=== PATIENT | female | born 1995 | race African-American/Black ===

== ENCOUNTER 2018-10-16 19:35 | Emergency (ER) | payer SELFPAY ==
[~2018-10-16] VITALS: Ht 157.5 cm; Wt 56.7 kg
[2018-10-16] MEDS ORDERED: LACTATED RINGERS 1,000 ML IV ONE ×2 (19:54→21:43)
[2018-10-16] MEDS ORDERED: ONDANSETRON 4 MG/2 ML (SDV) Z0FRAN IVP ONE (20:00)
[2018-10-16 20:07] LABS: BILIRUBIN,URINE NEGATIVE (NEGATIVE); COLOR,URINE YELLOW; GLUCOSE, URINE (UA) NEGATIVE (NEGATIVE); KETONES,URINE 1+ (NEGATIVE); LEUKOCYTE ESTERASE ,URINE 1+ (NEGATIVE); NITRITE,URINE NEGATIVE (NEGATIVE); PH,URINE 8 (5-9); PROTEIN,URINE 2+ (NEGATIVE); UROBILINOGEN,URINE 1 MG/DL (NORMAL)
[2018-10-16 20:10] LABS: BASOPHILS # (AUTO) 0.1 10^3/uL (0.0-0.1); BASOPHILS % (AUTO) 1 % (0-10); EOSINOPHILS # (AUTO) 0.2 10^3/uL (0.0-0.3); EOSINOPHILS % (AUTO) 3 % (0-10); HEMATOCRIT 39 % (35-52); HEMOGLOBIN 13.5 G/DL (11.5-16.0); LYMPHOCYTES % (AUTO) 25 % (12-44); MEAN CORPUSCULAR HEMOGLOBIN 30 PG (25-34); MEAN CORPUSCULAR HGB CONC 34 G/DL (32-36); MEAN CORPUSCULAR VOLUME 86 FL (80-99); MEAN PLATELET VOLUME 9.7 FL (7.4-10.4); MONOCYTES # (AUTO) 0.7 X 10^3 (0.0-1.0); MONOCYTES % (AUTO) 9 % (0-12); NEUTROPHILS % (AUTO) 63 % (42-75); PLATELET COUNT 441 10^3/uL (130-400); RED CELL DISTRIBUTION WIDTH 13.2 % (10.0-14.5)
[2018-10-16 20:15] LABS: AMORPHOUS SEDIMENT,UR FEW AMOR PHOSPHATE /LPF; BACTERIA,URINE TRACE /HPF; CLARITY,URINE SL CLOUDY; WBC,URINE RARE /HPF
[2018-10-16 20:20] LABS: AMPHETAMINE SCREEN, URINE NEGATIVE (NEGATIVE); BARBITURATE SCREEN URINE NEGATIVE (NEGATIVE); BENZODIAZEPINES SCREEN URINE NEGATIVE (NEGATIVE); CANNABINOID SCREEN, URINE POSITIVE (NEGATIVE); COCAINE SCREEN URINE POSITIVE (NEGATIVE); METHADONE STAT NEGATIVE (NEGATIVE); METHAMPHETAMINE SCREEN URINE S NEGATIVE (NEGATIVE); OPIATE SCREEN URINE NEGATIVE (NEGATIVE); OXYCODONE STAT NEGATIVE (NEGATIVE); PROPOXYPHENE STAT NEGATIVE (NEGATIVE); TRICYCLIC ANTIDEPRESSANTS SCRE NEGATIVE (NEGATIVE)
[2018-10-16 20:34] LABS: ALANINE AMINOTRANSFERASE 21 U/L (0-55); ALBUMIN 5.1 GM/DL (3.2-4.5); ALKALINE PHOSPHATASE 64 U/L (40-136); AMYLASE 66 U/L (25-125); BILIRUBIN,TOTAL 1.4 MG/DL (0.1-1.0); BUN/CREATININE RATIO 9; CALCIUM 10.4 MG/DL (8.5-10.1); CARBON DIOXIDE 22 MMOL/L (21-32); CHLORIDE 103 MMOL/L (98-107); CREATININE SERUM 0.86 MG/DL (0.60-1.30); GFR ESTIMATED > 60; GLUCOSE 102 MG/DL (70-105); MAGNESIUM 1.6 MG/DL (1.6-2.4); POTASSIUM 3.5 MMOL/L (3.6-5.0); SODIUM 140 MMOL/L (135-145); TOTAL PROTEIN 9.3 GM/DL (6.4-8.2)
[2018-10-16] MEDS ORDERED: PANTOPRAZOLE 40 MG (PROTONIX) VIAL IV ONE (20:45)
[2018-10-16] MEDS ORDERED: KETOROLAC 30 MG/ML VIAL IVP ONE (20:45)
[2018-10-16] MEDS ORDERED: diphenhydrAMINE 50 MG/ML INJ (BENADRYL) IM ONE (20:45)
[2018-10-16 20:59] LABS: PROTHROMBIN TIME PATIENT 13.7 SEC (12.2-14.7)
--- NOTE | 2018-10-16 21:05 | ED GI ---
General Chief Complaint: Abdominal/GI Problems Stated Complaint: VOMITING / CHEST PAIN Nursing Triage Note: Pt to ED with c/o non-stop vomiting since 0200 today. Pt reports drinking over the weekend for pt's birthday. Pt also reports sternal to L upper chest pain that began today. Pt has intermittent abdominal pain. Sepsis Screen: No Definite Risk History of Present Illness Date Seen by Provider: Oct 16, 2018 Time Seen by Provider: 19:45 Initial Comments 23 year old female reports nausea and vomiting since 0200, happening approximately every 20-30 minutes. She drank several alcoholic beverages last evening to celebrate her birthday (tequila, beer, wine, vodka, and Champagne), she was at a house with friends and has no reason to believe anyone would have put something in her drinks. No friends have similar n/v. She has drank alcohol before and not had these symptoms. She denies any illicit drug use with the alcohol, but she does report using marijuana regularly. She has had no liquid or solid po intake today Timing/Duration: 12-24 Hours Severity/Quality: Moderate Location: Epigastric, Generalized Abdomen Radiation: No Radiation Associated Symptoms: Headache, Heartburn, Nausea/Vomiting, Weakness Allergies and Home Medications Allergies Coded Allergies: No Known Drug Allergies (Unverified , 10/16/18) Patient Home Medication List Home Medication List Reviewed: Yes Review of Systems Review of Systems Constitutional: no symptoms reported, see HPI EENTM: No Symptoms Reported, See HPI Respiratory: No Symptoms Reported, See HPI Cardiovascular: No Symptoms Reported, See HPI Gastrointestinal: See HPI, Abdominal Pain; Denies Diarrhea; Nausea, Poor A ppetite, Poor Fluid Intake, Vomiting Genitourinary: No Symptoms Reported, See HPI All Other Systems Reviewed Negative Unless Noted: Yes Past Ncnkpci-Nzxhcf-Wforat Hx Past Med/Social Hx: Reviewed Nursing Past Med/Soc Hx Patient Social History Alcohol Use: Regular Use Recreational Drug Use: Yes Drug of Choice: marijuana Smoking Status: Current Someday Smoker Type Used: Cigarettes 2nd Hand Smoke Exposure: Yes Recent Foreign Travel: No Contact w/Someone Who Travel: No Recent Infectious Disease Expo: No Recent Hopitalizations: No Seasonal Allergies Seasonal Allergies: Yes Past Medical History Surgeries: No Respiratory: No Cardiac: No Neurological: No Last Menstrual Period: Oct 16, 2018 Genitourinary: No Gastrointestinal: No Musculoskeletal: No Endocrine: No HEENT: No Cancer: No Psychosocial: No Integumentary: No Blood Disorders: No Physical Exam Vital Signs Vital Signs - First Documented 10/16/18 19:42 Temp 99.4 Pulse 73 Resp 18 B/P (MAP) 144/90 (108) Pulse Ox 98 O2 Delivery Room Air Capillary Refill : Less Than 3 Seconds Height/Weight/BMI Height: 5'2.00" Weight: 125lbs. oz. [id number]; BMI Method:Stated General Appearance: WD/WN, no apparent distress HEENT: PERRL/EOMI, normal ENT inspection, TMs normal, pharynx normal, other (oral mucosa pale and dry) Neck: non-tender, full range of motion, supple, normal inspection Respiratory: chest non-tender, lungs clear, normal breath sounds Cardiovascular: normal peripheral pulses, regular rate, rhythm Gastrointestinal: normal bowel sounds, soft; No distended, No guarding, No rebound; tenderness (generalized from retching) Extremities: normal range of motion, non-tender, normal inspection, no pedal edema, no calf tenderness, normal capillary refill Back: normal inspection, no CVA tenderness, no vertebral tenderness Neurologic/Psychiatric: no motor/sensory deficits, alert, normal mood/affect, oriented x 3 Progress/Results/Core Measures Results/Orders Lab Results Laboratory Tests Test 10/16/18 19:59 10/16/18 20:03 Range/Units Urine Color YELLOW Urine Clarity SL CLOUDY Urine pH 8 5-9 Urine Specific [place] 1.010 L 1.016-1.022 Urine Protein 2+ H NEGATIVE Urine Glucose (UA) NEGATIVE NEGATIVE Urine Ketones 1+ H NEGATIVE Urine Nitrite NEGATIVE NEGATIVE Urine Bilirubin NEGATIVE NEGATIVE Urine Urobilinogen 1 NORMAL MG/DL Urine Leukocyte Esterase 1+ H NEGATIVE Urine RBC (Auto) 5+ H NEGATIVE Urine RBC 5-10 H /HPF Urine WBC RARE /HPF Urine Squamous Epithelial Cells 2-5 /HPF Urine Crystals PRESENT H /LPF Urine Amorphous Sediment FEW DEXTER PHOSPHATE H /LPF Urine Bacteria TRACE /HPF Urine Casts NONE /LPF Urine Mucus MODERATE H /LPF Urine Culture Indicated NO Urine Opiates Screen NEGATIVE NEGATIVE Urine Oxycodone Screen NEGATIVE NEGATIVE Urine Methadone Screen NEGATIVE NEGATIVE Urine Propoxyphene Screen NEGATIVE NEGATIVE Urine Barbiturates Screen NEGATIVE NEGATIVE Ur Tricyclic Antidepressants Screen NEGATIVE NEGATIVE Urine Phencyclidine Screen NEGATIVE NEGATIVE Urine Amphetamines Screen NEGATIVE NEGATIVE Urine Methamphetamines Screen NEGATIVE NEGATIVE Urine Benzodiazepines Screen NEGATIVE NEGATIVE Urine Cocaine Screen POSITIVE H NEGATIVE Urine Cannabinoids Screen POSITIVE H NEGATIVE White Blood Count 8.0 4.3-11.0 10^3/uL Red Blood Count 4.58 4.35-5.85 10^6/uL Hemoglobin 13.5 11.5-16.0 G/DL Hematocrit 39 35-52 % Mean Corpuscular Volume 86 80-99 FL Mean Corpuscular Hemoglobin 30 25-34 PG Mean Corpuscular Hemoglobin Concent 34 32-36 G/DL Red Cell Distribution Width 13.2 10.0-14.5 % Platelet Count 441 H 130-400 10^3/uL Mean Platelet Volume 9.7 7.4-10.4 FL Neutrophils (%) (Auto) 63 42-75 % Lymphocytes (%) (Auto) 25 12-44 % Monocytes (%) (Auto) 9 0-12 % Eosinophils (%) (Auto) 3 0-10 % Basophils (%) (Auto) 1 0-10 % Neutrophils # (Auto) 5.0 1.8-7.8 X 10^3 Lymphocytes # (Auto) 2.0 1.0-4.0 X 10^3 Monocytes # (Auto) 0.7 0.0-1.0 X 10^3 Eosinophils # (Auto) 0.2 0.0-0.3 10^3/uL Basophils # (Auto) 0.1 0.0-0.1 10^3/uL Prothrombin Time 13.7 12.2-14.7 SEC INR Comment 1.0 0.8-1.4 Activated Partial Thromboplast Time 26 24-35 SEC Sodium Level 140 135-145 MMOL/L Potassium Level 3.5 L 3.6-5.0 MMOL/L Chloride Level 103 98-107 MMOL/L Carbon Dioxide Level 22 21-32 MMOL/L Anion Gap 15 H 5-14 MMOL/L Blood Urea Nitrogen 8 7-18 MG/DL Creatinine 0.86 0.60-1.30 MG/DL Estimat Glomerular Filtration Rate > 60 BUN/Creatinine Ratio 9 Glucose Level 102 70-105 MG/DL Calcium Level 10.4 H 8.5-10.1 MG/DL Corrected Calcium 8.5-10.1 MG/DL Magnesium Level 1.6 1.6-2.4 MG/DL Total Bilirubin 1.4 H 0.1-1.0 MG/DL Aspartate Amino Transf (AST/SGOT) 29 5-34 U/L Alanine Aminotransferase (ALT/SGPT) 21 0-55 U/L Alkaline Phosphatase 64 40-136 U/L Total Protein 9.3 H 6.4-8.2 GM/DL Albumin 5.1 H 3.2-4.5 GM/DL Amylase Level 66 25-125 U/L Serum Alcohol < 10 <10 MG/DL My Orders Orders - JONATHAN TILLMAN Urine Bedside (10/16/18 19:54) Alcohol (10/16/18 19:54) Amylase (10/16/18 19:54) Cbc With Automated Diff (10/16/18 19:54) Comprehensive Metabolic Panel (10/16/18 19:54) Drug Screen Stat (Urine) (10/16/18 19:54) Ua Culture If Indicated (10/16/18 19:54) Ed Iv/Invasive Line Start (10/16/18 19:54) Lactated Ringers (Lr 1000 Ml Iv Solution (10/16/18 19:54) Ondansetron Injection (Zofran Injectio (10/16/18 20:00) Magnesium (10/16/18 20:03) Ketorolac Injection (Toradol Injection) (10/16/18 20:45) Diphenhydramine Injection (Benadryl Inje (10/16/18 20:45) Pantoprazole Injection (Protonix Injecti (10/16/18 20:45) Protime With Inr (10/16/18 20:47) Partial Thromboplastin Time (10/16/18 20:47) Prochlorperazine Injection (Compazine In (10/16/18 21:45) Ed Iv/Invasive Line Start (10/16/18 21:43) Lactated Ringers (Lr 1000 Ml Iv Solution (10/16/18 21:43) Medications Given in ED Current Medications Medications Dose Ordered Sig/Minerva Route Start Time Stop Time Status Last Admin Dose Admin Diphenhydramine HCl 25 mg ONCE ONCE IM 10/16/18 20:45 10/16/18 21:25 DC 10/16/18 20:57 25 MG Ketorolac Tromethamine 30 mg ONCE ONCE IVP 10/16/18 20:45 10/16/18 21:25 DC 10/16/18 20:57 30 MG Lactated Ringer's 1,000 ml @ 0 mls/hr Q0M ONCE IV 10/16/18 19:54 10/16/18 19:57 DC 10/16/18 20:10 0 MLS/HR Lactated Ringer's 1,000 ml @ 0 mls/hr Q0M ONCE IV 10/16/18 21:43 10/16/18 21:45 DC 10/16/18 21:48 1,000 MLS/HR Ondansetron HCl 8 mg ONCE ONCE IVP 10/16/18 20:00 10/16/18 20:01 DC 10/16/18 20:10 8 MG Pantoprazole 40 mg ONCE ONCE IV 10/16/18 20:45 10/16/18 21:25 DC 10/16/18 20:57 40 MG Prochlorperazine Edisylate 10 mg ONCE ONCE IV 10/16/18 21:45 10/16/18 21:46 DC 10/16/18 21:48 10 MG Vital Signs/I&O 10/16/18 19:42 Temp 99.4 Pulse 73 Resp 18 B/P (MAP) 144/90 (108) Pulse Ox 98 O2 Delivery Room Air Blood Pressure Mean: 108 Progress Progress Note : Time: 19:45 Progress Note Patient seen and evaluated, will obtain labs and give lactated Ringer's 1 L per IV with Zofran 8 mg IV. 2029 Patient having less retching. Will give Protonix 20 mg IV, Toradol 30 mg IV for headache, and Benadryl 25 mg IV. 2114 patient having persistent retching again, will give Compazine 10 mg IV and the second liter of lactated Ringer's per IV. Discussed Cocaine on UDS, patient denies using Cocaine but she now reports she drank ETOH and smoked significant amounts of marijuana last evening, she is unsure if she would've use cocaine or not. 2144 patient resting with eyes closed, vital signs remained stable, no signs of distress. 2229 IV infused, N/V improved. Taking sips of Sprite. Charge instructions and return precautions reviewed with the patient. All questions answered. Departure Impression Primary Impression: Toxic effect of unspecified alcohol Additional Impression: Vomiting Qualified Codes: G43.A1 - Cyclical vomiting, intractable Disposition: 01 HOME, SELF-CARE Condition: Improved Departure-Patient Inst. Decision time for Depature: 22:30 Referrals: NO,LOCAL PHYSICIAN (PCP/Family) Primary Care Physician Patient Instructions: Nausea and Vomiting, Adult (DC), Alcohol Poisoning (DC) Add. Discharge Instructions: Continue with clear liquids for the next 6 hours and then progress to bland food as tolerated. Uses Zofran every 6-8 hours as needed for nausea and vomiting. Establish care with a primary care provider. Avoid acute alcohol intoxication. Make sure to drink adequate water and eat when consuming alcohol. Return to emergency department for persistent nausea and vomiting not relieved by the Zofran, fever greater than 101, or new concerns. All discharge instructions reviewed with patient and/or family. Voiced understanding. JONATHAN TILLMAN Oct 16, 2018 21:05
[2018-10-16] MEDS ORDERED: PROCHLORPERAZINE 10 MG/2ML INJ (COMPAZINE) IV ONE (21:45)
[2018-10-16] MEDS ORDERED: RX-ONDANSETRON 4 MG ODT (ZOFRAN) PPK #4 PO STA (22:45)
[2018-10-16 22:56] VITALS: BP 123/70
[2018-10-17] MEDS ORDERED: PROM25TA14 PO (12:37)
[2018-10-17] MEDS ORDERED: ONDA4TAB10 PO (12:37)
== END 2018-10-16 22:57 | disposition home or self-care (01) ==
LOC: ER 19:38
DX: F10.129 Alcohol abuse with intoxication, unspecified (principal); R11.2 Nausea with vomiting, unspecified; F17.210 Nicotine dependence, cigarettes, uncomplicated; Y90.1 Blood alcohol level of 20-39 mg/100 ml
CPT/HCPCS: 36415; 80053; 80306; 80320; 81000; 82150; 83735; 84703; 85025; 85610; 85730

== ENCOUNTER 2018-10-17 09:59 | Emergency (ER) | payer SELFPAY ==
[~2018-10-17] VITALS: Ht 157.5 cm; Wt 56.7 kg
[2018-10-17] MEDS ORDERED: LACTATED RINGERS 1,000 ML IV ONE (10:10)
[2018-10-17] MEDS ORDERED: ONDANSETRON 4 MG/2 ML (SDV) Z0FRAN IVP ONE (10:15)
[2018-10-17] MEDS ORDERED: PROMETHAZINE INJ 25 MG/ML (PHENERGAN) AMP IVP ONE (10:15)
--- NOTE | 2018-10-17 10:19 | ED Abdominal Pain ---
General Chief Complaint: Abdominal/GI Problems Stated Complaint: VOMITING Source of Information: Patient, Other Exam Limitations: No Limitations History of Present Illness Date Seen by Provider: Oct 17, 2018 Time Seen by Provider: 10:02 Initial Comments Patient presents to the ER by private conveyance with her significant other and chief complaint that she's had 48 hours since Tuesday of nausea vomiting and abdominal pain. She says her whole belly hurts as well as today it's hurting up into her chest. She said she drank a lot of beer, wine, liquor, tequila, Champagne in celebration of her birthday. She came to the ER yesterday and her alcohol levels were negative. She was given some Zofran, Compazine, Toradol and Benadryl which helped her nausea and she could go home and sleep. However she woke up again having pain and nausea. She has no history of coronary disease or medical problems. No surgeries or trauma. She was found to have cocaine in her system and she says she uses marijuana regularly but not cocaine however she does not remember much of the night so she says it's possible she could've used it. She denies a history of high blood pressure, diabetes hyperlipidemia. She does not know her family history because she is adopted. She had a history of bulimia and she uses the marijuana to help keep her appetite. She does occasionally smoke cigarettes. Allergies and Home Medications Allergies Coded Allergies: No Known Drug Allergies (Unverified , 10/16/18) Patient Home Medication List Home Medication List Reviewed: Yes Review of Systems Review of Systems Constitutional: No chills, No diaphoresis EENTM: No Blurred Vision, No Double Vision Respiratory: Denies Cough, Denies Shortness of Air Cardiovascular: See HPI, Chest Pain; Denies Edema Gastrointestinal: Denies Abdomen Distended; Abdominal Pain; Denies Constipated, Denies Diarrhea; Nausea, Poor Appetite, Poor Fluid Intake, Vomiting Genitourinary: Denies Burning, Denies Discharge Musculoskeletal: No back pain, No joint pain Skin: No pruritus, No rash Past Fjhhhla-Czlfri-Kcmcaj Hx Patient Social History Alcohol Use: Denies Use Recreational Drug Use: Yes Drug of Choice: marijuana Smoking Status: Current Someday Smoker Type Used: Cigarettes 2nd Hand Smoke Exposure: Yes Recent Hopitalizations: No Seasonal Allergies Seasonal Allergies: Yes Past Medical History Surgeries: No Respiratory: No Cardiac: No Neurological: No Genitourinary: No Gastrointestinal: No Musculoskeletal: No Endocrine: No HEENT: No Cancer: No Psychosocial: No Integumentary: No Blood Disorders: No Physical Exam Vital Signs Vital Signs - First Documented 10/17/18 10:01 Temp 99.0 Pulse 78 Resp 18 B/P (MAP) 149/76 (100) Pulse Ox 100 Capillary Refill : Height/Weight/BMI Height: 5'2.00" Weight: 125lbs. oz. 56.508272rc; BMI Method:Stated General Appearance: WD/WN, moderate distress HEENT: PERRL/EOMI, normal ENT inspection, pharynx normal (oral mucosa mildly dry) Respiratory: No chest non-tender; lungs clear, normal breath sounds, no respiratory distress, no accessory muscle use, other (chest pain reproducible to direct palpation over the manubrium.) Cardiovascular: normal peripheral pulses, regular rate, rhythm, no edema Peripheral Pulses: 2+ Radial Pulses (R), 2+ Radial Pulses (L) Gastrointestinal: soft, abnormal bowel sounds (hypoactive), tenderness (all 4 quadrants) Extremities: normal range of motion, non-tender, normal capillary refill Progress/Results/Core Measures Results/Orders Lab Results Laboratory Tests Test 10/17/18 10:23 Range/Units White Blood Count 11.6 H 4.3-11.0 10^3/uL Red Blood Count 4.04 L 4.35-5.85 10^6/uL Hemoglobin 12.1 11.5-16.0 G/DL Hematocrit 35 35-52 % Mean Corpuscular Volume 85 80-99 FL Mean Corpuscular Hemoglobin 30 25-34 PG Mean Corpuscular Hemoglobin Concent 35 32-36 G/DL Red Cell Distribution Width 13.2 10.0-14.5 % Platelet Count 373 130-400 10^3/uL Mean Platelet Volume 10.0 7.4-10.4 FL Neutrophils (%) (Auto) 83 H 42-75 % Lymphocytes (%) (Auto) 7 L 12-44 % Monocytes (%) (Auto) 9 0-12 % Eosinophils (%) (Auto) 0 0-10 % Basophils (%) (Auto) 0 0-10 % Neutrophils # (Auto) 9.7 H 1.8-7.8 X 10^3 Lymphocytes # (Auto) 0.8 L 1.0-4.0 X 10^3 Monocytes # (Auto) 1.1 H 0.0-1.0 X 10^3 Eosinophils # (Auto) 0.0 0.0-0.3 10^3/uL Basophils # (Auto) 0.0 0.0-0.1 10^3/uL Neutrophils % (Manual) 86 % Lymphocytes % (Manual) 7 % Monocytes % (Manual) 7 % Blood Morphology Comment NORMAL Sodium Level 138 135-145 MMOL/L Potassium Level 3.5 L 3.6-5.0 MMOL/L Chloride Level 103 98-107 MMOL/L Carbon Dioxide Level 19 L 21-32 MMOL/L Anion Gap 16 H 5-14 MMOL/L Blood Urea Nitrogen 10 7-18 MG/DL Creatinine 0.84 0.60-1.30 MG/DL Estimat Glomerular Filtration Rate > 60 BUN/Creatinine Ratio 12 Glucose Level 104 70-105 MG/DL Calcium Level 9.8 8.5-10.1 MG/DL Corrected Calcium 9.5 8.5-10.1 MG/DL Magnesium Level 1.4 L 1.6-2.4 MG/DL Total Bilirubin 1.4 H 0.1-1.0 MG/DL Aspartate Amino Transf (AST/SGOT) 23 5-34 U/L Alanine Aminotransferase (ALT/SGPT) 17 0-55 U/L Alkaline Phosphatase 54 40-136 U/L Troponin I < 0.028 <0.028 NG/ML Total Protein 7.8 6.4-8.2 GM/DL Albumin 4.4 3.2-4.5 GM/DL Lipase 15 8-78 U/L My Orders Orders - HARSHA GALICIA Ua Culture If Indicated (10/17/18 10:02) Ondansetron Injection (Zofran Injectio (10/17/18 10:15) Promethazine Injection (Phenergan Injec (10/17/18 10:15) Ekg Tracing (10/17/18 10:10) Continuous Ekg Monitoring (10/17/18 10:10) Troponin I (10/17/18 10:10) Cbc With Automated Diff (10/17/18 10:10) Comprehensive Metabolic Panel (10/17/18 10:10) Magnesium (10/17/18 10:10) Lipase (10/17/18 10:10) Ed Iv/Invasive Line Start (10/17/18 10:10) Lactated Ringers (Lr 1000 Ml Iv Solution (10/17/18 10:10) Chest Pa/Lat (2 View) (10/17/18 10:29) Manual Differential (10/17/18 10:23) Ketorolac Injection (Toradol Injection) (10/17/18 11:30) Magnesium 1 Gm/100 Ml Ivpb (Magnesium [place] (10/17/18 11:30) Medications Given in ED Current Medications Medications Dose Ordered Sig/Minerva Route Start Time Stop Time Status Last Admin Dose Admin Ketorolac Tromethamine 30 mg ONCE ONCE IVP 10/17/18 11:30 10/17/18 11:31 DC 10/17/18 11:28 30 MG Lactated Ringer's 1,000 ml @ 0 mls/hr Q0M ONCE IV 10/17/18 10:10 10/17/18 10:12 DC 10/17/18 10:27 1,000 MLS/HR Magnesium Sulfate/ Dextrose 100 ml @ 100 mls/hr ONCE ONCE IV 10/17/18 11:30 10/17/18 12:29 DC 10/17/18 11:29 100 MLS/HR Ondansetron HCl 8 mg ONCE ONCE IVP 10/17/18 10:15 10/17/18 10:16 DC 10/17/18 10:26 8 MG Promethazine HCl 25 mg ONCE ONCE IVP 10/17/18 10:15 10/17/18 10:16 DC 10/17/18 10:27 25 MG Vital Signs/I&O 10/17/18 10:01 Temp 99.0 Pulse 78 Resp 18 B/P (MAP) 149/76 (100) Pulse Ox 100 Progress Progress Note #1: Time: 10:23 Progress Note I suspect the patient has an alcohol-induced ileus. We'll get a lipase to rule out pancreatitis. She does not have Freeman sign or rebound tenderness over McBurney's point. She does have a positive right-sided psoas sign but not left. With her use of cocaine is also possible she could have vasospasm to the mesentery causing ischemia so we will check a lactate. Vital signs are aseptic. We'll give her a liter of lactated Ringer's and Zofran 8 mg with Phenergan 25 mg. Lastly could be vasospasm coronaries causing her chest pain however she is tender directly to palpation over her chest wall so it's more likely she is having costochondritis secondary to the retching. She's not having any blood in her vomitus so Boerhaave's is less likely. She will not tolerate aspirin because of her vomiting but we'll get an EKG and troponin. After 2 days if she was having any coronary insufficiency a troponin should be positive. Chest x-ray can look for free air or subcutaneous emphysema. Progress Note #2: Time: 12:31 Progress Note The patient's symptoms have abated and she feels much better. She is concerned that her symptoms will come back and we have offered an observation stay versus going home with medications and trialing outpatient and she would prefer the latter. Initial ECG Impression Date: Oct 17, 2018 Initial ECG Impression Time: 10:14 Initial ECG Rate: 78 Initial ECG Rhythm: Normal Sinus Initial ECG Intervals: QT (470) Initial ECG Impression: Normal Initial ECG Comparisson: No Previous ECG Available Comment Normal sinus rhythm without clinically significant ST elevation or depression. Diagnostic Imaging Diagonstic Imaging: Xray Plain Films/CT/US/NM/MRI: chest (2v) Comments NAME: ANNALEE PICKENS [facility] REC#: [id number] PT STATUS: REG ER : 1995 PHYSICIAN: HARSHA GALICIA MD ADMIT DATE: 10/17/18/ER Draft Date of Exam:10/17/18 CHEST PA/LAT (2 VIEW) Indication: Chest pain, nausea 2 days of duration. No previous. Findings: The lungs are clear. The heart and vessels normal. The cardiomediastinal and hilar contours normal. No free air beneath the diaphragms. No pleural pathology. Impression: Negative. Dictated on workstation # [id number] Dict: 10/17/18 1101 Trans: 10/17/18 110[address] [facility], [place] [id number] Interpreted by: CHRIS AMLONTE Electronically signed by: Reviewed: Reviewed by Me Departure Impression Primary Impression: Ileus Disposition: 01 HOME, SELF-CARE Condition: Stable Departure-Patient Inst. Decision time for Depature: 12:35 Referrals: NO,LOCAL PHYSICIAN (PCP/Family) Primary Care Physician Patient Instructions: Postoperative Ileus (DC) Add. Discharge Instructions: Review the handout on ileus. If you have nausea take one to 2 tablets of Zofran under the tongue every 6 hours as needed. If you have persistent nausea take a tablet of Phenergan every 6 hours as needed. Stick to a liquid diet. Once you're no longer having abdominal pain or nausea then you can advance your diet. For pain use Tylenol 1000 mg every 8 hours in addition to ibuprofen 800 mg every 8 hours in addition to heating pads. Return to the ER if you're unable to control your pain and nausea. All discharge instructions reviewed with patient and/or family. Voiced understanding. Scripts Promethazine HCl (Promethazine Tablet) 25 Mg Tablet 25 MG PO Q6H PRN for NAUSEA/VOMITING, #14 TAB 0 Refills Prov: HARSHA GALICIA 10/17/18 Ondansetron HCl (Ondansetron HCl) 4 Mg Tablet 4-8 MG PO Q6H PRN for NAUSEA/VOMITING-1ST LINE, #14 TAB 0 Refills Prov: HARSHA GALICIA 10/17/18 Work/School Note: Work Release Form Date Seen in the Emergency Department: Oct 17, 2018 Return to Work: Oct 19, 2018 Restrictions: No Restrictions HARSHA GALICIA Oct 17, 2018 10:19
[2018-10-17 10:37] LABS: BASOPHILS % (AUTO) 0 % (0-10); EOSINOPHILS % (AUTO) 0 % (0-10); HEMATOCRIT 35 % (35-52); HEMOGLOBIN 12.1 G/DL (11.5-16.0); LYMPHOCYTES # (AUTO) 0.8 X 10^3 (1.0-4.0); LYMPHOCYTES % (AUTO) 7 % (12-44); MEAN CORPUSCULAR HEMOGLOBIN 30 PG (25-34); MEAN CORPUSCULAR HGB CONC 35 G/DL (32-36); MEAN CORPUSCULAR VOLUME 85 FL (80-99); MONOCYTES # (AUTO) 1.1 X 10^3 (0.0-1.0); MONOCYTES % (AUTO) 9 % (0-12); NEUTROPHILS # (AUTO) 9.7 X 10^3 (1.8-7.8); NEUTROPHILS % (AUTO) 83 % (42-75); PLATELET COUNT 373 10^3/uL (130-400); RED CELL DISTRIBUTION WIDTH 13.2 % (10.0-14.5); WHITE BLOOD COUNT 11.6 10^3/uL (4.3-11.0)
[2018-10-17 10:58] LABS: ALANINE AMINOTRANSFERASE 17 U/L (0-55); ALBUMIN 4.4 GM/DL (3.2-4.5); ALKALINE PHOSPHATASE 54 U/L (40-136); BILIRUBIN,TOTAL 1.4 MG/DL (0.1-1.0); BUN/CREATININE RATIO 12; CALCIUM 9.8 MG/DL (8.5-10.1); CARBON DIOXIDE 19 MMOL/L (21-32); CHLORIDE 103 MMOL/L (98-107); CREATININE SERUM 0.84 MG/DL (0.60-1.30); GFR ESTIMATED > 60; GLUCOSE 104 MG/DL (70-105); LIPASE 15 U/L (8-78); MAGNESIUM 1.4 MG/DL (1.6-2.4); POTASSIUM 3.5 MMOL/L (3.6-5.0); SODIUM 138 MMOL/L (135-145); TOTAL PROTEIN 7.8 GM/DL (6.4-8.2)
--- NOTE | 2018-10-17 11:03 | Diagnostic Imaging Report ---
Indication: Chest pain, nausea 2 days of duration. No previous. Findings: The lungs are clear. The heart and vessels normal. The cardiomediastinal and hilar contours normal. No free air beneath the diaphragms. No pleural pathology. Impression: Negative. Dictated by: Dictated on workstation # [id number]
--- NOTE | 2018-10-17 11:17 | NUR ---
TO ROOM FLUIDS INFUSING REPORTS NAUSEA BETTER CON'T TO HAVE ABD PAIN.
[2018-10-17] MEDS ORDERED: MAGNESIUM 1 GM/100 ML IVPB 100 ML IV ONE (11:30)
[2018-10-17] MEDS ORDERED: KETOROLAC 30 MG/ML VIAL IVP ONE (11:30)
[2018-10-17 11:33] LABS: LYMPHOCYTES % (MANUAL) 7 %; MONOCYTES % (MANUAL) 7 %; NEUTROPHILS % (MANUAL) 86 %; RBC MORPH NORMAL
[2018-10-17] MEDS ORDERED: PROM25TA14 PO (12:37)
[2018-10-17] MEDS ORDERED: ONDA4TAB10 PO (12:37)
[2018-10-17 13:04] VITALS: BP 145/94
== END 2018-10-17 13:04 | disposition home or self-care (01) ==
LOC: EDUNIT# 09:59 → ER 10:00
DX: K56.7 Ileus, unspecified (principal); F17.210 Nicotine dependence, cigarettes, uncomplicated
CPT/HCPCS: 36415; 71046; 80053; 83690; 83735; 84484; 85007; 85027; 93005

== ENCOUNTER 2018-10-18 09:49 | Observation (INO) | payer SELFPAY ==
[~2018-10-18] VITALS: Ht 157.5 cm; Wt 56.7 kg
[~2018-10-18 09:49] MED LIST: ONDA4TAB10 PO; PROM25TA14 PO
[2018-10-18] MEDS ORDERED: LACTATED RINGERS 1,000 ML IV ONE ×2 (10:13→12:36)
[2018-10-18] MEDS ORDERED: FAMOTIDINE 20MG/2ML IV (PEPCID) IV STA (10:21)
--- NOTE | 2018-10-18 10:29 | ED Abdominal Pain ---
General Chief Complaint: Abdominal/GI Problems Stated Complaint: VOMITING Nursing Triage Note: PT AMBULATED TO ROOM 10 PT CO OF ABD PAIN, EPIGASTRIC PAIN, VOMITING, PT HAS BEEN SEEN PAST 2 DAYS IN ED FOR SAME CO. PT DENIES USE OF ALCOHOL Sepsis Screen: No Definite Risk Source of Information: Patient Exam Limitations: No Limitations History of Present Illness Date Seen by Provider: Oct 18, 2018 Time Seen by Provider: 10:15 Initial Comments Here with persistent nausea and vomiting over the past several days. This is her third visit in 3 days related to this. She's had workup related to the epigastric pain and vomiting as well as IV fluids. She states that she hasn't b een unable to keep anything down including sips of water. Complains of pain in her throat down to her stomach. Denies smoking currently or recent marijuana use since onset. Overall feels weak. Timing/Duration: 3-4 Days Severity/Quality: Moderate, Burning Location: Epigastric Radiation: No Radiation Activities at Onset: Other (excessive drinking for 23th birthday) Modifying Factors: Worsens With Eating; Improves With Resting Associated Symptoms: No Fever/Chills; Fatigue, Nausea/Vomiting; No Swelling/Mass in Abdomen; Weakness Allergies and Home Medications Allergies Coded Allergies: No Known Drug Allergies (Unverified , 10/16/18) Home Medications Ondansetron HCl 4 Mg Tablet, 4-8 MG PO Q6H PRN for NAUSEA/VOMITING-1ST LINE Prescribed by: HARSHA GALICIA on 10/17/18 1237 Promethazine HCl 25 Mg Tablet, 25 MG PO Q6H PRN for NAUSEA/VOMITING Prescribed by: HARSHA GALICIA on 10/17/18 1237 Patient Home Medication List Home Medication List Reviewed: Yes Review of Systems Review of Systems Constitutional: see HPI; No chills, No fever EENTM: Throat Pain; No Throat Swelling Respiratory: Cough; Denies Shortness of Air Cardiovascular: See HPI; Denies Edema, Denies Syncope Gastrointestinal: Abdominal Pain, Nausea, Vomiting Genitourinary: Pain (kidneys), Other (decreased output) Musculoskeletal: no symptoms reported Skin: no symptoms reported Psychiatric/Neurological: No Symptoms Reported Endocrine: No Symptoms Reported All Other Systems Reviewed Negative Unless Noted: Yes Past Xegnvkn-Rhztci-Hwrhhz Hx Past Med/Social Hx: Reviewed Nursing Past Med/Soc Hx Patient Social History Alcohol Use: Occasionally Uses Number of Drinks Today: 0 Recreational Drug Use: Yes Drug of Choice: marijuana Smoking Status: Current Everyday Smoker Type Used: Cigarettes 2nd Hand Smoke Exposure: Yes Recent Foreign Travel: No Contact w/Someone Who Travel: No Recent Infectious Disease Expo: No Recent Hopitalizations: No Seasonal Allergies Seasonal Allergies: Yes Past Medical History Surgeries: No Respiratory: No Cardiac: No Neurological: No Genitourinary: No Gastrointestinal: No Musculoskeletal: No Endocrine: No HEENT: No Cancer: No Psychosocial: No Integumentary: No Blood Disorders: No Family Medical History Reviewed Nursing Family Hx Cancer (lung), Other Conditions/Hx (gallbladder) Physical Exam Vital Signs Vital Signs - First Documented 10/18/18 10:04 Temp 98.9 Pulse 73 Resp 18 B/P (MAP) 139/99 (112) Pulse Ox 99 Capillary Refill : Less Than 3 Seconds Height/Weight/BMI Height: 5'2.00" Weight: 125lbs. oz. 56.421474dm; BMI Method:Stated General Appearance: WD/WN, mild distress HEENT: PERRL/EOMI, pharyngeal erythema Neck: full range of motion, supple Respiratory: lungs clear, normal breath sounds Cardiovascular: regular rate, rhythm, no murmur Gastrointestinal: soft, tenderness (epigastric) Extremities: non-tender, normal inspection Back: normal inspection, no CVA tenderness, no vertebral tenderness Neurologic/Psychiatric: alert, oriented x 3 Skin: normal color, warm/dry Progress/Results/Core Measures Results/Orders Lab Results Laboratory Tests Test 10/18/18 10:25 10/18/18 12:05 Range/Units White Blood Count 8.1 4.3-11.0 10^3/uL Red Blood Count 3.98 L 4.35-5.85 10^6/uL Hemoglobin 11.9 11.5-16.0 G/DL Hematocrit 35 35-52 % Mean Corpuscular Volume 87 80-99 FL Mean Corpuscular Hemoglobin 30 25-34 PG Mean Corpuscular Hemoglobin Concent 34 32-36 G/DL Red Cell Distribution Width 13.0 10.0-14.5 % Platelet Count 303 130-400 10^3/uL Mean Platelet Volume 10.4 7.4-10.4 FL Neutrophils (%) (Auto) 76 H 42-75 % Lymphocytes (%) (Auto) 13 12-44 % Monocytes (%) (Auto) 11 0-12 % Eosinophils (%) (Auto) 0 0-10 % Basophils (%) (Auto) 0 0-10 % Neutrophils # (Auto) 6.1 1.8-7.8 X 10^3 Lymphocytes # (Auto) 1.0 1.0-4.0 X 10^3 Monocytes # (Auto) 0.9 0.0-1.0 X 10^3 Eosinophils # (Auto) 0.0 0.0-0.3 10^3/uL Basophils # (Auto) 0.0 0.0-0.1 10^3/uL Sodium Level 138 135-145 MMOL/L Potassium Level 4.2 3.6-5.0 MMOL/L Chloride Level 104 98-107 MMOL/L Carbon Dioxide Level 21 21-32 MMOL/L Anion Gap 13 5-14 MMOL/L Blood Urea Nitrogen 12 7-18 MG/DL Creatinine 0.85 0.60-1.30 MG/DL Estimat Glomerular Filtration Rate > 60 BUN/Creatinine Ratio 14 Glucose Level 92 70-105 MG/DL Calcium Level 9.5 8.5-10.1 MG/DL Corrected Calcium 9.3 8.5-10.1 MG/DL Magnesium Level 2.0 1.6-2.4 MG/DL Total Bilirubin 0.6 0.1-1.0 MG/DL Aspartate Amino Transf (AST/SGOT) 30 5-34 U/L Alanine Aminotransferase (ALT/SGPT) 21 0-55 U/L Alkaline Phosphatase 49 40-136 U/L C-Reactive Protein High Sensitivity 0.17 0.00-0.50 MG/DL Total Protein 8.3 H 6.4-8.2 GM/DL Albumin 4.3 3.2-4.5 GM/DL Serum Test, Qualitative NEGATIVE NEGATIVE Urine Color YELLOW Urine Clarity CLEAR Urine pH 7 5-9 Urine Specific Ennice 1.010 L 1.016-1.022 Urine Protein 1+ H NEGATIVE Urine Glucose (UA) 4+ H NEGATIVE Urine Ketones 4+ H NEGATIVE Urine Nitrite NEGATIVE NEGATIVE Urine Bilirubin NEGATIVE NEGATIVE Urine Urobilinogen NORMAL NORMAL MG/DL Urine Leukocyte Esterase NEGATIVE NEGATIVE Urine RBC (Auto) 5+ H NEGATIVE Urine RBC 0-2 /HPF Urine WBC NONE /HPF Urine Squamous Epithelial Cells 5-10 /HPF Urine Crystals NONE /LPF Urine Bacteria TRACE /HPF Urine Casts NONE /LPF Urine Mucus MODERATE H /LPF Urine Culture Indicated NO My Orders Orders - MAGED LYNN MD Cbc With Automated Diff (10/18/18 10:13) Comprehensive Metabolic Panel (10/18/18 10:13) Hs C Reactive Protein (10/18/18 10:13) Ua Culture If Indicated (10/18/18 10:13) Ed Iv/Invasive Line Start (10/18/18 10:13) Lactated Ringers (Lr 1000 Ml Iv Solution (10/18/18 10:13) Magnesium (10/18/18 10:13) Ondansetron Injection (Zofran Injectio (10/18/18 10:30) Famotidine Injection (Pepcid Injection) (10/18/18 10:21) D5 Ns 1000 Ml Iv Solution (Dextrose 5%/0 (10/18/18 11:05) Lidocaine 2% Viscous 15 Ml (Xylocaine Vi (10/18/18 11:15) Antacid Suspension (Mylanta Suspension (10/18/18 11:15) Lactated Ringers (Lr 1000 Ml Iv Solution (10/18/18 12:36) Haloperidol Injection (Haldol Injectio (10/18/18 13:20) Hcg,Qualitative Serum (10/18/18 13:44) Pantoprazole Injection (Protonix Injecti (10/18/18 14:00) Medications Given in ED Current Medications Medications Dose Ordered Sig/Minerva Route Start Time Stop Time Status Last Admin Dose Admin Al Hydrox/Mg Hydrox/Simethicone 30 ml ONCE ONCE PO 10/18/18 11:15 10/18/18 11:16 DC 10/18/18 11:17 30 ML Dextrose/Sodium Chloride 1,000 ml @ 0 mls/hr Q0M ONCE IV 10/18/18 11:05 10/18/18 11:06 DC 10/18/18 11:08 1,000 MLS/HR Haloperidol Lactate 5 mg STK-MED ONCE .ROUTE 10/18/18 13:20 10/18/18 13:28 DC 10/18/18 13:30 2 MG Lactated Ringer's 1,000 ml @ 0 mls/hr Q0M ONCE IV 10/18/18 10:13 10/18/18 10:15 DC 10/18/18 10:25 1,000 MLS/HR Lactated Ringer's 1,000 ml @ ud STK-MED ONCE IV 10/18/18 12:36 10/18/18 12:45 DC 10/18/18 12:46 1,000 MLS/HR Lidocaine HCl 15 ml ONCE ONCE PO 10/18/18 11:15 10/18/18 11:16 DC 10/18/18 11:17 15 ML Ondansetron HCl 4 mg ONCE ONCE IVP 10/18/18 10:30 10/18/18 10:31 DC 10/18/18 10:35 4 MG Vital Signs/I&O 10/18/18 10:04 Temp 98.9 Pulse 73 Resp 18 B/P (MAP) 139/99 (112) Pulse Ox 99 Blood Pressure Mean: 112 Progress Progress Note : Progress Note Seen and evaluated. IV, labs, UA, LR 1 L bolus, Pepcid 20 mg IV and Zofran 4 mg IV ordered. Reviewed chart and labs from previous 2 visits. Monitor patient. Repeat fluids with D5NS 1 L bolus as patient has not urinated yet. 1340: Patient did receive another liter of LR and UA did show 4+ ketones. There was glucose in the urine but this was after patient received the D5NS fluid bolus. Patient still with significant nausea and has had vomiting. Patient did receive 2 mg of Haldol IV for concerns about hyperemesis related to cannabis. That this is really working well. Since this is her third visit in 3 days regarding the same complaint, I did discuss the case with Dr. Tang who has graciously accepted the patient for admission, observation status. We will add Protonix 40 mg IV now and continue Zofran, Phenergan and Pepcid IV as well as normal saline while hospitalized. This is discussed with the patient who is very appreciative and agreed with the plan. Departure Communication (Admissions) Time/Spoke to Admitting Phy: 13:40 Impression Primary Impression: Intractable nausea and vomiting Qualified Codes: R11.2 - Nausea with vomiting, unspecified Disposition: ADMITTED INPATIENT Condition: Stable Admissions Decision to Admit Reason: Admit from ER (General) Decision to Admit/Date: Oct 18, 2018 Time/Decision to Admit Time: 13:40 Departure-Patient Inst. Referrals: NO,LOCAL PHYSICIAN (PCP/Family) Primary Care Physician MAGED LYNN MD Oct 18, 2018 10:29
[2018-10-18] MEDS ORDERED: ONDANSETRON 4 MG/2 ML (SDV) Z0FRAN IVP ONE (10:30)
[2018-10-18 10:37] LABS: BASOPHILS % (AUTO) 0 % (0-10); EOSINOPHILS % (AUTO) 0 % (0-10); HEMATOCRIT 35 % (35-52); HEMOGLOBIN 11.9 G/DL (11.5-16.0); LYMPHOCYTES % (AUTO) 13 % (12-44); MEAN CORPUSCULAR HEMOGLOBIN 30 PG (25-34); MEAN CORPUSCULAR HGB CONC 34 G/DL (32-36); MEAN CORPUSCULAR VOLUME 87 FL (80-99); MEAN PLATELET VOLUME 10.4 FL (7.4-10.4); MONOCYTES # (AUTO) 0.9 X 10^3 (0.0-1.0); MONOCYTES % (AUTO) 11 % (0-12); NEUTROPHILS # (AUTO) 6.1 X 10^3 (1.8-7.8); NEUTROPHILS % (AUTO) 76 % (42-75); PLATELET COUNT 303 10^3/uL (130-400); WHITE BLOOD COUNT 8.1 10^3/uL (4.3-11.0)
--- NOTE | 2018-10-18 10:37 | NUR ---
PT STATES SMOKES POT DAILY FOR BULEMIA
[2018-10-18 11:01] LABS: ALANINE AMINOTRANSFERASE 21 U/L (0-55); ALBUMIN 4.3 GM/DL (3.2-4.5); ALKALINE PHOSPHATASE 49 U/L (40-136); BILIRUBIN,TOTAL 0.6 MG/DL (0.1-1.0); BUN/CREATININE RATIO 14; CALCIUM 9.5 MG/DL (8.5-10.1); CARBON DIOXIDE 21 MMOL/L (21-32); CHLORIDE 104 MMOL/L (98-107); CREATININE SERUM 0.85 MG/DL (0.60-1.30); GFR ESTIMATED > 60; GLUCOSE 92 MG/DL (70-105); POTASSIUM 4.2 MMOL/L (3.6-5.0); SODIUM 138 MMOL/L (135-145); TOTAL PROTEIN 8.3 GM/DL (6.4-8.2)
[2018-10-18] MEDS ORDERED: D5 NS 1000 ML IV SOLUTION 1,000 ML IV ONE (11:05)
[2018-10-18] MEDS ORDERED: ANTACID SUSP 30 ML UDC (MYLANTA) PO ONE (11:15)
[2018-10-18] MEDS ORDERED: LIDOCAINE 2% VISCOUS 15 ML UDC PO ONE (11:15)
--- NOTE | 2018-10-18 11:34 | NUR ---
PT HAS HAD RETCHING ONCE AFTER IV START. NO FURTHER RETCHING OR VOMITING
[2018-10-18 12:21] LABS: BILIRUBIN,URINE NEGATIVE (NEGATIVE); CLARITY,URINE CLEAR; COLOR,URINE YELLOW; GLUCOSE, URINE (UA) 4+ (NEGATIVE); KETONES,URINE 4+ (NEGATIVE); LEUKOCYTE ESTERASE ,URINE NEGATIVE (NEGATIVE); NITRITE,URINE NEGATIVE (NEGATIVE); PH,URINE 7 (5-9); PROTEIN,URINE 1+ (NEGATIVE); UROBILINOGEN,URINE NORMAL (NORMAL)
--- NOTE | 2018-10-18 12:25 | NUR ---
PT STATES VOMITED X1
[2018-10-18 12:33] LABS: BACTERIA,URINE TRACE /HPF; RBC,URINE 0-2 /HPF
[2018-10-18] MEDS ORDERED: HALOPERIDOL 5 MG/ML (HALDOL) AMP ONE (13:20)
[2018-10-18] MEDS ORDERED: PANTOPRAZOLE 40 MG (PROTONIX) VIAL IV ONE (14:00)
[2018-10-18 14:45] VITALS: BP 146/91
--- NOTE | 2018-10-18 14:45 | NUR ---
ANNALEE PICKENS admitted to room 432-1, with an admitting diagnosis of INTRACTABLE NAUSEA VOMITING, on 10/18/18 from ED via WC, accompanied by STAFF AND SO. ANNALEE PICKENS introduced to surroundings, call light, bed controls, phone, TV, temperature control, lights, meal times, smoking policy, visitor policy, side rail policy, bathrooms and showers. Patient Rights given to patient in the handbook. ANNALEE PICKENS verbalizes understanding that [facility] is not responsible for the loss or damage to any personal effects or valuables that are kept in the patients posession during their hospitalization. ANNALEE PICKENS verbalizes understanding of Interdisciplinary Patient Education. Patient and/or family were informed about the Rapid Response Team and its purpose.
[2018-10-18] MEDS ORDERED: CATHETER FLUSH 10 ML SYR IV PRN (15:00)
[2018-10-18] MEDS: NS IV 1000 ML 1,000 ML IV SCH ×2 (15:39→23:05)
[2018-10-18 16:00] VITALS: BP 132/89
--- NOTE | 2018-10-18 16:01 | NUR ---
CALLED [facility] AND VERIFIED THE PATIENT DID INDUSTRIAL PAINTER THE TWO NAUSEA MEDICATIONS FROM THE ED. SHE STATES SHE NORMALLY DOES NOT TAKE ANY OTHER PRESCRIPTION MEDICATIONS.
[2018-10-18] MEDS ORDERED: MELATONIN 3 MG TABLET PO PRN (16:30)
[2018-10-18] MEDS: ONDANSETRON 4 MG/2 ML (SDV) Z0FRAN IV PRN ×2 (16:40→21:56)
[2018-10-18 20:00] VITALS: BP 136/80
[2018-10-18] MEDS: PROMETHAZINE INJ 25 MG/ML (PHENERGAN) AMP IV PRN (23:05)
[2018-10-19 00:31] VITALS: BP 145/97
[2018-10-19 04:20] VITALS: BP 147/88
[2018-10-19] MEDS: PROMETHAZINE INJ 25 MG/ML (PHENERGAN) AMP IV PRN ×2 (06:36→19:43)
[2018-10-19] MEDS: NS IV 1000 ML 1,000 ML IV SCH ×3 (06:36→22:56)
[2018-10-19 06:43] LABS: BASOPHILS % (AUTO) 0 % (0-10); EOSINOPHILS % (AUTO) 0 % (0-10); HEMATOCRIT 34 % (35-52); HEMOGLOBIN 11.7 G/DL (11.5-16.0); LYMPHOCYTES # (AUTO) 1.6 X 10^3 (1.0-4.0); LYMPHOCYTES % (AUTO) 30 % (12-44); MEAN CORPUSCULAR HGB CONC 34 G/DL (32-36); MEAN CORPUSCULAR VOLUME 87 FL (80-99); MEAN PLATELET VOLUME 10.4 FL (7.4-10.4); MONOCYTES # (AUTO) 0.7 X 10^3 (0.0-1.0); MONOCYTES % (AUTO) 12 % (0-12); NEUTROPHILS % (AUTO) 57 % (42-75); PLATELET COUNT 310 10^3/uL (130-400); RED CELL DISTRIBUTION WIDTH 12.9 % (10.0-14.5); WHITE BLOOD COUNT 5.3 10^3/uL (4.3-11.0)
[2018-10-19 06:44] LABS: MEAN CORPUSCULAR HEMOGLOBIN 29 PG (25-34)
[2018-10-19 06:59] LABS: ALANINE AMINOTRANSFERASE 13 U/L (0-55); ALBUMIN 4.1 GM/DL (3.2-4.5); BILIRUBIN,TOTAL 0.5 MG/DL (0.1-1.0); BUN/CREATININE RATIO 6; CALCIUM 8.7 MG/DL (8.5-10.1); CARBON DIOXIDE 20 MMOL/L (21-32); CHLORIDE 103 MMOL/L (98-107); CREATININE SERUM 0.71 MG/DL (0.60-1.30); GFR ESTIMATED > 60; GLUCOSE 86 MG/DL (70-105); POTASSIUM 3.3 MMOL/L (3.6-5.0); SODIUM 137 MMOL/L (135-145); TOTAL PROTEIN 7.1 GM/DL (6.4-8.2)
[2018-10-19 08:00] VITALS: BP 144/92
[2018-10-19 08:07] LABS: ALKALINE PHOSPHATASE 43 U/L (40-136)
[2018-10-19] MEDS: FAMOTIDINE 20MG/2ML IV (PEPCID) IV SCH (08:39)
--- NOTE | 2018-10-19 08:42 | Short Stay Summary-Hospitalist ---
History of Present Illness HPI/Chief Complaint Pt is a 23yoF who presented to the ER for the third day in a row due to nausea and vomiting after excessive alcohol intake for her 23th birthday. She states she drank " a lot" on Tuesday night and when she woke up didn't feel that bad so drank more on Tuesday. Following that she developed nausea and vomiting prompting her to seek evaluation in the ER. She was given IVF and Zofran and sent home. Despite this it continued and she returned to the ER where she was diagnosed with an ileus and given IVF and DC home. She continued to vomit and could not keep anything down. Upon return to the ER she was found to have 4+ ketones in her urine and decision was made to admit for IVF. Source: patient Exam Limitations: no limitations Date Seen 10/19/18 Time Seen by a Provider: 10:00 Attending Physician Veronica Tang MD PCP No,Local Physician Referring Physician Date of Admission Oct 18, 2018 at 2:35 pm Home Medications & Allergies Home Medications Reviewed patient Home Medication Reconciliation performed by pharmacy medication reconciliations bulk mail technician and/or nursing. Patients Allergies have been reviewed. Allergies Allergies Coded Allergies No Known Drug Allergies (Unverified10/18/18) Past Kialxdo-Bfzokh-Ztzllx Hx Past Med/Social Hx: Reviewed Nursing Past Med/Soc Hx Patient Social History Marrital Status: Alcohol Use: Occasionally Uses Number of Drinks Today: 0 Recreational Drug Use: Yes Drug of Choice: marijuana Smoking Status: Current Everyday Smoker Type Used: Cigarettes 2nd Hand Smoke Exposure: Yes Recent Foreign Travel: No Contact w/other who traveled: Yes Recent Hopitalizations: No Recent Infectious Disease Expo: No Seasonal Allergies Seasonal Allergies: Yes Past Medical History History of Blood Disorders: No Family History Reviewed Nursing Family Hx Cancer (lung), Other Conditions/Hx (gallbladder) Review of Systems Constitutional: No chills, No fever EENTM: No blurred vision, No double vision, No nose congestion, No throat pain Respiratory: No cough, No dyspnea on exertion, No short of breath Cardiovascular: No chest pain, No edema, No palpitations Gastrointestinal: see HPI Genitourinary: No dysuria, No frequency Musculoskeletal: No joint pain, No muscle pain Skin: No lesions, No rash Psychiatric/Neurological: Denies Headache, Denies Numbness, Denies Tingling Physical Exam Physical Exam Vital Signs Vital Signs - First Documented 10/18/18 10:04 Temp 98.9 Pulse 73 Resp 18 B/P (MAP) 139/99 (112) Pulse Ox 99 Capillary Refill : Less Than 3 Seconds Height, Weight, BMI Height: 5'2.00" Weight: 125lbs. oz. 56.030310gz; BMI Method:Stated General Appearance: No Apparent Distress, WD/WN HEENT: PERRL/EOMI, Moist Mucous Membranes; No Scleral Icterus (L), No Scleral Icterus (R) Neck: Non Tender, Supple Respiratory: Lungs Clear, No Respiratory Distress Cardiovascular: Regular Rate, Rhythm, No Murmur Gastrointestinal: Normal Bowel Sounds, Non Tender, Soft Extremity: Normal Capillary Refill, No Calf Tenderness Neurologic/Psychiatric: Alert, Oriented x3, Normal Mood/Affect Skin: Normal Color, Warm/Dry Results Results/Procedures Labs Laboratory Tests 10/19/18 05:40 Patient resulted labs reviewed. Short Stay Diagnosis Discharge Diagnosis-Short Stay Admission Diagnosis Intractable nausea and vomiting Final Discharge Diagnosis Intractable nausea and vomiting Conclusion Plan Intractable nausea and vomiting Continue Zofran and Phenergan Add scopolamine patch Continue IVF and Famotidine If can tolerate diet will DC home Polysubstance abuse Discussed possibility for hyperemesis cannabis Advised to try hot showers for nausea Recommend cessation Diagnosis/Problems Diagnosis/Problems (1) Polysubstance abuse (2) Intractable nausea and vomiting Status: Acute Qualifiers: Qualified Codes: R11.2 - Nausea with vomiting, unspecified Clinical Quality Measures DVT/VTE Risk/Contraindication: Risk Factor Score Per Nursin RFS Level Per Nursing on Admit: 1=Low/No VTE PPX VERONICA TANG MD Oct 19, 2018 8:42 am
[2018-10-19] MEDS: ONDANSETRON 4 MG/2 ML (SDV) Z0FRAN IV PRN (11:54)
[2018-10-19 12:00] VITALS: BP 138/61
[2018-10-19] MEDS ORDERED: SCOPOLAMINE 1.5 MG (TRANSDERM-SCOP) PATCH TD NR (12:45)
[2018-10-19] MEDS ORDERED: ACETAMINOPHEN 500 MG TAB (TYLENOL) PO PRN (15:15)
[2018-10-19 16:00] VITALS: BP 157/84
[2018-10-19 20:00] VITALS: BP 162/96
[2018-10-20 00:45] VITALS: BP 133/91
[2018-10-20] MEDS: ONDANSETRON 4 MG/2 ML (SDV) Z0FRAN IV PRN ×2 (05:30→12:42)
[2018-10-20] MEDS: PROMETHAZINE INJ 25 MG/ML (PHENERGAN) AMP IV PRN (06:20)
[2018-10-20] MEDS: NS IV 1000 ML 1,000 ML IV SCH (06:20)
[2018-10-20 08:00] VITALS: BP 155/93
[2018-10-20] MEDS ORDERED: FAMOTIDINE 20 MG (PEPCID) TABLET ONE (09:09)
[2018-10-20] MEDS: FAMOTIDINE 20MG/2ML IV (PEPCID) IV SCH (09:22)
[2018-10-20] MEDS ORDERED: ONDA4TAB10 PO (13:18)
--- NOTE | 2018-10-20 13:20 | Discharge Inst-Simple/Standard ---
Discharge Inst-Standard Reconcile Patient Problems Problems Reviewed?: Yes Discharge Medications New, Converted or Re-Newed RX: Transmitted to Pharmacy Patient Instructions/Follow Up Plan of Care/Instructions/FU: Please continue to take your medications as written. Please follow up with [facility] to follow up this hospital stay. Activity as Tolerated: Yes Discharge Diet: Regular Diet Return to The Hospital For: Worsening nausea, vomiting, abdominal pain, if you feel you are getting worse. VERONICA RUELAS MD Oct 20, 2018 1:20 pm
--- NOTE | 2018-10-20 13:26 | Progress Note - Hospitalist ---
Subjective HPI/CC On Admission Date Seen by Provider: Oct 20, 2018 Time Seen by Provider: 13:24 Pt is a 23yoF who presented to the ER for the third day in a row due to nausea and vomiting after excessive alcohol intake for her 23th birthday. She states she drank " a lot" on Tuesday night and when she woke up didn't feel that bad so drank more on Tuesday. Following that she developed nausea and vomiting prompting her to seek evaluation in the ER. She was given IVF and Zofran and sent home. Despite this it continued and she returned to the ER where she was diagnosed with an ileus and given IVF and DC home. She continued to vomit and could not keep anything down. Upon return to the ER she was found to have 4+ ketones in her urine and decision was made to admit for IVF. Subjective/Events-last exam Pt unable to discharge yesterday as unable to tolerate food. Now has eaten lunch and is doing well. Requesting DC home. Objective Exam Vital Signs Vital Signs Date Time Temp Pulse Resp B/P (MAP) Pulse Ox O2 Delivery O2 Flow Rate FiO2 10/20/18 08:00 98.4 77 18 155/93 (113) 98 Room Air Capillary Refill : Less Than 3 Seconds General Appearance: No Apparent Distress, WD/WN Cardiovascular: Regular Rate, Rhythm, No Murmur Gastrointestinal: Normal Bowel Sounds, Soft Neurologic/Psychiatric: Alert, Oriented x3 Results/Procedures Lab Patient resulted labs reviewed. Assessment/Plan Assessment and Plan Assess & Plan/Chief Complaint Intractable nausea and vomiting Continue Zofran and Phenergan Send script for Zofran DC home with [facility] follow up Polysubstance abuse Discussed possibility for hyperemesis cannabis Advised to try hot showers for nausea Recommend cessation Diagnosis/Problems Diagnosis/Problems (1) Polysubstance abuse (2) Intractable nausea and vomiting Status: Acute Qualifiers: Vomiting type: unspecified Qualified Codes: R11.2 - Nausea with vomiting, unspecified Clinical Quality Measures DVT/VTE Risk/Contraindication: Risk Factor Score Per Nursin RFS Level Per Nursing on Admit: 1=Low/No VTE PPX VERONICA RUELAS MD Oct 20, 2018 1:26 pm
[2018-10-22] MEDS ORDERED: SCOPOLAMINE PATCH REMOVAL TP SCH (12:45)
== END 2018-10-20 13:21 | disposition home or self-care (01) ==
LOC: EDUNIT# 09:49 → ER 09:50 → UNDOADMOB 14:35 → 4TH 14:35 → UNDODISOB 10-20 13:40
PROVIDERS: ADMIT Family Medicine; ATTEND Family Medicine
DX: R11.2 Nausea with vomiting, unspecified (principal); F10.129 Alcohol abuse with intoxication, unspecified; F17.210 Nicotine dependence, cigarettes, uncomplicated; Z80.1 Family history of malignant neoplasm of trachea, bronchus and lung; Z83.79 Family history of other diseases of the digestive system; Z79.899 Other long term (current) drug therapy
CPT/HCPCS: 36415; 80053; 81000; 83735; 84703; 85025; 86141; 96361; 96374; 96375; G0378

== ENCOUNTER 2018-12-12 02:59 | Emergency (ER) | payer SELFPAY ==
[~2018-12-12] VITALS: Ht 157.4 cm; Wt 56.3 kg
[~2018-12-12 02:59] MED LIST changes: +NAPR-915 PO; +ONDN4T PO; +PANT40TA2 PO
[2018-12-12] MEDS ORDERED: HYOSCYAMINE 0.125 MG (LEVSIN) TAB SL ONE (03:15)
[2018-12-12] MEDS ORDERED: LACTATED RINGERS 1,000 ML IV ONE ×3 (03:15→04:28)
[2018-12-12] MEDS ORDERED: ONDANSETRON 4 MG/2 ML (SDV) Z0FRAN IVP ONE (03:15)
[2018-12-12 03:25] LABS: BASOPHILS % (AUTO) 0 % (0-10); EOSINOPHILS # (AUTO) 0.1 10^3/uL (0.0-0.3); EOSINOPHILS % (AUTO) 1 % (0-10); HEMATOCRIT 36 % (35-52); HEMOGLOBIN 12.2 G/DL (11.5-16.0); LYMPHOCYTES # (AUTO) 1.9 X 10^3 (1.0-4.0); LYMPHOCYTES % (AUTO) 22 % (12-44); MEAN CORPUSCULAR HEMOGLOBIN 29 PG (25-34); MEAN CORPUSCULAR HGB CONC 34 G/DL (32-36); MEAN CORPUSCULAR VOLUME 86 FL (80-99); MONOCYTES # (AUTO) 0.4 X 10^3 (0.0-1.0); MONOCYTES % (AUTO) 4 % (0-12); NEUTROPHILS # (AUTO) 6.1 X 10^3 (1.8-7.8); NEUTROPHILS % (AUTO) 72 % (42-75); PLATELET COUNT 407 10^3/uL (130-400); RED CELL DISTRIBUTION WIDTH 12.8 % (10.0-14.5); WHITE BLOOD COUNT 8.4 10^3/uL (4.3-11.0)
[2018-12-12 03:30] LABS: BACTERIA,URINE NEGATIVE /HPF; BILIRUBIN,URINE NEGATIVE (NEGATIVE); CLARITY,URINE CLEAR; COLOR,URINE YELLOW; GLUCOSE, URINE (UA) NEGATIVE (NEGATIVE); KETONES,URINE NEGATIVE (NEGATIVE); LEUKOCYTE ESTERASE ,URINE NEGATIVE (NEGATIVE); NITRITE,URINE NEGATIVE (NEGATIVE); PH,URINE 8 (5-9); PROTEIN,URINE NEGATIVE (NEGATIVE)
[2018-12-12] MEDS ORDERED: diphenhydrAMINE 50 MG/ML INJ (BENADRYL) IVP ONE (03:30)
[2018-12-12] MEDS ORDERED: SCOPOLAMINE 1.5 MG (TRANSDERM-SCOP) PATCH TD ONE (03:30)
[2018-12-12] MEDS ORDERED: PROCHLORPERAZINE 10 MG/2ML INJ (COMPAZINE) IV ONE ×2 (03:30→04:15)
[2018-12-12 03:33] LABS: AMPHETAMINE SCREEN, URINE NEGATIVE (NEGATIVE); BARBITURATE SCREEN URINE NEGATIVE (NEGATIVE); BENZODIAZEPINES SCREEN URINE NEGATIVE (NEGATIVE); CANNABINOID SCREEN, URINE POSITIVE (NEGATIVE); COCAINE SCREEN URINE NEGATIVE (NEGATIVE); METHADONE STAT NEGATIVE (NEGATIVE); METHAMPHETAMINE SCREEN URINE S NEGATIVE (NEGATIVE); OPIATE SCREEN URINE NEGATIVE (NEGATIVE); OXYCODONE STAT NEGATIVE (NEGATIVE); PROPOXYPHENE STAT NEGATIVE (NEGATIVE); TRICYCLIC ANTIDEPRESSANTS SCRE NEGATIVE (NEGATIVE)
--- NOTE | 2018-12-12 03:40 | ED GI ---
General Chief Complaint: Abdominal/GI Problems Stated Complaint: VOMITING,CHEST ON FIRE,HURTS TO BREATH Nursing Triage Note: Patient ambulatory to ER room 7 with spouse with complaint of vomiting. Patient is PEREZ x4 and states the nausea and vomiting began several hours ago. She has taken Zofran PO at home with no relief. Patient has a history of vomiting and states she has been in this ER and admitted inpatient multiple times for vomiting. Patient did have a biopsy on her stomach last week but has not found out the results yet. Patient is actively vomiting in waiting room. Sepsis Screen: No Definite Risk Source of Information: Patient, Other (MALE S.O. TIRES TO DO ALL TALKING ) History of Present Illness Date Seen by Provider: Dec 12, 2018 Time Seen by Provider: 03:09 Initial Comments PT ARRIVES VIA POV WITH MALE S.O. PT C/O NAUSEA AND VOMITING FOR THE LAST 1 1/2 HOURS NO DIARRHEA--HAD BM AFTER ARRIVAL TO ER NO FEVER NO PROBLEMS URINATING AND VOIDING A NORMAL AMOUNT LMP--2 WEEKS AGO, NORMAL. MALE S.O. WITH VASECTOMY STATES HER STOMACH AND CHEST ARE HURTING--STATES IT ALWAYS STARTS WITH PAINS IN HER CHEST AND IN HER ABDOMEN AND THEN SHE STARTS THROWING UP THIS IS ONGOING PROBLEM SINCE SEPTEMBER PT HAS BEEN TO THIS ER MULTIPLE TIMES SINCE THE END OF SEPTEMBER FOR THIS COMPLAINT PT HAS BEEN ADMITTED TWICE SINCE THE END OF SEPTEMBER, LAST TIME WAS 11/29-12/03. HAD EGD WITH BIOPSIES HAS NOT ATTEMPTED TO FOLLOW UP WITH ANYONE IN OFFICE AFTER ANY OF THESE ER VISITS PT STATES SHE HAS BEEN FINE ALL DAY STATES SHE HAS EATEN "LOTS" OF FOOD TODAY-HAD "ALOT" OF MARKS'S PIE AND MACANESE RICE TONIGHT FOR DINNER. MALE S.O. ATE SAME AND HE IS NOT SICK NO KNOWN SICK CONTACTS OR SUSPICIOUS FOODS PT DENIES ANY RECENT ALCOHOL USE PT OCCASIONALLY SMOKES CIGARETTES PT SMOKES MARIJUANA ON A DAILY BASIS PT STATES SHE HAS HAD BULIMIA AND SHE USES MARIJUANA "TO HELP HER APPETITE" PT AND MALE S.O. REFUSE TO BELIEVE THAT MARIJUANA MIGHT BE CONTRIBUTING TO HER SYMPTOMS AT ALL. MALE S.O STATES "ATIVAN IS THE ONLY THING THAT HELPS" PT HAS ZOFRAN AND PEPCID AT HOME--STATES SHE TRIED TO TAKE BOTH OF THEM TONIGHT, BUT THREW THEM UP. ON REVIEW OF OLD RECORDS, PT WAS GIVEN RX'S FOR ZOFRAN AND PANTOPRAZOLE AT DISMISSAL ON 12/03/18. PCP: YOHANNES. Allergies and Home Medications Allergies Coded Allergies: No Known Drug Allergies (Unverified , 10/18/18) Home Medications Hyoscyamine Sulfate 0.125 Mg Tab.subl, 1-2 TAB SL Q4H Prescribed by: NATHALIA WIGGINS on 12/12/18 0609 Naproxen 500 Mg Tablet, 500 MG PO Q12H PRN for PAIN-MILD, (Reported) FILLED #28 11-24-18 Ondansetron HCl 4 Mg Tab, 4 MG PO Q4H Prescribed by: VERONICA RUELAS on 12/03/18 1004 Pantoprazole Sodium 40 Mg Tablet.dr, 40 MG PO DAILY Prescribed by: VERONICA RUELAS on 12/03/18 1004 Prochlorperazine Maleate 25 Mg Supp.rect, 25 MG RC Q6H Prescribed by: NATHALIA WIGGINS on 12/12/18 0609 Patient Home Medication List Home Medication List Reviewed: Yes Review of Systems Review of Systems Constitutional: no symptoms reported; No dizziness, No fever, No malaise, No weakness EENTM: No Symptoms Reported, Other (DENTAL EXTRACTION 2 WEEKS AGO. NO PROBLEMS, IS NOT TAKING ANY MEDICATION FOR THAT. ) Respiratory: No Symptoms Reported Cardiovascular: See HPI, Chest Pain; Denies Edema, Denies Lightheadedness, Denies Palpitations, Denies Syncope Gastrointestinal: See HPI, Abdominal Pain; Denies Constipated, Denies Diarrhea; Nausea, Vomiting Genitourinary: No Symptoms Reported Musculoskeletal: no symptoms reported; No back pain Skin: no symptoms reported Psychiatric/Neurological: Anxiety Endocrine: No Symptoms Reported Hematologic/Lymphatic: No Symptoms Reported Past Cvaljwx-Iqials-Fbejlk Hx Patient Social History Alcohol Use: Occasionally Uses Recreational Drug Use: Yes (THC DAILY; ALSO TESTED + FOR COCAINE 09/2018) Drug of Choice: THC DAILY, TESTED + FOR COCAINE 09/2018 Smoking Status: Current Someday Smoker Type Used: Cigarettes 2nd Hand Smoke Exposure: Yes Recent Foreign Travel: No Contact w/Someone Who Travel: No Recent Infectious Disease Expo: No Immunizations Up To Date PED Vaccines UTD: Yes Seasonal Allergies Seasonal Allergies: Yes Past Medical History Surgeries: Yes (EGD/BIOPSY) Respiratory: No Cardiac: No Neurological: No : No Reproductive Disorders: No Female Reproductive Disorders: Denies Genitourinary: No Gastrointestinal: No (ONGOING NAUSEA/VOMITING/ABDOMINAL PAIN) Musculoskeletal: No Endocrine: No HEENT: No Loss of Vision: Denies Cancer: No Psychosocial: No Integumentary: No Blood Disorders: No Family Medical History Patient reports no known family medical history. Cancer, Other Conditions/Hx Physical Exam Vital Signs Vital Signs - First Documented 12/12/18 03:04 Temp 36.6 Pulse 99 Resp 18 B/P (MAP) 143/113 (123) Pulse Ox 99 O2 Delivery Room Air Capillary Refill : Less Than 3 Seconds Height/Weight/BMI Height: 5'2.00" Weight: 125lbs. oz. 56.825176rl; 22.00 BMI Method:Stated General Appearance: thin, other (DRAMATIC, WITH HARSH / LOUD/FORCED VOMITING ON ARRIVAL. THIS STOPS WHEN DISTRACTED. . PT IS WEARING A WIG AND DISPOSABLE DIAPERS. 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 nml as tested, no motor/sensory deficits, alert, oriented x 3 Skin: normal color (PT IS BLACK), warm/dry Progress/Results/Core Measures Results/Orders Lab Results Laboratory Tests Test 12/12/18 03:10 12/12/18 03:14 Range/Units White Blood Count 8.4 4.3-11.0 10^3/uL Red Blood Count 4.15 L 4.35-5.85 10^6/uL Hemoglobin 12.2 11.5-16.0 G/DL Hematocrit 36 35-52 % Mean Corpuscular Volume 86 80-99 FL Mean Corpuscular Hemoglobin 29 25-34 PG Mean Corpuscular Hemoglobin Concent 34 32-36 G/DL Red Cell Distribution Width 12.8 10.0-14.5 % Platelet Count 407 H 130-400 10^3/uL Mean Platelet Volume 10.0 7.4-10.4 FL Neutrophils (%) (Auto) 72 42-75 % Lymphocytes (%) (Auto) 22 12-44 % Monocytes (%) (Auto) 4 0-12 % Eosinophils (%) (Auto) 1 0-10 % Basophils (%) (Auto) 0 0-10 % Neutrophils # (Auto) 6.1 1.8-7.8 X 10^3 Lymphocytes # (Auto) 1.9 1.0-4.0 X 10^3 Monocytes # (Auto) 0.4 0.0-1.0 X 10^3 Eosinophils # (Auto) 0.1 0.0-0.3 10^3/uL Basophils # (Auto) 0.0 0.0-0.1 10^3/uL Sodium Level 139 135-145 MMOL/L Potassium Level 3.7 3.6-5.0 MMOL/L Chloride Level 103 98-107 MMOL/L Carbon Dioxide Level 23 21-32 MMOL/L Anion Gap 13 5-14 MMOL/L Blood Urea Nitrogen 4 L 7-18 MG/DL Creatinine 0.78 0.60-1.30 MG/DL Estimat Glomerular Filtration Rate > 60 BUN/Creatinine Ratio 5 Glucose Level 122 H 70-105 MG/DL Calcium Level 9.6 8.5-10.1 MG/DL Corrected Calcium 9.4 8.5-10.1 MG/DL Magnesium Level 1.9 1.6-2.4 MG/DL Total Bilirubin 0.2 0.1-1.0 MG/DL Aspartate Amino Transf (AST/SGOT) 24 5-34 U/L Alanine Aminotransferase (ALT/SGPT) 22 0-55 U/L Alkaline Phosphatase 55 40-136 U/L Total Protein 7.7 6.4-8.2 GM/DL Albumin 4.3 3.2-4.5 GM/DL Amylase Level 81 25-125 U/L Lipase 27 8-78 U/L Acetaminophen Level < 10 L 10-30 UG/ML Serum Alcohol < 10 <10 MG/DL Urine Color YELLOW Urine Clarity CLEAR Urine pH 8 5-9 Urine Specific [place] 1.010 L 1.016-1.022 Urine Protein NEGATIVE NEGATIVE Urine Glucose (UA) NEGATIVE NEGATIVE Urine Ketones NEGATIVE NEGATIVE Urine Nitrite NEGATIVE NEGATIVE Urine Bilirubin NEGATIVE NEGATIVE Urine Urobilinogen NORMAL NORMAL MG/DL Urine Leukocyte Esterase NEGATIVE NEGATIVE Urine RBC (Auto) NEGATIVE NEGATIVE Urine RBC NONE /HPF Urine WBC NONE /HPF Urine Squamous Epithelial Cells 10-25 H /HPF Urine Crystals NONE /LPF Urine Bacteria NEGATIVE /HPF Urine Casts NONE /LPF Urine Mucus SMALL H /LPF Urine Culture Indicated NO Urine Test NEGATIVE NEGATIVE Urine Opiates Screen NEGATIVE NEGATIVE Urine Oxycodone Screen NEGATIVE NEGATIVE Urine Methadone Screen NEGATIVE NEGATIVE Urine Propoxyphene Screen NEGATIVE NEGATIVE Urine Barbiturates Screen NEGATIVE NEGATIVE Ur Tricyclic Antidepressants Screen NEGATIVE NEGATIVE Urine Phencyclidine Screen NEGATIVE NEGATIVE Urine Amphetamines Screen NEGATIVE NEGATIVE Urine Methamphetamines Screen NEGATIVE NEGATIVE Urine Benzodiazepines Screen NEGATIVE NEGATIVE Urine Cocaine Screen NEGATIVE NEGATIVE Urine Cannabinoids Screen POSITIVE H NEGATIVE My Orders Orders - NATHALIA WIGGINS DO Ed Iv/Invasive Line Start (12/12/18 03:15) Acetaminophen (12/12/18 03:15) Alcohol (12/12/18 03:15) Amylase (12/12/18 03:15) Cbc With Automated Diff (12/12/18 03:15) Comprehensive Metabolic Panel (12/12/18 03:15) Drug Screen Stat (Urine) (12/12/18 03:15) Lipase (12/12/18 03:15) Magnesium (12/12/18 03:15) Ua Culture If Indicated (12/12/18 03:15) Ed Iv/Invasive Line Start (12/12/18 03:15) Lactated Ringers (Lr 1000 Ml Iv Solution (12/12/18 03:15) Ondansetron Injection (Zofran Injectio (12/12/18 03:15) Hyoscyamine Sl Tablet (Levsin Sl Tablet) (12/12/18 03:15) Hcg,Qualitative Urine (12/12/18 03:22) Scopolamine Patch (Transderm-Scop Patch) (12/12/18 03:30) Prochlorperazine Injection (Compazine In (12/12/18 03:30) Diphenhydramine Injection (Benadryl Inje (12/12/18 03:30) Acute Abd Series (12/12/18 03:22) Prochlorperazine Injection (Compazine In (12/12/18 04:15) Haloperidol Injection (Haldol Injectio (12/12/18 04:15) Ed Iv/Invasive Line Start (12/12/18 04:13) Lactated Ringers (Lr 1000 Ml Iv Solution (12/12/18 04:13) Ed Iv/Invasive Line Start (12/12/18 04:28) Lactated Ringers (Lr 1000 Ml Iv Solution (12/12/18 04:28) Pantoprazole Injection (Protonix Injecti (12/12/18 04:30) Pantoprazole Injection (Protonix Injecti (12/12/18 04:31) Medications Given in ED Current Medications Medications Dose Ordered Sig/Minerva Route Start Time Stop Time Status Last Admin Dose Admin Diphenhydramine HCl 50 mg ONCE ONCE IVP 12/12/18 03:30 12/12/18 03:31 DC 12/12/18 03:40 50 MG Haloperidol Lactate 5 mg ONCE ONCE IV 12/12/18 04:15 12/12/18 04:22 DC 12/12/18 04:30 5 MG Hyoscyamine Sulfate 0.25 mg ONCE ONCE SL 12/12/18 03:15 12/12/18 03:19 DC 12/12/18 03:42 0.25 MG Lactated Ringer's 1,000 ml @ 0 mls/hr Q0M ONCE IV 12/12/18 03:15 12/12/18 03:19 DC 12/12/18 03:38 1,000 MLS/HR Lactated Ringer's 1,000 ml @ 0 mls/hr Q0M ONCE IV 12/12/18 04:13 12/12/18 04:22 DC 12/12/18 04:30 1,000 MLS/HR Lactated Ringer's 1,000 ml @ 0 mls/hr Q0M ONCE IV 12/12/18 04:28 12/12/18 05:43 DC 12/12/18 05:08 1,000 MLS/HR Ondansetron HCl 8 mg ONCE ONCE IVP 12/12/18 03:15 12/12/18 03:19 DC 12/12/18 03:35 8 MG Pantoprazole 40 mg ONCE ONCE IV 12/12/18 04:30 12/12/18 04:31 DC 12/12/18 04:34 40 MG Prochlorperazine Edisylate 10 mg ONCE ONCE IV 12/12/18 03:30 12/12/18 03:31 DC 12/12/18 03:40 10 MG Prochlorperazine Edisylate 10 mg ONCE ONCE IV 12/12/18 04:15 12/12/18 04:22 DC 12/12/18 04:24 10 MG Vital Signs/I&O 12/12/18 03:04 Temp 36.6 Pulse 99 Resp 18 B/P (MAP) 143/113 (123) Pulse Ox 99 O2 Delivery Room Air Blood Pressure Mean: 123 Progress Progress Note : Progress Note REFUSES SCOPOLAMINE PATCH--STATES "IT MAKES HER NAUSEA AND VOMITING WORSE" MALE S.O. NOT WANTING HER TO TAKE THE OTHER MEDICATIONS, AND IS ONLY WANTING ATIVAN. WAS EXPLAINED TO PT AND S.O. THAT ATIVAN WAS NOT THE FIRST DRUG OF CHOICE FOR NAUSEA AND VOMITING. PT EVENTUALLY AGREED TO OTHER MEDICATIONS. MALE S.O. DEMANDING THAT SHE BE ADMITTED, STATING "THEY ALWAYS ADMIT HER EVERY TIME AND THEY ALWAYS GIVE HER ATIVAN" --PT HAS ONLY BEEN ADMITTED TWICE, NOT EVERY TIME SHE HAS COME HERE. SHE DOES NOT "ALWAYS GET ATIVAN EVERY TIME" 0420--PT RETCHING WITH SMALL AMOUNTS CLEAR EMESIS. THIS STOPS WHEN I ENTER ROOM, AND PT IS IMMEDIATELY TALKING NORMALLY, AND MOVING WITHOUT DIFFICULTY. STATES HER PAIN IN HER CHEST AND ABDOMEN IS BETTER, BUT NOT GONE, NAUSEA IS "NOT BETTER" . PT WILLING TO TRY OTHER MEDICATIONS. GIVEN ADDITIONAL FLUIDS AND MEDICATIONS, INCLUDING HALDOL. PT RESTED QUIETLY FOR REMAINDER OF ER STAY. NO FURTHER VOMITING. PT TOLERATING WATER PRIOR TO DISMISSAL. PT STATES SHE FEELS MUCH BETTER. DISCUSSED THE CONNECTION BETWEEN MARIJUANA AND GI/VOMITING COMPLAINTS. Diagnostic Imaging Comments ABDOMEN XRAYS--NO ACUTE PROCESS, PENDING RADIOLOGIST REVIEW Reviewed: Reviewed by Me Departure Impression Primary Impression: Intractable nausea and vomiting Additional Impression: Cannabinoid hyperemesis syndrome Disposition: 01 HOME, SELF-CARE Condition: Improved Departure-Patient Inst. Referrals: NO,LOCAL PHYSICIAN (PCP/Family) Primary Care Physician Patient Instructions: Marijuana Use and Addiction (DC), Nausea and Vomiting, Adult (DC) Add. Discharge Instructions: HOME, REST SIPS OF CLEAR LIQUIDS--WATER, BROTH, JELLO, GATORADE WHEN YOUR NAUSEA IS GONE, ADD BRATS DIET TO CLEAR LIQUIDS--BANANAS, RICE, APPLESAUCE, TOAST, SALTINES NO MARIJUANA HOT SHOWERS CONTINUE PANTOPRAZOLE DAILY AND ZOFRAN NEEDED FOLLOW UP WITH YOUR DR THIS WEEK FOR FURTHER CARE All discharge instructions reviewed with patient and/or family. Voiced understanding. Scripts Prochlorperazine Maleate (Compazine) 25 Mg Supp.rect 25 MG RC Q6H, #10 SUPP.RECT Prov: NATHALIA WIGGINS DO 12/12/18 Hyoscyamine Sulfate (Levsin-Sl) 0.125 Mg Tab.subl 1-2 TAB SL Q4H for Abdominal Pain, #15 TAB Prov: NATHALIA WIGGNIS DO 12/12/18 NATHALIA WIGGINS DO Dec 12, 2018 03:40
[2018-12-12 03:42] LABS: ALANINE AMINOTRANSFERASE 22 U/L (0-55); ALBUMIN 4.3 GM/DL (3.2-4.5); ALKALINE PHOSPHATASE 55 U/L (40-136); AMYLASE 81 U/L (25-125); BILIRUBIN,TOTAL 0.2 MG/DL (0.1-1.0); BUN/CREATININE RATIO 5; CALCIUM 9.6 MG/DL (8.5-10.1); CARBON DIOXIDE 23 MMOL/L (21-32); CHLORIDE 103 MMOL/L (98-107); CREATININE SERUM 0.78 MG/DL (0.60-1.30); GFR ESTIMATED > 60; GLUCOSE 122 MG/DL (70-105); LIPASE 27 U/L (8-78); MAGNESIUM 1.9 MG/DL (1.6-2.4); POTASSIUM 3.7 MMOL/L (3.6-5.0); SODIUM 139 MMOL/L (135-145); TOTAL PROTEIN 7.7 GM/DL (6.4-8.2)
[2018-12-12 03:48] LABS: ACETAMINOPHEN < 10 UG/ML (10-30)
[2018-12-12] MEDS ORDERED: HALOPERIDOL 5 MG/ML (HALDOL) AMP IV ONE (04:15)
[2018-12-12] MEDS ORDERED: PANTOPRAZOLE 40 MG (PROTONIX) VIAL IV ONE (04:30)
[2018-12-12] MEDS ORDERED: PANTOPRAZOLE 40 MG (PROTONIX) VIAL ONE (04:31)
--- NOTE | 2018-12-12 04:40 | NUR ---
Patient sleeping. No signs of distress present.
--- NOTE | 2018-12-12 05:44 | NUR ---
Patient given ice chips to eat.
[2018-12-12] MEDS ORDERED: HYOS0.1283 SL (06:09)
[2018-12-12] MEDS ORDERED: PROC25SU27 RC (06:09)
[2018-12-12 06:19] VITALS: BP 107/83
--- NOTE | 2018-12-12 07:45 | Diagnostic Imaging Report ---
EXAMINATION: Abdominal radiographs, acute series. DATE: December 12, 2018. CLINICAL INDICATION: 23-year-old female, abdominal pain, nausea, vomiting. COMPARISON: CT abdomen pelvis November 30, 2018. COMMENTS: Heart size and mediastinal contours are unremarkable. There is no identified pneumothorax. There is no large pleural effusion. There is no identified focal airspace consolidation. There is no free intraperitoneal air. There are gas filled segments of large bowel which are not abnormally distended. There are no abnormal gas filled segments of small bowel. There is a moderate volume colonic stool. There is no identified abnormal radiodensity overlying the kidneys or expected positions of the ureters. IMPRESSION: 1. No acute abdominal radiographic abnormality. 2. Moderate volume colonic stool. Dictated by: Dictated on workstation # [id number]
== END 2018-12-12 06:19 | disposition home or self-care (01) ==
LOC: EDUNIT# 02:59 → ER 03:01
DX: R11.2 Nausea with vomiting, unspecified (principal); F12.288 Cannabis dependence with other cannabis-induced disorder; F17.210 Nicotine dependence, cigarettes, uncomplicated
CPT/HCPCS: 36415; 74022; 80053; 80306; 80320; 80329; 81000; 82150; 83690; 83735; 84703; 85025

== ENCOUNTER 2019-01-27 16:34 | Emergency (ER) | payer SELFPAY ==
[~2019-01-27] VITALS: Ht 157.4 cm; Wt 53.4 kg
[~2019-01-27 16:34] MED LIST changes: +HYOS0.1283 SL; +PROC25SU27 RC
[2019-01-27] MEDS ORDERED: ONDANSETRON 4 MG/2 ML (SDV) Z0FRAN IVP ONE (17:00)
[2019-01-27] MEDS ORDERED: ONDA8TAB13 PO (17:00)
--- NOTE | 2019-01-27 17:00 | ED GI ---
General Chief Complaint: Abdominal/GI Problems Stated Complaint: VOMITING Source of Information: Patient Exam Limitations: No Limitations History of Present Illness Date Seen by Provider: Jan 27, 2019 Time Seen by Provider: 16:57 Initial Comments To ER with c/o nausea vomiting abdominal pain since drinkint ETOH last night. History of recurrent nausea and vomiting and abd pain, smokes marijuana regularly and states that she's been told that the cause, however boyfriend at the bedside states that couldnt be the cause of this. Hot shower water hitting her abdomen helps with nausea and pain. Timing/Duration: 1-2 Days Severity/Quality: Moderate Location: Generalized Abdomen Radiation: No Radiation Activities at Onset: None Associated Symptoms: Nausea/Vomiting Allergies and Home Medications Allergies Coded Allergies: No Known Drug Allergies (Unverified , 10/18/18) Home Medications Hyoscyamine Sulfate 0.125 Mg Tab.subl, 1-2 TAB SL Q4H Prescribed by: NATHALIA WIGGINS on 12/12/18 0609 Naproxen 500 Mg Tablet, 500 MG PO Q12H PRN for PAIN-MILD, (Reported) FILLED #28 11-24-18 Ondansetron 8 Mg Tab.rapdis, 8 MG PO Q6H PRN for NAUSEA/VOMITING Prescribed by: KALYANI RUIZ on 01/27/19 1700 Ondansetron HCl 4 Mg Tab, 4 MG PO Q4H Prescribed by: VERONICA RUELAS on 12/03/18 1004 Pantoprazole Sodium 40 Mg Tablet.dr, 40 MG PO DAILY Prescribed by: VERONICA RUELAS on 12/03/18 1004 Prochlorperazine Maleate 25 Mg Supp.rect, 25 MG RC Q6H Prescribed by: NATHALIA WIGGINS on 12/12/18 0609 Patient Home Medication List Home Medication List Reviewed: Yes Review of Systems Review of Systems Constitutional: see HPI EENTM: No Symptoms Reported Respiratory: No Symptoms Reported Cardiovascular: No Symptoms Reported Gastrointestinal: See HPI, Abdominal Pain, Nausea, Vomiting Genitourinary: No Symptoms Reported Musculoskeletal: no symptoms reported Skin: no symptoms reported Psychiatric/Neurological: No Symptoms Reported Endocrine: No Symptoms Reported Hematologic/Lymphatic: No Symptoms Reported Past Disxivc-Ttayrp-Tozbpz Hx Patient Social History Drug of Choice: THC DAILY, TESTED + FOR COCAINE 09/2018 Type Used: Cigarettes 2nd Hand Smoke Exposure: Yes Recent Foreign Travel: No Contact w/Someone Who Travel: No Immunizations Up To Date PED Vaccines UTD: Yes Seasonal Allergies Seasonal Allergies: Yes Past Medical History Surgeries: Yes (EGD/BIOPSY) Respiratory: No Cardiac: No Neurological: No Reproductive Disorders: No Female Reproductive Disorders: Denies Genitourinary: No Gastrointestinal: No (ONGOING NAUSEA/VOMITING/ABDOMINAL PAIN) Musculoskeletal: No Endocrine: No HEENT: No Loss of Vision: Denies Cancer: No Psychosocial: No Integumentary: No Blood Disorders: No Family Medical History Patient reports no known family medical history. Cancer, Other Conditions/Hx Physical Exam Vital Signs Vital Signs - First Documented 01/27/19 16:50 Temp 36.0 Pulse 78 Resp 20 B/P (MAP) 143/102 (116) Pulse Ox 99 O2 Delivery Room Air Capillary Refill : Height/Weight/BMI Height: 5'2.00" Weight: 125lbs. oz. 56.542457vo; 22.00 BMI Method:Stated General Appearance: WD/WN, no apparent distress HEENT: PERRL/EOMI, normal ENT inspection Respiratory: no respiratory distress, no accessory muscle use Cardiovascular: regular rate, rhythm, no murmur Gastrointestinal: normal bowel sounds, soft, tenderness Extremities: normal range of motion Neurologic/Psychiatric: alert, normal mood/affect, oriented x 3 Skin: normal color, warm/dry Progress/Results/Core Measures Results/Orders Lab Results Laboratory Tests Test 01/27/19 16:54 01/27/19 16:58 Range/Units Urine Color YELLOW Urine Clarity CLEAR Urine pH 8.5 5-9 Urine Specific [place] 1.020 1.016-1.022 Urine Protein 1+ H NEGATIVE Urine Glucose (UA) NEGATIVE NEGATIVE Urine Ketones NEGATIVE NEGATIVE Urine Nitrite NEGATIVE NEGATIVE Urine Bilirubin NEGATIVE NEGATIVE Urine Urobilinogen 0.2 < = 1.0 MG/DL Urine Leukocyte Esterase NEGATIVE NEGATIVE Urine RBC (Auto) NEGATIVE NEGATIVE Urine RBC RARE /HPF Urine WBC 0-2 /HPF Urine Squamous Epithelial Cells 10-25 H /HPF Urine Crystals NONE /LPF Urine Bacteria MODERATE H /HPF Urine Casts NONE /LPF Urine Mucus MODERATE H /LPF Urine Culture Indicated YES White Blood Count 5.2 4.3-11.0 10^3/uL Red Blood Count 4.60 4.35-5.85 10^6/uL Hemoglobin 13.1 11.5-16.0 G/DL Hematocrit 38 35-52 % Mean Corpuscular Volume 83 80-99 FL Mean Corpuscular Hemoglobin 29 25-34 PG Mean Corpuscular Hemoglobin Concent 34 32-36 G/DL Red Cell Distribution Width 13.2 10.0-14.5 % Platelet Count 345 130-400 10^3/uL Mean Platelet Volume 9.8 7.4-10.4 FL Neutrophils (%) (Auto) 56 42-75 % Lymphocytes (%) (Auto) 35 12-44 % Monocytes (%) (Auto) 7 0-12 % Eosinophils (%) (Auto) 2 0-10 % Basophils (%) (Auto) 1 0-10 % Neutrophils # (Auto) 2.9 1.8-7.8 X 10^3 Lymphocytes # (Auto) 1.8 1.0-4.0 X 10^3 Monocytes # (Auto) 0.4 0.0-1.0 X 10^3 Eosinophils # (Auto) 0.1 0.0-0.3 10^3/uL Basophils # (Auto) 0.1 0.0-0.1 10^3/uL Sodium Level 141 135-145 MMOL/L Potassium Level 3.8 3.6-5.0 MMOL/L Chloride Level 108 H 98-107 MMOL/L Carbon Dioxide Level 21 21-32 MMOL/L Anion Gap 12 5-14 MMOL/L Blood Urea Nitrogen 7 7-18 MG/DL Creatinine 0.77 0.60-1.30 MG/DL Estimat Glomerular Filtration Rate > 60 BUN/Creatinine Ratio 9 Glucose Level 105 70-105 MG/DL Calcium Level 9.5 8.5-10.1 MG/DL Corrected Calcium 8.5-10.1 MG/DL Total Bilirubin 0.7 0.1-1.0 MG/DL Aspartate Amino Transf (AST/SGOT) 21 5-34 U/L Alanine Aminotransferase (ALT/SGPT) 15 0-55 U/L Alkaline Phosphatase 48 40-136 U/L Total Protein 8.3 H 6.4-8.2 GM/DL Albumin 5.0 H 3.2-4.5 GM/DL Lipase 12 8-78 U/L Serum Test, Qualitative NEGATIVE NEGATIVE My Orders Orders - KALYANI RUIZ DIRECTOR OF FINANCIAL PLANNING Cbc With Automated Diff (01/27/19 16:55) Comprehensive Metabolic Panel (01/27/19 16:55) Lipase (01/27/19 16:55) Ua Culture If Indicated (01/27/19 16:55) Hcg,Qualitative Serum (01/27/19 16:55) Ed Iv/Invasive Line Start (01/27/19 16:55) Ns Iv 1000 Ml (Sodium Chloride 0.9%) (01/27/19 17:00) Ondansetron Injection (Zofran Injectio (01/27/19 17:00) Diphenhydramine Injection (Benadryl Inje (01/27/19 17:15) Diphenhydramine Injection (Benadryl Inje (01/27/19 17:02) Urine Culture (01/27/19 16:54) Medications Given in ED Current Medications Medications Dose Ordered Sig/Minerva Route Start Time Stop Time Status Last Admin Dose Admin Diphenhydramine HCl 25 mg ONCE ONCE IVP 01/27/19 17:15 01/27/19 17:16 DC 01/27/19 17:07 25 MG Ondansetron HCl 8 mg ONCE ONCE IVP 01/27/19 17:00 01/27/19 17:01 DC 01/27/19 17:03 8 MG Vital Signs/I&O 01/27/19 16:50 Temp 36.0 Pulse 78 Resp 20 B/P (MAP) 143/102 (116) Pulse Ox 99 O2 Delivery Room Air Departure Impression Primary Impression: Cannabinoid hyperemesis syndrome Disposition: 01 HOME, SELF-CARE Condition: Stable Departure-Patient Inst. Decision time for Depature: 16:59 Referrals: NO,LOCAL PHYSICIAN (PCP/Family) Primary Care Physician Patient Instructions: No Instuctions Given Add. Discharge Instructions: 1. Reduce your marijuana use by half for 1 full month and see if this recurrent nausea and vomiting resolves, it likely will. Follow up with your regular doctor next week 2. Use over the counter capsaicin cream--rub this on the abdomen at the first onset of nausea/abdominal pain next time if this recurs. All discharge instructions reviewed with patient and/or family. Voiced understanding. Scripts Ondansetron (Ondansetron Odt) 8 Mg Tab.rapdis 8 MG PO Q6H PRN for NAUSEA/VOMITING, #20 TAB Prov: KALYANI RUIZ APRN 01/27/19 KALYANI RUIZ APRN Jan 27, 2019 17:00 POS
[2019-01-27] MEDS ORDERED: diphenhydrAMINE 50 MG/ML INJ (BENADRYL) ONE (17:02)
[2019-01-27] MEDS: NS IV 1000 ML 1,000 ML IV SCH ×2 (17:03→18:03)
[2019-01-27 17:09] LABS: BILIRUBIN,URINE NEGATIVE (NEGATIVE); CLARITY,URINE CLEAR; COLOR,URINE YELLOW; GLUCOSE, URINE (UA) NEGATIVE (NEGATIVE); KETONES,URINE NEGATIVE (NEGATIVE); LEUKOCYTE ESTERASE ,URINE NEGATIVE (NEGATIVE); NITRITE,URINE NEGATIVE (NEGATIVE); PH,URINE 8.5 (5-9); PROTEIN,URINE 1+ (NEGATIVE)
[2019-01-27 17:10] LABS: BASOPHILS # (AUTO) 0.1 10^3/uL (0.0-0.1); BASOPHILS % (AUTO) 1 % (0-10); EOSINOPHILS # (AUTO) 0.1 10^3/uL (0.0-0.3); EOSINOPHILS % (AUTO) 2 % (0-10); HEMATOCRIT 38 % (35-52); HEMOGLOBIN 13.1 G/DL (11.5-16.0); LYMPHOCYTES # (AUTO) 1.8 X 10^3 (1.0-4.0); LYMPHOCYTES % (AUTO) 35 % (12-44); MEAN CORPUSCULAR HEMOGLOBIN 29 PG (25-34); MEAN CORPUSCULAR HGB CONC 34 G/DL (32-36); MEAN CORPUSCULAR VOLUME 83 FL (80-99); MEAN PLATELET VOLUME 9.8 FL (7.4-10.4); MONOCYTES # (AUTO) 0.4 X 10^3 (0.0-1.0); MONOCYTES % (AUTO) 7 % (0-12); NEUTROPHILS # (AUTO) 2.9 X 10^3 (1.8-7.8); NEUTROPHILS % (AUTO) 56 % (42-75); PLATELET COUNT 345 10^3/uL (130-400); RED CELL DISTRIBUTION WIDTH 13.2 % (10.0-14.5); WHITE BLOOD COUNT 5.2 10^3/uL (4.3-11.0)
[2019-01-27] MEDS ORDERED: diphenhydrAMINE 50 MG/ML INJ (BENADRYL) IVP ONE (17:15)
[2019-01-27 17:17] LABS: BACTERIA,URINE MODERATE /HPF; RBC,URINE RARE /HPF; WBC,URINE 0-2 /HPF
[2019-01-27 17:29] LABS: ALANINE AMINOTRANSFERASE 15 U/L (0-55); ALKALINE PHOSPHATASE 48 U/L (40-136); BILIRUBIN,TOTAL 0.7 MG/DL (0.1-1.0); BUN/CREATININE RATIO 9; CALCIUM 9.5 MG/DL (8.5-10.1); CARBON DIOXIDE 21 MMOL/L (21-32); CHLORIDE 108 MMOL/L (98-107); CREATININE SERUM 0.77 MG/DL (0.60-1.30); GFR ESTIMATED > 60; GLUCOSE 105 MG/DL (70-105); LIPASE 12 U/L (8-78); POTASSIUM 3.8 MMOL/L (3.6-5.0); SODIUM 141 MMOL/L (135-145); TOTAL PROTEIN 8.3 GM/DL (6.4-8.2)
[2019-01-27] MEDS ORDERED: NS (IVPB) 250 ML IV ONE (17:45)
[2019-01-27] MEDS ORDERED: HALOPERIDOL 5 MG/ML (HALDOL) AMP IV ONE (17:45)
[2019-01-27] MEDS ORDERED: PROCHLORPERAZINE 10 MG/2ML INJ (COMPAZINE) IV ONE (18:00)
[2019-01-27] MEDS ORDERED: NS IV 1000 ML 1,000 ML IV SCH (18:15)
[2019-01-27 18:43] VITALS: BP 135/80
[2019-01-27 18:44] LABS: AMPHETAMINE SCREEN, URINE NEGATIVE (NEGATIVE); BARBITURATE SCREEN URINE NEGATIVE (NEGATIVE); BENZODIAZEPINES SCREEN URINE NEGATIVE (NEGATIVE); CANNABINOID SCREEN, URINE POSITIVE (NEGATIVE); COCAINE SCREEN URINE POSITIVE (NEGATIVE); METHADONE STAT NEGATIVE (NEGATIVE); METHAMPHETAMINE SCREEN URINE S NEGATIVE (NEGATIVE); OPIATE SCREEN URINE NEGATIVE (NEGATIVE); OXYCODONE STAT POSITIVE (NEGATIVE); PROPOXYPHENE STAT NEGATIVE (NEGATIVE); TRICYCLIC ANTIDEPRESSANTS SCRE NEGATIVE (NEGATIVE)
[2019-01-28] MEDS ORDERED: PROM25TA14 PO (16:37)
[2019-01-28] MEDS ORDERED: DIPH25CA79 PO (16:37)
--- OUTSIDE RECORDS SUMMARY | 2019-02-22 13:22 | XMS REPORT | Continuity of Care Document ---
Author Organization Unknown Address Unknown Phone Unavailable Allergies Active Description Code Type Severity Reaction Onset Reported/Identified Relationship to Patient Clinical Status Yes No Known Drug Allergies [id number] Drug Allergy Unknown N/A 10/18/2018 Medications There is no data. Problems Date Dx Coded Attending Type Code Diagnosis Diagnosed By 10/16/2018 JONATHAN TILLMANP Ot F10.129 ALCOHOL ABUSE WITH INTOXICATION, UNSPECI 10/16/2018 LAYNEJONATHANP Ot F17.210 NICOTINE DEPENDENCE, CIGARETTES, UNCOMPL 10/16/2018 LAYNE, JONATHAN DIESEL LOCOMOTIVE FIRER Ot R11.2 NAUSEA WITH VOMITING, UNSPECIFIED 10/16/2018 LAYNE, JONATHAN DIESEL LOCOMOTIVE FIRER Ot Y90.1 BLOOD ALCOHOL LEVEL OF 20-39 MG/100 ML 10/17/2018 HARSHA GALICIA MD J Ot F17.210 NICOTINE DEPENDENCE, CIGARETTES, UNCOMPL 10/17/2018 ROMY GALICIA MDUS J Ot K56. 7 ILEUS, UNSPECIFIED 10/17/2018 GRAYSON CROFT, HARSHA J Ot R11. 2 NAUSEA WITH VOMITING, UNSPECIFIED 10/20/2018 LAYNE, JONATHAN HUITRONP Ot F10.129 ALCOHOL ABUSE WITH INTOXICATION, UNSPECI 10/20/2018 LAYNE, JONATHAN DIESEL LOCOMOTIVE FIRER Ot F17.210 NICOTINE DEPENDENCE, CIGARETTES, UNCOMPL 10/20/2018 LAYNE JONATHAN DIESEL LOCOMOTIVE FIRER Ot R11.2 NAUSEA WITH VOMITING, UNSPECIFIED 10/20/2018 LAYNE, JONATHAN DIESEL LOCOMOTIVE FIRER Ot Y90.1 BLOOD ALCOHOL LEVEL OF 20-39 MG/100 ML 10/20/2018 HARSHA GALICIA MD J Ot F17.210 NICOTINE DEPENDENCE, CIGARETTES, UNCOMPL 10/20/2018 HARSHA GALICIA MD J Ot K56. 7 ILEUS, UNSPECIFIED 10/20/2018 HARSHA GALICIA MD J Ot R11. 2 NAUSEA WITH VOMITING, UNSPECIFIED 10/20/2018 VERONICA RUELAS MD Ot F10.129 ALCOHOL ABUSE WITH INTOXICATION, UNSPECI 10/20/2018 VERONICA RUELAS MD Ot F17.210 NICOTINE DEPENDENCE, CIGARETTES, UNCOMPL 10/20/2018 VERONICA RUELAS MD Ot R11. 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 1 FAMILY HISTORY OF MALIG NEOPLASM OF TRAC 10/20/2018 VERONICA RUELAS MD Ot Z83. 79 FAMILY HISTORY OF OTHER DISEASES OF THE 12/12/2018 FELICIANO , NATHALIA K Ot F12.288 CANNABIS DEPENDENCE WITH OTHER CANNABIS- 12/12/2018 FELICIANO , NATHALIA K Ot F17.210 NICOTINE DEPENDENCE, CIGARETTES, UNCOMPL 12/12/2018 RAYMUNDO WIGGINS DOA K Ot R11.2 NAUSEA WITH VOMITING, UNSPECIFIED 12/18/2018 RALPH SHEA MD Ot F12.90 CANNABIS USE, UNSPECIFIED, UNCOMPLICATED 12/18/2018 RALPH SHEA MD Ot F17.210 NICOTINE DEPENDENCE, CIGARETTES, UNCOMPL 12/18/2018 RALPH SHEA MD Ot I10 ESSENTIAL (PRIMARY) HYPERTENSION 12/18/2018 RALPH SHEA MD Ot J45.909 UNSPECIFIED ASTHMA, UNCOMPLICATED 12/18/2018 RALPH SHEA MD Ot K25 .3 ACUTE GASTRIC ULCER WITHOUT HEMORRHAGE O 12/18/2018 RALPH SHEA MD Ot K29.50 UNSPECIFIED CHRONIC GASTRITIS WITHOUT BL 12/18/2018 RALPH SHEA MD Ot K44 .9 DIAPHRAGMATIC HERNIA WITHOUT OBSTRUCTION 12/18/2018 RALPH SHEA MD Ot K92 .0 HEMATEMESIS 12/18/2018 RALPH SHEA MD Ot N72 INFLAMMATORY DISEASE OF CERVIX UTERI 01/28/2019 ZAHIDA MERAZ MD Ot F17.210 NICOTINE DEPENDENCE, CIGARETTES, UNCOMPL 01/28/2019 ZAHIDA MERAZ MD Ot K21. 9 GASTRO-ESOPHAGEAL REFLUX DISEASE WITHOUT 01/28/2019 ZAHIDA MERAZ MD Ot R11. 2 NAUSEA WITH VOMITING, UNSPECIFIED 01/31/2019 KALYANI RUIZ APRN Ot F12.188 CANNABIS ABUSE WITH OTHER CANNABIS-INDUC 01/31/2019 KALYANI RUIZ APRN Ot R11 .2 NAUSEA WITH VOMITING, UNSPECIFIED 01/31/2019 KALYANI RUIZ APRN Ot Z77.22 CNTCT W AND EXPSR TO ENVIRON TOBACCO SMO 01/31/2019 ZAHIDA MERAZ MD Ot F17.210 NICOTINE DEPENDENCE, CIGARETTES, UNCOMPL 01/31/2019 KT CROFT, ZAHIDA Magaña Ot K21. 9 GASTRO-ESOPHAGEAL REFLUX DISEASE WITHOUT 01/31/2019 KT CROFT, ZAHIDA Magaña Ot R11. 2 NAUSEA WITH VOMITING, UNSPECIFIED 02/05/2019 FELICIANO DO, NATHALIA K Ot E87.6 HYPOKALEMIA 02/05/2019 FELICIANO DO, NATHALIA K Ot F12.188 CANNABIS ABUSE WITH OTHER CANNABIS-INDUC 02/05/2019 FELICIANO DO, NATHALIA K Ot F17.210 NICOTINE DEPENDENCE, CIGARETTES, UNCOMPL 02/05/2019 FELICIANO DO, NATHALIA K Ot K21.9 GASTRO-ESOPHAGEAL REFLUX DISEASE WITHOUT 02/05/2019 FELICIANO DO, NATHALIA K Ot R11.2 NAUSEA WITH VOMITING, UNSPECIFIED Procedures There is no data. Results Test Result Range Complete urinalysis with reflex to cultu re - 10/16/18 19:59 Urine color determination YELLOW NRG Urine clarity determination SL CLOUDY N RG Urine pH measurement by test strip 8 5-9 Specific gravity of urine by test strip 1.010 1.016-1.022 Urine protein assay by test strip, semi-quantitative 2+ NEGATIVE Urine glucose detection by automated test strip NE GATIVE NEGATIVE Erythrocytes detection in urine sediment by light micr oscopy 5+ NEGATIVE Urine ketones detection by automated test strip 1+ NEGATIVE Urine nitrite detection by test strip NEGATIVE NEGATIVE Urine total bilirubin detection by test strip NEGA TIVE NEGATIVE Urine urobilinogen measurement by automated test strip (mass/volume) 1 mg/dL NORMAL Urine leukocyte esterase detection by dipstick 1+ NEGATIVE Automated urine sediment erythrocyte cou nt by microscopy (number/high power field) [HPF] NRG Automated urine sediment leukocyte count by microscopy (number/high power field) RARE NRG Bacteria detection in urine sediment by light microsco py TRACE NRG Squamous epithelial cells detection in u rine sediment by light microscopy 2-5 NRG Crystals detection in urine sediment by light microsco py PRESENT NRG Casts detection in urine sediment by light microscopy NONE NRG Mucus detection in urine sediment by light microscopy MODERATE NRG Complete urinalysis with reflex to culture NO NRG Amorphous sediment detection in urine sediment by ligh t microscopy FEW DEXTER PHOSPHATE NRG Urine drug screening test - 10/16/18 19: 59 Urine phencyclidine detection by screening method NEGATIVE NEGATIVE Urine benzodiazepines detection by screening method NEGATIVE NEGATIVE Urine cocaine detection POSITIVE NEGATI VE Urine amphetamines detection by screening method N EGATIVE NEGATIVE Urine methamphetamine detection by screening method NEGATIVE NEGATIVE Urine cannabinoids detection by screening method P OSITIVE NEGATIVE Urine opiates detection by screening method NEGATI VE NEGATIVE Urine barbiturates detection NEGATIVE N EGATIVE Screening urine tricyclic antidepressants detection NEGATIVE NEGATIVE Urine methadone detection by screening method NEGA TIVE NEGATIVE Urine oxycodone detection NEGATIVE NEGA TIVE Urine propoxyphene detection NEGATIVE N EGATIVE Complete blood count (CBC) with automate d white blood cell (WBC) differential - 10/16/18 20:03 Blood leukocytes automated count (number/volume) 8.0 10*3/uL 4.3-11.0 Blood erythrocytes automated count (number/volume) 4.58 10*6/uL 4.35-5.85 Venous blood hemoglobin measurement (mass/volume) 13.5 g/dL 11.5-16.0 Blood hematocrit (volume fraction) 39 % 35-52 Automated erythrocyte mean corpuscular volume 86 [ foz_us] 80-99 Automated erythrocyte mean corpuscular h emoglobin (mass per erythrocyte) 30 pg 25-34 Automated erythrocyte mean corpuscular h emoglobin concentration measurement (mass/volume) 34 g/dL 32-36 Automated erythrocyte distribution width ratio 13. 2 % 10.0- 14.5 Automated blood platelet count (count/volume) 441 10*3/uL 130-400 Automated blood platelet mean volume measurement 9.7 [foz_us] 7.4-10.4 Automated blood neutrophils/100 leukocytes 63 % 42-75 Automated blood lymphocytes/100 leukocytes 25 % 12-44 Blood monocytes/100 leukocytes 9 % 0-12 Automated blood eosinophils/100 leukocytes 3 % 0-10 Automated blood basophils/100 leukocytes 1 % 0-10 Blood neutrophils automated count (number/volume) 5.0 10*3 1.8-7.8 Blood lymphocytes automated count (number/volume) 2.0 10*3 1.0-4.0 Blood monocytes automated count (number/volume) 0. 7 10*3 0.0-1.0 Automated eosinophil count 0.2 10*3/uL 0 .0-0.3 Automated blood basophil count (count/volume) 0.1 10*3/uL 0.0-0.1 Comprehensive metabolic panel - 10/16/18 20:03 Serum or plasma sodium measurement (moles/volume) 140 mmol/L 135-145 Serum or plasma potassium measurement (moles/volume) 3.5 mmol/L 3.6-5.0 Serum or plasma chloride measurement (moles/volume) 103 mmol/L 98-107 Carbon dioxide 22 mmol/L 21-32 Serum or plasma anion gap determination (moles/volume) 15 mmol/L 5-14 Serum or plasma urea nitrogen measurement (mass/volume ) 8 mg/dL 7-18 Serum or plasma creatinine measurement (mass/volume) 0.86 mg/dL 0.60-1.30 Serum or plasma urea nitrogen/creatinine mass ratio 9 NRG Serum or plasma creatinine measurement w ith calculation of estimated glomerular filtration rate > NRG Serum or plasma glucose measurement (mass/volume) 102 mg/dL 70-105 Serum or plasma calcium measurement (mass/volume) 10.4 mg/dL 8.5-10.1 Serum or plasma total bilirubin measurement (mass/volu me) 1.4 mg/dL 0.1-1.0 Serum or plasma alkaline phosphatase merlin surement (enzymatic activity/volume) 64 U/L 40-136 Serum or plasma aspartate aminotransfera se measurement (enzymatic activity/volume) 29 U/L 5-34 Serum or plasma alanine aminotransferase measurement (enzymatic activity/volume) 21 U/L 0-55 Serum or plasma protein measurement (mass/volume) 9.3 g/dL 6.4-8.2 Serum or plasma albumin measurement (mass/volume) 5.1 g/dL 3.2-4.5 Magnesium - 10/16/18 20:03 Magnesium 1.6 mg/dL 1.6-2.4 Serum or plasma amylase measurement (enz ymatic activity/volume) - 10/16/18 20:03 Serum or plasma amylase measurement (enzymatic activit y/volume) 66 U/L 25-125 Serum or plasma ethanol measurement (mas s/volume) - 10/16/18 20:03 Serum or plasma ethanol measurement (mass/volume) < mg/dL <10 PT panel in platelet poor plasma by coag ulation assay - 10/16/18 20:03 Prothrombin time (PT) in platelet poor plasma by coagu lation assay 13.7 s 12.2-14.7 INR in platelet poor plasma or blood by coagulation as say 1.0 0.8-1.4 Activated partial thromboplastin time (a PTT) in platelet poor plasma bycoagulation assay - 10/16/18 20:03 Activated partial thromboplastin time (a PTT) in platelet poor plasma bycoagulation assay 26 s 24-35 Complete blood count (CBC) with automate d white blood cell (WBC) differential - 10/17/18 10:23 Blood leukocytes automated count (number/volume) 11.6 10*3/uL 4.3-11.0 Blood erythrocytes automated count (number/volume) 4.04 10*6/uL 4.35-5.85 Venous blood hemoglobin measurement (mass/volume) 12.1 g/dL 11.5-16.0 Blood hematocrit (volume fraction) 35 % 35-52 Automated erythrocyte mean corpuscular volume 85 [ foz_us] 80-99 Automated erythrocyte mean corpuscular h emoglobin (mass per erythrocyte) 30 pg 25-34 Automated erythrocyte mean corpuscular h emoglobin concentration measurement (mass/volume) 35 g/dL 32-36 Automated erythrocyte distribution width ratio 13. 2 % 10.0- 14.5 Automated blood platelet count (count/volume) 373 10*3/uL 130-400 Automated blood platelet mean volume measurement 10.0 [foz_us] 7.4-10.4 Automated blood neutrophils/100 leukocytes 83 % 42-75 Automated blood lymphocytes/100 leukocytes 7 % 12-44 Blood monocytes/100 leukocytes 9 % 0-12 Automated blood eosinophils/100 leukocytes 0 % 0-10 Automated blood basophils/100 leukocytes 0 % 0-10 Blood neutrophils automated count (number/volume) 9.7 10*3 1.8-7.8 Blood lymphocytes automated count (number/volume) 0.8 10*3 1.0-4.0 Blood monocytes automated count (number/volume) 1. 1 10*3 0.0-1.0 Automated eosinophil count 0.0 10*3/uL 0 .0-0.3 Automated blood basophil count (count/volume) 0.0 10*3/uL 0.0-0.1 Comprehensive metabolic panel - 10/17/18 10:23 Serum or plasma sodium measurement (moles/volume) 138 mmol/L 135-145 Serum or plasma potassium measurement (moles/volume) 3.5 mmol/L 3.6-5.0 Serum or plasma chloride measurement (moles/volume) 103 mmol/L 98-107 Carbon dioxide 19 mmol/L 21-32 Serum or plasma anion gap determination (moles/volume) 16 mmol/L 5-14 Serum or plasma urea nitrogen measurement (mass/volume ) 10 mg/dL 7-18 Serum or plasma creatinine measurement (mass/volume) 0.84 mg/dL 0.60-1.30 Serum or plasma urea nitrogen/creatinine mass ratio 12 NRG Serum or plasma creatinine measurement w ith calculation of estimated glomerular filtration rate > NRG Serum or plasma glucose measurement (mass/volume) 104 mg/dL 70-105 Serum or plasma calcium measurement (mass/volume) 9.8 mg/dL 8.5-10.1 Serum or plasma total bilirubin measurement (mass/volu me) 1.4 mg/dL 0.1-1.0 Serum or plasma alkaline phosphatase merlin surement (enzymatic activity/volume) 54 U/L 40-136 Serum or plasma aspartate aminotransfera se measurement (enzymatic activity/volume) 23 U/L 5-34 Serum or plasma alanine aminotransferase measurement (enzymatic activity/volume) 17 U/L 0-55 Serum or plasma protein measurement (mass/volume) 7.8 g/dL 6.4-8.2 Serum or plasma albumin measurement (mass/volume) 4.4 g/dL 3.2-4.5 CALCIUM CORRECTED 9.5 mg/dL 8.5-10.1 Magnesium - 10/17/18 10:23 Magnesium 1.4 mg/dL 1.6-2.4 Serum or plasma troponin i.cardiac measu rement (mass/volume) - 10/17/18 10:23 Serum or plasma troponin i.cardiac measurement (mass/v olume) < ng/mL <0.028 Lipase - 10/17/18 10:23 Lipase 15 U/L 8-78 Manual absolute plasma cell count - 09/22 09/08 10:23 Blood monocytes/100 leukocytes 7 % NRG Manual blood segmented neutrophils/100 leukocytes 86 % NRG Manual blood lymphocytes/100 leukocytes 7 % NRG Blood erythrocyte morphology finding identification NORMAL NRG Complete blood count (CBC) with automate d white blood cell (WBC) differential - 10/18/18 10:25 Blood leukocytes automated count (number/volume) 8.1 10*3/uL 4.3-11.0 Blood erythrocytes automated count (number/volume) 3.98 10*6/uL 4.35-5.85 Venous blood hemoglobin measurement (mass/volume) 11.9 g/dL 11.5-16.0 Blood hematocrit (volume fraction) 35 % 35-52 Automated erythrocyte mean corpuscular volume 87 [ foz_us] 80-99 Automated erythrocyte mean corpuscular h emoglobin (mass per erythrocyte) 30 pg 25-34 Automated erythrocyte mean corpuscular h emoglobin concentration measurement (mass/volume) 34 g/dL 32-36 Automated erythrocyte distribution width ratio 13. 0 % 10.0- 14.5 Automated blood platelet count (count/volume) 303 10*3/uL 130-400 Automated blood platelet mean volume measurement 10.4 [foz_us] 7.4-10.4 Automated blood neutrophils/100 leukocytes 76 % 42-75 Automated blood lymphocytes/100 leukocytes 13 % 12-44 Blood monocytes/100 leukocytes 11 % 0-12 Automated blood eosinophils/100 leukocytes 0 % 0-10 Automated blood basophils/100 leukocytes 0 % 0-10 Blood neutrophils automated count (number/volume) 6.1 10*3 1.8-7.8 Blood lymphocytes automated count (number/volume) 1.0 10*3 1.0-4.0 Blood monocytes automated count (number/volume) 0. 9 10*3 0.0-1.0 Automated eosinophil count 0.0 10*3/uL 0 .0-0.3 Automated blood basophil count (count/volume) 0.0 10*3/uL 0.0-0.1 Comprehensive metabolic panel - 10/18/18 10:25 Serum or plasma sodium measurement (moles/volume) 138 mmol/L 135-145 Serum or plasma potassium measurement (moles/volume) 4.2 mmol/L 3.6-5.0 Serum or plasma chloride measurement (moles/volume) 104 mmol/L 98-107 Carbon dioxide 21 mmol/L 21-32 Serum or plasma anion gap determination (moles/volume) 13 mmol/L 5-14 Serum or plasma urea nitrogen measurement (mass/volume ) 12 mg/dL 7-18 Serum or plasma creatinine measurement (mass/volume) 0.85 mg/dL 0.60-1.30 Serum or plasma urea nitrogen/creatinine mass ratio 14 NRG Serum or plasma creatinine measurement w ith calculation of estimated glomerular filtration rate > NRG Serum or plasma glucose measurement (mass/volume) 92 mg/dL 70-105 Serum or plasma calcium measurement (mass/volume) 9.5 mg/dL 8.5-10.1 Serum or plasma total bilirubin measurement (mass/volu me) 0.6 mg/dL 0.1-1.0 Serum or plasma alkaline phosphatase merlin surement (enzymatic activity/volume) 49 U/L 40-136 Serum or plasma aspartate aminotransfera se measurement (enzymatic activity/volume) 30 U/L 5-34 Serum or plasma alanine aminotransferase measurement (enzymatic activity/volume) 21 U/L 0-55 Serum or plasma protein measurement (mass/volume) 8.3 g/dL 6.4-8.2 Serum or plasma albumin measurement (mass/volume) 4.3 g/dL 3.2-4.5 CALCIUM CORRECTED 9.3 mg/dL 8.5-10.1 Magnesium - 10/18/18 10:25 Magnesium 2.0 mg/dL 1.6-2.4 Serum or plasma C reactive protein measu rement (mass/volume) - 10/18/18 10:25 Serum or plasma C reactive protein measurement (mass/v olume) 0.17 mg/dL 0.00-0.50 Serum or plasma choriogonadotropin (preg sue test) detection - 10/18/18 10:25 Serum or plasma choriogonadotropin ( test) de tection NEGATIVE NEGATIVE Complete urinalysis with reflex to cultu re - 10/18/18 12:05 Urine color determination YELLOW NRG Urine clarity determination CLEAR NR G Urine pH measurement by test strip 7 5-9 Specific gravity of urine by test strip 1.010 1.016-1.022 Urine protein assay by test strip, semi-quantitative 1+ NEGATIVE Urine glucose detection by automated test strip 4+ NEGATIVE Erythrocytes detection in urine sediment by light micr oscopy 5+ NEGATIVE Urine ketones detection by automated test strip 4+ NEGATIVE Urine nitrite detection by test strip NEGATIVE NEGATIVE Urine total bilirubin detection by test strip NEGA TIVE NEGATIVE Urine urobilinogen measurement by automated test strip (mass/volume) NORMAL NORMAL Urine leukocyte esterase detection by dipstick NEG ATIVE NEGATIVE Automated urine sediment erythrocyte cou nt by microscopy (number/high power field) [HPF] NRG Automated urine sediment leukocyte count by microscopy (number/high power field) NONE NRG Bacteria detection in urine sediment by light microsco py TRACE NRG Squamous epithelial cells detection in u rine sediment by light microscopy 5-10 NRG Crystals detection in urine sediment by light microsco py NONE NRG Casts detection in urine sediment by light microscopy NONE NRG Mucus detection in urine sediment by light microscopy MODERATE NRG Complete urinalysis with reflex to culture NO NRG Complete blood count (CBC) with automate d white blood cell (WBC) differential - 10/19/18 05:40 Blood leukocytes automated count (number/volume) 5.3 10*3/uL 4.3-11.0 Blood erythrocytes automated count (number/volume) 3.97 10*6/uL 4.35-5.85 Venous blood hemoglobin measurement (mass/volume) 11.7 g/dL 11.5-16.0 Blood hematocrit (volume fraction) 34 % 35-52 Automated erythrocyte mean corpuscular volume 87 [ foz_us] 80-99 Automated erythrocyte mean corpuscular h emoglobin (mass per erythrocyte) 29 pg 25-34 Automated erythrocyte mean corpuscular h emoglobin concentration measurement (mass/volume) 34 g/dL 32-36 Automated erythrocyte distribution width ratio 12. 9 % 10.0- 14.5 Automated blood platelet count (count/volume) 310 10*3/uL 130-400 Automated blood platelet mean volume measurement 10.4 [foz_us] 7.4-10.4 Automated blood neutrophils/100 leukocytes 57 % 42-75 Automated blood lymphocytes/100 leukocytes 30 % 12-44 Blood monocytes/100 leukocytes 12 % 0-12 Automated blood eosinophils/100 leukocytes 0 % 0-10 Automated blood basophils/100 leukocytes 0 % 0-10 Blood neutrophils automated count (number/volume) 3.0 10*3 1.8-7.8 Blood lymphocytes automated count (number/volume) 1.6 10*3 1.0-4.0 Blood monocytes automated count (number/volume) 0. 7 10*3 0.0-1.0 Automated eosinophil count 0.0 10*3/uL 0 .0-0.3 Automated blood basophil count (count/volume) 0.0 10*3/uL 0.0-0.1 Comprehensive metabolic panel - 10/19/18 05:40 Serum or plasma sodium measurement (moles/volume) 137 mmol/L 135-145 Serum or plasma potassium measurement (moles/volume) 3.3 mmol/L 3.6-5.0 Serum or plasma chloride measurement (moles/volume) 103 mmol/L 98-107 Carbon dioxide 20 mmol/L 21-32 Serum or plasma anion gap determination (moles/volume) 14 mmol/L 5-14 Serum or plasma urea nitrogen measurement (mass/volume ) 4 mg/dL 7-18 Serum or plasma creatinine measurement (mass/volume) 0.71 mg/dL 0.60-1.30 Serum or plasma urea nitrogen/creatinine mass ratio 6 NRG Serum or plasma creatinine measurement w ith calculation of estimated glomerular filtration rate > NRG Serum or plasma glucose measurement (mass/volume) 86 mg/dL 70-105 Serum or plasma calcium measurement (mass/volume) 8.7 mg/dL 8.5-10.1 Serum or plasma total bilirubin measurement (mass/volu me) 0.5 mg/dL 0.1-1.0 Serum or plasma alkaline phosphatase merlin surement (enzymatic activity/volume) 43 U/L 40-136 Serum or plasma aspartate aminotransfera se measurement (enzymatic activity/volume) 19 U/L 5-34 Serum or plasma alanine aminotransferase measurement (enzymatic activity/volume) 13 U/L 0-55 Serum or plasma protein measurement (mass/volume) 7.1 g/dL 6.4-8.2 Serum or plasma albumin measurement (mass/volume) 4.1 g/dL 3.2-4.5 CALCIUM CORRECTED 8.6 mg/dL 8.5-10.1 Complete blood count (CBC) with automate d white blood cell (WBC) differential - 11/29/18 22:05 Blood leukocytes automated count (number/volume) 6.7 10*3/uL 4.3-11.0 Blood erythrocytes automated count (number/volume) 4.44 10*6/uL 4.35-5.85 Venous blood hemoglobin measurement (mass/volume) 12.9 g/dL 11.5-16.0 Blood hematocrit (volume fraction) 37 % 35-52 Automated erythrocyte mean corpuscular volume 84 [ foz_us] 80-99 Automated erythrocyte mean corpuscular h emoglobin (mass per erythrocyte) 29 pg 25-34 Automated erythrocyte mean corpuscular h emoglobin concentration measurement (mass/volume) 35 g/dL 32-36 Automated erythrocyte distribution width ratio 12. 8 % 10.0- 14.5 Automated blood platelet count (count/volume) 449 10*3/uL 130-400 Automated blood platelet mean volume measurement 9.5 [foz_us] 7.4-10.4 Automated blood neutrophils/100 leukocytes 70 % 42-75 Automated blood lymphocytes/100 leukocytes 22 % 12-44 Blood monocytes/100 leukocytes 7 % 0-12 Automated blood eosinophils/100 leukocytes 0 % 0-10 Automated blood basophils/100 leukocytes 0 % 0-10 Blood neutrophils automated count (number/volume) 4.7 10*3 1.8-7.8 Blood lymphocytes automated count (number/volume) 1.5 10*3 1.0-4.0 Blood monocytes automated count (number/volume) 0. 5 10*3 0.0-1.0 Automated eosinophil count 0.0 10*3/uL 0 .0-0.3 Automated blood basophil count (count/volume) 0.0 10*3/uL 0.0-0.1 Serum or plasma choriogonadotropin (preg sue test) detection - 11/29/18 22:05 Serum or plasma choriogonadotropin ( test) de tection NEGATIVE NEGATIVE Comprehensive metabolic panel - 11/29/18 22:05 Serum or plasma sodium measurement (moles/volume) 140 mmol/L 135-145 Serum or plasma potassium measurement (moles/volume) 3.7 mmol/L 3.6-5.0 Serum or plasma chloride measurement (moles/volume) 104 mmol/L 98-107 Carbon dioxide 22 mmol/L 21-32 Serum or plasma anion gap determination (moles/volume) 14 mmol/L 5-14 Serum or plasma urea nitrogen measurement (mass/volume ) 17 mg/dL 7-18 Serum or plasma creatinine measurement (mass/volume) 0.78 mg/dL 0.60-1.30 Serum or plasma urea nitrogen/creatinine mass ratio 22 NRG Serum or plasma creatinine measurement w ith calculation of estimated glomerular filtration rate > NRG Serum or plasma glucose measurement (mass/volume) 107 mg/dL 70-105 Serum or plasma calcium measurement (mass/volume) 10.4 mg/dL 8.5-10.1 Serum or plasma total bilirubin measurement (mass/volu me) 0.5 mg/dL 0.1-1.0 Serum or plasma alkaline phosphatase merlin surement (enzymatic activity/volume) 52 U/L 40-136 Serum or plasma aspartate aminotransfera se measurement (enzymatic activity/volume) 23 U/L 5-34 Serum or plasma alanine aminotransferase measurement (enzymatic activity/volume) 19 U/L 0-55 Serum or plasma protein measurement (mass/volume) 8.5 g/dL 6.4-8.2 Serum or plasma albumin measurement (mass/volume) 4.6 g/dL 3.2-4.5 Magnesium - 11/29/18 22:05 Magnesium 1.9 mg/dL 1.6-2.4 Lipase - 11/29/18 22:05 Lipase 12 U/L 8-78 Serum or plasma ethanol measurement (mas s/volume) - 11/29/18 22:05 Serum or plasma ethanol measurement (mass/volume) < mg/dL <10 Serum or plasma C reactive protein measu rement (mass/volume) - 11/29/18 22:05 Serum or plasma C reactive protein measurement (mass/v olume) 0.75 mg/dL 0.00-0.50 Complete urinalysis with reflex to cultu re - 11/29/18 22:35 Urine color determination LESTER NRG Urine clarity determination VERY CLOUDY NRG Urine pH measurement by test strip 6 5-9 Specific gravity of urine by test strip 1.025 1.016-1.022 Urine protein assay by test strip, semi-quantitative 2+ NEGATIVE Urine glucose detection by automated test strip NE GATIVE NEGATIVE Erythrocytes detection in urine sediment by light micr oscopy 3+ NEGATIVE Urine ketones detection by automated test strip 4+ NEGATIVE Urine nitrite detection by test strip NEGATIVE NEGATIVE Urine total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
== END 2019-01-27 18:43 | disposition home or self-care (01) ==
LOC: EDUNIT# 16:34 → ER 16:35
DX: F12.188 Cannabis abuse with other cannabis-induced disorder (principal); Z77.22 Contact with and (suspected) exposure to environmental tobacco smoke (acute) (chronic)
CPT/HCPCS: 36415; 80053; 80306; 81000; 83690; 84703; 85025; 87088; 93005; 96361; 96374; 96375

== ENCOUNTER 2019-01-28 12:25 | Emergency (ER) | payer SELFPAY ==
[~2019-01-28] VITALS: Ht 157 cm; Wt 56.3 kg
[~2019-01-28 12:25] MED LIST changes: +ONDA8TAB13 PO
--- NOTE | 2019-01-28 12:59 | NUR ---
pt not in waiting room when called.
[2019-01-28 13:05] VITALS: BP 142/91
--- NOTE | 2019-01-28 13:26 | ED GI ---
General Chief Complaint: Abdominal/GI Problems Stated Complaint: VOMITING, CHEST PAIN, COUGH Nursing Triage Note: Patient ambulatory to triage room with complaint of vomiting and chest hurts to breath. Patient states she was seen in ER last night for same symptoms and they continue to get worse. Patient is awake and alert x 4. Sepsis Screen: No Definite Risk Source of Information: Patient, Family Exam Limitations: No Limitations History of Present Illness Date Seen by Provider: Jan 28, 2019 Time Seen by Provider: 13:23 Initial Comments This 23-year-old female returns to the emergency department with a complaint of persistent vomiting. Patient has had secondary epigastric pain following multiple episodes of emesis. Patient has had similar episodes over the last several months for which she has been seen here and upon occasion hospitalized. Although thought has been given to the possibility of this is induced by mar ijuana use the patient states that she has not smoked for several days. Patient denies associated fever or chill, body aches, upper respiratory symptoms, or the use of other medications. Allergies and Home Medications Allergies Coded Allergies: No Known Drug Allergies (Unverified , 10/18/18) Home Medications Hyoscyamine Sulfate 0.125 Mg Tab.subl, 1-2 TAB SL Q4H Prescribed by: NATHLAIA WIGGINS on 12/12/18 0609 Naproxen 500 Mg Tablet, 500 MG PO Q12H PRN for PAIN-MILD, (Reported) FILLED #28 11-24-18 Ondansetron 8 Mg Tab.rapdis, 8 MG PO Q6H PRN for NAUSEA/VOMITING Prescribed by: KALYANI RUIZ on 01/27/19 1700 Ondansetron HCl 4 Mg Tab, 4 MG PO Q4H Prescribed by: VERONICA RUELAS on 12/03/18 1004 Pantoprazole Sodium 40 Mg Tablet.dr, 40 MG PO DAILY Prescribed by: VERONICA RUELAS on 12/03/18 1004 Prochlorperazine Maleate 25 Mg Supp.rect, 25 MG RC Q6H Prescribed by: NATHALIA WIGGINS on 12/12/18 0609 Patient Home Medication List Home Medication List Reviewed: Yes Review of Systems Review of Systems Constitutional: No chills, No fever EENTM: No Symptoms Reported Respiratory: No Symptoms Reported Cardiovascular: Chest Pain Gastrointestinal: Abdominal Pain, Nausea, Vomiting Genitourinary: No Symptoms Reported Musculoskeletal: no symptoms reported Skin: no symptoms reported Psychiatric/Neurological: No Symptoms Reported Endocrine: No Symptoms Reported Hematologic/Lymphatic: No Symptoms Reported Past Ehjylfy-Riswzh-Gxscwv Hx Past Med/Social Hx: Reviewed Nursing Past Med/Soc Hx Patient Social History Alcohol Use: Denies Use Recreational Drug Use: Yes Drug of Choice: THC, COCAINE Smoking Status: Current Everyday Smoker Type Used: Cigarettes 2nd Hand Smoke Exposure: Yes Recent Foreign Travel: No Contact w/Someone Who Travel: No Recent Infectious Disease Expo: No Recent Hopitalizations: No Physical Abuse: No Sexual Abuse: No Mistreated: No Fear: No Immunizations Up To Date Tetanus Booster (TDap): Unknown PED Vaccines UTD: Yes Seasonal Allergies Seasonal Allergies: Yes Past Medical History Surgeries: Yes (EGD/BIOPSY) Respiratory: No Cardiac: No Neurological: No Reproductive Disorders: No Female Reproductive Disorders: Denies Genitourinary: No Gastrointestinal: Yes (CHRONIC NAUSEA/VOMITING/ABDOMINAL PAIN) Gastroesophageal Reflux Musculoskeletal: No Endocrine: No HEENT: No Loss of Vision: Denies Cancer: No Psychosocial: No Integumentary: No Blood Disorders: No Family Medical History Patient reports no known family medical history. Cancer, Other Conditions/Hx Physical Exam Vital Signs Vital Signs - First Documented 01/28/19 12:42 Temp 36.6 Pulse 75 Resp 20 B/P (MAP) 146/87 (106) Pulse Ox 100 O2 Delivery Room Air Capillary Refill : Less Than 3 Seconds Height/Weight/BMI Height: 5'2.00" Weight: 125lbs. oz. 56.754882er; 22.00 BMI Method:Stated General Appearance: WD/WN, mild distress HEENT: normal ENT inspection Neck: normal inspection Respiratory: normal breath sounds Cardiovascular: regular rate, rhythm Gastrointestinal: soft, tenderness (mild diffuse tenderness) Extremities: normal range of motion, non-tender Back: normal inspection Neurologic/Psychiatric: no motor/sensory deficits, alert Skin: normal color, warm/dry Progress/Results/Core Measures Results/Orders My Orders Orders - ZAHIDA MERAZ MD Iv 1000 Ml (Sodium Chloride 0.9%) (01/28/19 13:30) Ondansetron Injection (Zofran Injectio (01/28/19 13:30) Fentanyl Injection (Sublimaze Injection (01/28/19 13:30) Promethazine Injection (Phenergan Injec (01/28/19 14:15) Diphenhydramine Injection (Benadryl Inje (01/28/19 14:15) Ns Iv 1000 Ml (Sodium Chloride 0.9%) (01/28/19 15:45) Medications Given in ED Current Medications Medications Dose Ordered Sig/Minerva Route Start Time Stop Time Status Last Admin Dose Admin Diphenhydramine HCl 25 mg ONCE ONCE IVP 01/28/19 14:15 01/28/19 14:16 DC 01/28/19 14:10 25 MG Fentanyl Citrate 50 mcg ONCE ONCE IVP 01/28/19 13:30 01/28/19 13:31 DC 01/28/19 13:32 50 MCG Ondansetron HCl 4 mg ONCE ONCE IVP 01/28/19 13:30 01/28/19 13:31 DC 01/28/19 13:32 4 MG Promethazine HCl 25 mg ONCE ONCE IVP 01/28/19 14:15 01/28/19 14:16 DC 01/28/19 14:10 25 MG Vital Signs/I&O 01/28/19 01/28/19 12:42 13:05 Temp 36.6 Pulse 75 73 Resp 20 18 B/P (MAP) 146/87 (106) 142/91 (108) Pulse Ox 100 100 O2 Delivery Room Air Room Air Blood Pressure Mean: 108 POS Progress Progress Note : Time: 16:33 Progress Note The patient received IV Zofran which was ineffective. She was then given Phenergan and Benadryl with good relief of her nausea. Laboratory evaluation is unremarkable. Patient requested medications to be used at home. Phenergan and Benadryl were prescribed. Departure Impression Primary Impression: Nausea and vomiting Qualified Codes: R11.2 - Nausea with vomiting, unspecified Disposition: 01 HOME, SELF-CARE Condition: Improved Departure-Patient Inst. Decision time for Depature: 16:34 Referrals: [facility] [place] [facility],LOCAL PHYSICIAN (PCP) Primary Care Physician Patient Instructions: Nausea and Vomiting, Adult Add. Discharge Instructions: Benadryl and Phenergan as needed. Clear liquids tonight. Return if any problems or questions. All discharge instructions reviewed with patient and/or family. Voiced understanding. Scripts Promethazine HCl (Promethazine Tablet) 25 Mg Tablet 25 MG PO Q6H PRN for NAUSEA/VOMITING, #14 TAB Prov: ZAHIDA MERAZ MD 01/28/19 Diphenhydramine HCl (Benadryl) 25 Mg Capsule 50 MG PO Q4H PRN for NAUSEA/VOMITING-1ST LINE, #20 CAP Prov: ZAHIDA MERAZ MD 01/28/19 ZAHIDA MERAZ MD Jan 28, 2019 13:26 POS
[2019-01-28] MEDS ORDERED: ONDANSETRON 4 MG/2 ML (SDV) Z0FRAN IVP ONE (13:30)
[2019-01-28] MEDS ORDERED: fentaNYL INJECTION 100 MCG/2 ML AMP IVP ONE (13:30)
[2019-01-28] MEDS: NS IV 1000 ML 1,000 ML IV SCH (13:32)
[2019-01-28] MEDS ORDERED: diphenhydrAMINE 50 MG/ML INJ (BENADRYL) IVP ONE (14:15)
[2019-01-28] MEDS ORDERED: PROMETHAZINE INJ 25 MG/ML (PHENERGAN) AMP IVP ONE (14:15)
[2019-01-28] MEDS ORDERED: NS IV 1000 ML 1,000 ML IV SCH (15:45)
[2019-01-28] MEDS ORDERED: DIPH25CA79 PO (16:37)
[2019-01-28] MEDS ORDERED: PROM25TA14 PO (16:37)
[2019-01-28 16:44] VITALS: BP 148/100
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
== END 2019-01-28 16:46 | disposition home or self-care (01) ==
LOC: EDUNIT# 12:25 → ER 12:26
DX: R11.2 Nausea with vomiting, unspecified (principal); K21.9 Gastro-esophageal reflux disease without esophagitis; F17.210 Nicotine dependence, cigarettes, uncomplicated
CPT/HCPCS: 96361; 96374; 96375

== ENCOUNTER 2019-01-30 15:34 | Emergency (ER) | payer SELFPAY ==
[~2019-01-30] VITALS: Ht 157.5 cm; Wt 56.4 kg
[~2019-01-30 15:34] MED LIST changes: +DIPH25CA79 PO
[2019-01-30] MEDS ORDERED: LACTATED RINGERS 1,000 ML IV ONE (16:14)
[2019-01-30] MEDS ORDERED: ONDANSETRON 4 MG/2 ML (SDV) Z0FRAN IVP ONE (16:15)
[2019-01-30] MEDS ORDERED: PANTOPRAZOLE 40 MG (PROTONIX) VIAL IV ONE (16:15)
[2019-01-30 16:24] LABS: BASOPHILS % (AUTO) 0 % (0-10); EOSINOPHILS % (AUTO) 0 % (0-10); HEMATOCRIT 36 % (35-52); HEMOGLOBIN 12.6 G/DL (11.5-16.0); LYMPHOCYTES # (AUTO) 1.9 X 10^3 (1.0-4.0); LYMPHOCYTES % (AUTO) 27 % (12-44); MEAN CORPUSCULAR HEMOGLOBIN 29 PG (25-34); MEAN CORPUSCULAR HGB CONC 35 G/DL (32-36); MEAN CORPUSCULAR VOLUME 82 FL (80-99); MONOCYTES # (AUTO) 0.8 X 10^3 (0.0-1.0); MONOCYTES % (AUTO) 12 % (0-12); NEUTROPHILS # (AUTO) 4.3 X 10^3 (1.8-7.8); NEUTROPHILS % (AUTO) 61 % (42-75); PLATELET COUNT 353 10^3/uL (130-400); RED CELL DISTRIBUTION WIDTH 13.2 % (10.0-14.5); WHITE BLOOD COUNT 7.1 10^3/uL (4.3-11.0)
[2019-01-30 16:38] LABS: ALANINE AMINOTRANSFERASE 12 U/L (0-55); ALBUMIN 4.8 GM/DL (3.2-4.5); ALKALINE PHOSPHATASE 44 U/L (40-136); AMYLASE 54 U/L (25-125); BILIRUBIN,TOTAL 1.2 MG/DL (0.1-1.0); BUN/CREATININE RATIO 23; CALCIUM 9.8 MG/DL (8.5-10.1); CARBON DIOXIDE 21 MMOL/L (21-32); CHLORIDE 103 MMOL/L (98-107); CREATININE SERUM 0.75 MG/DL (0.60-1.30); GFR ESTIMATED > 60; GLUCOSE 103 MG/DL (70-105); LIPASE 28 U/L (8-78); MAGNESIUM 2.2 MG/DL (1.6-2.4); POTASSIUM 3.1 MMOL/L (3.6-5.0); SODIUM 139 MMOL/L (135-145); TOTAL PROTEIN 8.1 GM/DL (6.4-8.2)
--- NOTE | 2019-01-30 16:39 | ED GI ---
General Chief Complaint: Abdominal/GI Problems Stated Complaint: VOMITING Nursing Triage Note: PT AMB TO TRIAGE WITH C/O NAUSEA AND VOMITING. PT STATES, "MY CHEST GETS TIGHT WHEN I THROW UP." PT REPORTS SYMPTOMS BEGAN ON 01/27/19 AND HAS BEEN SEEN IN THIS ED X2 SINCE ONSET. PT REPORTS TO HAVE BEEN PRESCRIBED PROMETHAZINE, ZOFRAN, AND BENADRYL WITH NO RELIEF. PT STATES, "EVERYTIME I DRINK I THROW UP." DENIES FEVER. Sepsis Screen: No Definite Risk Source of Information: Patient, Old Records History of Present Illness Date Seen by Provider: Jan 30, 2019 Time Seen by Provider: 16:10 Initial Comments PT ARRIVES VIA POV FROM HOME WITH MALE S.O. PT C/O NAUSEA/VOMITING/DIARRHEA AND ABDOMINAL PAIN AND CHEST PAIN --STATES HER CHEST STARTS HURTING WHEN SHE STARTS THROWING UP THESE ARE ALL CHRONIC COMPLAINTS FOR PT, STATES THESE SYMPTOMS BEGAN THIS TIME ON Tuesday01/27/19 PT HAS BEEN SEEN HERE ON 01/27 AND 01/28/19 FOR THIS SAME PROBLEM PT WAS GIVEN RX'S FOR PHENERGAN AND BENADRYL, BUT STATES SHE "CAN'T KEEP THEM DOWN" PT STATES SHE HAS VOMITED X 4 TODAY, HAD 1 EPISODE OF DIARRHEA A COUPLE OF DAYS AGO STATES HER WHOLE ABDOMEN AND HER WHOLE CHEST HURT AND MESSNIA NO FEVER STATES SHE HAS NOT URINATED AT ALL TODAY STATES SHE "CAN'T KEEP ANYTHING DOWN" PT STATES SHE HAS TAKEN 4 HOT SHOWERS TODAY, WHICH HELP TEMPORARILY. PT HAS BEEN HERE 8 TIMES SINCE HER FIRST VISIT HERE 10/16/18. ALL FOR THIS EXACT SAME COMPLAINT PT HAS HAD EXTENSIVE WORK-UP'S, INCLUDING EGD ON 11/29/18--SHOWED GASTRIC ULCER, GASTRITIS, ESOPHAGITIS, HIATAL HERNIA. PT HAS BEEN PRESCRIBED MULTIPLE GI MEDICATIONS, NONE OF WHICH IS SHE CURRENTLY TAKING PT SMOKES MARIJUANA DAILY, DRINKS HEAVILY, AND HAS ALSO TESTED + FOR COCAINE ON MORE THAN ONE OCCASION, AND HAS BEEN ADVISED MULTIPLE TIMES THAT HER SYMPTOMS ARE CAUSED BY OR AGGRAVATED BY USE OF THESE. PT AND S.O. ARE NOT WILLING TO BELIEVE THIS CAUSATION. PT HAS STATED THAT SHE HAS BULIMIA, AND SHE USES MARIJUANA "TO HELP WITH HER APPETITE" PT HAD AN APPOINTMENT YESTERDAY AT [facility] FOR THIS PROBLEM/FOLLOW UP FROM ER VISITS, BUT DID NOT SHOW--STATES SHE WAS "TOO SICK" . STATES SHE HAS ANOTHER APPOINTMENT NEXT TUESDAY FOR THIS SAME PROBLEM. DENIES ANY SICK CONTACTS OR SUSPICIOUS FOODS PT WANTING PAIN MEDICATION SOON SHE ARRIVES. LMP 01/10/19. COUPLE OF WEEKS LATE. MALE S.O. WITH VASECTOMY PCP: YOHANNES Allergies and Home Medications Allergies Coded Allergies: No Known Drug Allergies (Unverified , 10/18/18) Home Medications Dicyclomine HCl 20 Mg Tablet, 20 MG PO Q6H Prescribed by: NATHALIA WIGGINS on 01/30/19 175 Diphenhydramine HCl 25 Mg Capsule, 50 MG PO Q4H PRN for NAUSEA/VOMITING-1ST LINE Prescribed by: ZAHIDA MERAZ MD on 01/28/19 1637 Hyoscyamine Sulfate 0.125 Mg Tab.subl, 1-2 TAB SL Q4H Prescribed by: NATHALIA WIGGINS on 12/12/18 0609 Hyoscyamine Sulfate 0.125 Mg Tab.subl, 1-2 TAB SL Q4H Prescribed by: NATHALIA WIGGINS on 01/30/19 175 Naproxen 500 Mg Tablet, 500 MG PO Q12H PRN for PAIN-MILD, (Reported) FILLED #28 11-24-18 Ondansetron 8 Mg Tab.rapdis, 8 MG PO Q6H PRN for NAUSEA/VOMITING Prescribed by: KALYANI RUIZ on 01/27/19 1700 Ondansetron 8 Mg Tab.rapdis, 8 MG PO Q6H Prescribed by: NATHALIA WIGGINS on 01/30/19 175 Ondansetron HCl 4 Mg Tab, 4 MG PO Q4H Prescribed by: VERONICA RUELAS on 12/03/18 1004 Pantoprazole Sodium 40 Mg Tablet.dr, 40 MG PO DAILY Prescribed by: VERONICA RUELAS on 12/03/18 1004 Pantoprazole Sodium 40 Mg Tablet.dr, 40 MG PO DAILY Prescribed by: NATHALIA WIGGINS on 01/30/19 175 Prochlorperazine Maleate 25 Mg Supp.rect, 25 MG RC Q6H Prescribed by: NATHALIA WIGGINS on 12/12/18 0609 Promethazine HCl 25 Mg Tablet, 25 MG PO Q6H PRN for NAUSEA/VOMITING Prescribed by: ZAHIDA MERAZ MD on 01/28/19 1637 Promethazine HCl 25 Mg Supp.rect, 25 MG RC Q4H Prescribed by: NATHALIA WIGGINS on 01/30/191751 Sucralfate 1 Gm/10 Ml Oral.susp, 1 GM PO QID AC AND HS Prescribed by: NATHALIA WIGGINS on 01/30/191751 Patient Home Medication List Home Medication List Reviewed: Yes Review of Systems Review of Systems Constitutional: no symptoms reported EENTM: No Symptoms Reported Respiratory: No Symptoms Reported Cardiovascular: See HPI, Chest Pain Gastrointestinal: See HPI, Abdominal Pain, Constipated, Nausea, Poor Appetite, Poor Fluid Intake, Vomiting Genitourinary: See HPI (DECREASED OUTPUT) Musculoskeletal: no symptoms reported Skin: no symptoms reported Psychiatric/Neurological: No Symptoms Reported Endocrine: No Symptoms Reported Hematologic/Lymphatic: No Symptoms Reported Past Pwcqmoa-Intdyu-Eqhnfc Hx Past Med/Social Hx: Reviewed and Corrections made Patient Social History Alcohol Use: Occasionally Uses (HEAVY AT TIMES) Recreational Drug Use: Yes (THC, COCAINE) Drug of Choice: THC, COCAINE Smoking Status: Current Someday Smoker Type Used: Cigarettes 2nd Hand Smoke Exposure: Yes Recent Foreign Travel: No Contact w/Someone Who Travel: No Recent Infectious Disease Expo: No Recent Hopitalizations: No Immunizations Up To Date Tetanus Booster (TDap): Unknown PED Vaccines UTD: Yes Seasonal Allergies Seasonal Allergies: Yes Past Medical History Surgeries: Yes (EGD/BIOPSY 11/29/18) Respiratory: No Cardiac: No Neurological: No : No (MALE S.O. WITH VASECTOMY) Hx : 2 Hx Para: 2 Hx Total # of Abortions (Sp): 0 ('S. NO COMPLICATIONS) Reproductive Disorders: No Female Reproductive Disorders: Denies Genitourinary: No Gastrointestinal: Yes (CHRONIC NAUSEA/VOMITING/ABDOMINAL PAIN--EGD 11/29/18--GASTRIC ULCER, GASTRITIS, ESOPHAGITIS, HIATAL HERNIA) Gastroesophageal Reflux, Esophagitis, Hiatal Hernia, Ulcer Musculoskeletal: No Endocrine: No HEENT: Yes (POOR DENTITION) Loss of Vision: Denies Cancer: No Psychosocial: Yes (POLYSUBSTANCE ABUSE) Integumentary: No Blood Disorders: No Family Medical History Patient reports no known family medical history. Cancer, Other Conditions/Hx Physical Exam Vital Signs Vital Signs - First Documented 01/30/19 15:41 Temp 36.9 Pulse 74 Resp 18 B/P (MAP) 130/94 (106) Pulse Ox 100 O2 Delivery Room Air Capillary Refill : Less Than 3 Seconds Height/Weight/BMI Height: 5'2.00" Weight: 125lbs. oz. 56.196842qh; 22.00 BMI Method:Stated General Appearance: WD/WN, no apparent distress HEENT: PERRL/EOMI, other (NO UPPER TEETH, FEW LOWER TEETH WITH DECAY. ORAL MUCOSA MOIST. ) Respiratory: normal breath sounds, no respiratory distress, no accessory muscle use, other (DIFFUSE CHEST TENDERNESS) Cardiovascular: regular rate, rhythm, no murmur Gastrointestinal: normal bowel sounds, soft, no organomegaly, no pulsatile mass; No distended, No guarding, No rebound; tenderness (DIFFUSE ABDOMINAL TENDERNESS); No hernia, No mass Extremities: normal inspection, no pedal edema, no calf tenderness, normal capillary refill Back: normal inspection, no CVA tenderness Neurologic/Psychiatric: final dressing cutter II-XII nml as tested, no motor/sensory deficits, alert, oriented x 3 Skin: normal color (DARK SKINNED), warm/dry; No rash Progress/Results/Core Measures Results/Orders Lab Results Laboratory Tests Test 01/30/19 16:05 01/30/19 17:42 Range/Units White Blood Count 7.1 4.3-11.0 10^3/uL Red Blood Count 4.36 4.35-5.85 10^6/uL Hemoglobin 12.6 11.5-16.0 G/DL Hematocrit 36 35-52 % Mean Corpuscular Volume 82 80-99 FL Mean Corpuscular Hemoglobin 29 25-34 PG Mean Corpuscular Hemoglobin Concent 35 32-36 G/DL Red Cell Distribution Width 13.2 10.0-14.5 % Platelet Count 353 130-400 10^3/uL Mean Platelet Volume 10.0 7.4-10.4 FL Neutrophils (%) (Auto) 61 42-75 % Lymphocytes (%) (Auto) 27 12-44 % Monocytes (%) (Auto) 12 0-12 % Eosinophils (%) (Auto) 0 0-10 % Basophils (%) (Auto) 0 0-10 % Neutrophils # (Auto) 4.3 1.8-7.8 X 10^3 Lymphocytes # (Auto) 1.9 1.0-4.0 X 10^3 Monocytes # (Auto) 0.8 0.0-1.0 X 10^3 Eosinophils # (Auto) 0.0 0.0-0.3 10^3/uL Basophils # (Auto) 0.0 0.0-0.1 10^3/uL Prothrombin Time 15.6 H 12.2-14.7 SEC INR Comment 1.2 0.8-1.4 Activated Partial Thromboplast Time 24 24-35 SEC Sodium Level 139 135-145 MMOL/L Potassium Level 3.1 L 3.6-5.0 MMOL/L Chloride Level 103 98-107 MMOL/L Carbon Dioxide Level 21 21-32 MMOL/L Anion Gap 15 H 5-14 MMOL/L Blood Urea Nitrogen 17 7-18 MG/DL Creatinine 0.75 0.60-1.30 MG/DL Estimat Glomerular Filtration Rate > 60 BUN/Creatinine Ratio 23 Glucose Level 103 70-105 MG/DL Calcium Level 9.8 8.5-10.1 MG/DL Corrected Calcium 8.5-10.1 MG/DL Magnesium Level 2.2 1.6-2.4 MG/DL Total Bilirubin 1.2 H 0.1-1.0 MG/DL Aspartate Amino Transf (AST/SGOT) 15 5-34 U/L Alanine Aminotransferase (ALT/SGPT) 12 0-55 U/L Alkaline Phosphatase 44 40-136 U/L Total Protein 8.1 6.4-8.2 GM/DL Albumin 4.8 H 3.2-4.5 GM/DL Amylase Level 54 25-125 U/L Lipase 28 8-78 U/L Serum Test, Qualitative NEGATIVE NEGATIVE Acetaminophen Level < 10 L 10-30 UG/ML Serum Alcohol < 10 <10 MG/DL Urine Color DARK YELLOW Urine Clarity CLEAR Urine pH 6.5 5-9 Urine Specific [place] 1.015 L 1.016-1.022 Urine Protein NEGATIVE NEGATIVE Urine Glucose (UA) 2+ H NEGATIVE Urine Ketones 2+ H NEGATIVE Urine Nitrite NEGATIVE NEGATIVE Urine Bilirubin 1+ H NEGATIVE Urine Urobilinogen 1.0 < = 1.0 MG/DL Urine Leukocyte Esterase NEGATIVE NEGATIVE Urine RBC (Auto) 3+ H NEGATIVE Urine RBC 5-10 H /HPF Urine WBC 2-5 /HPF Urine Squamous Epithelial Cells 5-10 /HPF Urine Crystals PRESENT H /LPF Urine Bacteria TRACE /HPF Urine Casts NONE /LPF Urine Mucus NEGATIVE /LPF Urine Culture Indicated NO Urine Opiates Screen NEGATIVE NEGATIVE Urine Oxycodone Screen NEGATIVE NEGATIVE Urine Methadone Screen NEGATIVE NEGATIVE Urine Propoxyphene Screen NEGATIVE NEGATIVE Urine Barbiturates Screen NEGATIVE NEGATIVE Ur Tricyclic Antidepressants Screen NEGATIVE NEGATIVE Urine Phencyclidine Screen NEGATIVE NEGATIVE Urine Amphetamines Screen NEGATIVE NEGATIVE Urine Methamphetamines Screen NEGATIVE NEGATIVE Urine Benzodiazepines Screen NEGATIVE NEGATIVE Urine Cocaine Screen NEGATIVE NEGATIVE Urine Cannabinoids Screen POSITIVE H NEGATIVE My Orders Orders - NATHALIA WIGGINS DO Ed Iv/Invasive Line Start (01/30/19 16:14) Orthostatic Vital Signs (Adult (01/30/19 16:14) Acetaminophen (01/30/19 16:14) Alcohol (01/30/19 16:14) Amylase (01/30/19 16:14) Cbc With Automated Diff (01/30/19 16:14) Comprehensive Metabolic Panel (01/30/19 16:14) Drug Screen Stat (Urine) (01/30/19 16:14) Hcg,Qualitative Serum (01/30/19 16:14) Lipase (01/30/19 16:14) Magnesium (01/30/19 16:14) Protime With Inr (01/30/19 16:14) Partial Thromboplastin Time (01/30/19 16:14) Ua Culture If Indicated (01/30/19 16:14) Ed Iv/Invasive Line Start (01/30/19 16:14) Lactated Ringers (Lr 1000 Ml Iv Solution (01/30/19 16:14) Ondansetron Injection (Zofran Injectio (01/30/19 16:15) Pantoprazole Injection (Protonix Injecti (01/30/19 16:15) Dicyclomine Injection (Bentyl Injection) (01/30/19 16:45) Hyoscyamine Sl Tablet (Levsin Sl Tablet) (01/30/19 16:45) D5 1/2 Ns W/Kcl 20 Meq/L (Dextrose 5%/0. (01/30/19 16:45) D5 1/2 Ns W/Kcl 20 Meq/L (Dextrose 5%/0. (01/30/19 17:45) Diphenhydramine Injection (Benadryl Inje (01/30/19 17:45) Medications Given in ED Current Medications Medications Dose Ordered Sig/Minerva Route Start Time Stop Time Status Last Admin Dose Admin Dicyclomine HCl 20 mg ONCE ONCE IM 01/30/19 16:45 01/30/19 16:46 DC 01/30/19 16:54 20 MG Diphenhydramine HCl 50 mg ONCE ONCE IVP 01/30/19 17:45 01/30/19 17:46 DC 01/30/19 17:54 50 MG Hyoscyamine Sulfate 0.25 mg ONCE ONCE PO 01/30/19 16:45 01/30/19 16:46 DC 01/30/19 16:53 0.25 MG Lactated Ringer's 1,000 ml @ 0 mls/hr Q0M ONCE IV 01/30/19 16:14 01/30/19 16:16 DC 01/30/19 16:28 1,000 MLS/HR Ondansetron HCl 8 mg ONCE ONCE IVP 01/30/19 16:15 01/30/19 16:16 DC 01/30/19 16:28 8 MG Pantoprazole 40 mg ONCE ONCE IV 01/30/19 16:15 01/30/19 16:16 DC 01/30/19 16:28 40 MG Vital Signs/I&O 01/30/19 15:41 Temp 36.9 Pulse 74 Resp 18 B/P (MAP) 130/94 (106) Pulse Ox 100 O2 Delivery Room Air Blood Pressure Mean: 106 POS Progress Progress Note : Progress Note GIVEN DHAVAL BARNETT BENTYL LEVNINA [id number]--PT NOW WANTS ICE CHIPS/SOMETHING TO DRINK--HAS HAD 2 LITERS OF FLUIDS AND HAS VOIDED--PT ALSO NOW WANTS "SOMETHING SO I CAN GO TO SLEEP" --ADVISED SHE COULD HAVE BENADRYL. PT IS AGREEABLE TO THIS PT GIVEN A TOTAL OF 3 LITERS OF FLUIDS AND PT VOIDED 3 TIMES DURING ER STAY PT HAD NO VOMITING OR DIARRHEA OR FURTHER COMPLAINTS OF PAIN PT STATES SHE IS FEELING BETTER AT DISMISSAL. PT TOLERATED A FEW ICE CHIPS. Departure Impression Primary Impression: Cannabis hyperemesis syndrome concurrent with and due to cannabis abuse Additional Impression: Hypokalemia Disposition: 01 HOME, SELF-CARE Condition: Improved Departure-Patient Inst. Referrals: NO,LOCAL PHYSICIAN (PCP/Family) Primary Care Physician Patient Instructions: Marijuana Use and Addiction (DC), Nausea and Vomiting, Adult (DC), Polysubstance Abuse (DC) Add. Discharge Instructions: CLEAR LIQUIDS, SIPS AT A TIME--WATER, BROTH, JELLO, GATORADE TOMORROW IF YOU ARE BETTER, ADD BRATS DIET TO CLEAR LIQUIDS--BANANAS, RICE, APPLESAUCE, TOAST, SALTINES NO ALCOHOL!!! NO DRUGS, INCLUDING NO MARIJUANA!!! TAKE YOUR PRESCRIBED PROTONIX, PHENERGAN SUPPOSITORIES, CARAFATE, BENADRYL USE CAPSAICIN CREAM TO ABDOMEN NEEDED FOR DISCOMFORT WARM SHOWERS NEEDED FOR DISCOMFORT FOLLOW UP WITH [facility] ON TUESDAY SCHEDULED All discharge instructions reviewed with patient and/or family. Voiced understanding. Scripts Dicyclomine HCl (Dicyclomine HCl) 20 Mg Tablet 20 MG PO Q6H for Abdominal Pain, #20 TAB Prov: NATHALIA WIGGINS DO 01/30/19 Hyoscyamine Sulfate (Levsin-Sl) 0.125 Mg Tab.subl 1-2 TAB SL Q4H for Abdominal Pain, #15 TAB Prov: NATHALIA WIGGINS DO 01/30/19 Ondansetron (Ondansetron Odt) 8 Mg Tab.rapdis 8 MG PO Q6H for Nausea/Vomiting, #10 TAB Prov: NATHALIA WIGGINS DO 01/30/19 Promethazine HCl (Phenergan) 25 Mg Supp.rect 25 MG RC Q4H for Nausea/Vomiting, #10 SUPP.RECT Prov: NATHALIA WIGGINS DO 01/30/19 Sucralfate (Carafate) 1 Gm/10 Ml Oral.susp 1 GM PO QID AC AND HS, #400 ML Prov: NATHALIA WIGGINS DO 01/30/19 Pantoprazole Sodium (Protonix) 40 Mg Tablet.dr 40 MG PO DAILY, #15 TAB Prov: NATHALIA WIGGINS DO 01/30/19 NATHALIA WIGGINS DO Jan 30, 2019 16:39 POS
[2019-01-30 16:41] LABS: ACETAMINOPHEN < 10 UG/ML (10-30); INR 1.2 (0.8-1.4); PROTHROMBIN TIME PATIENT 15.6 SEC (12.2-14.7)
[2019-01-30] MEDS ORDERED: HYOSCYAMINE 0.125 MG (LEVSIN) TAB PO ONE (16:45)
[2019-01-30] MEDS ORDERED: DICYCLOMINE 10 MG/ML (BENTYL) 2 ML AMP IM ONE (16:45)
[2019-01-30] MEDS ORDERED: D5 1/2 NS W/KCL 20 MEQ/L 1,000 ML IV SCH ×2 (16:45→17:45)
[2019-01-30] MEDS ORDERED: diphenhydrAMINE 50 MG/ML INJ (BENADRYL) IVP ONE (17:45)
[2019-01-30 17:49] LABS: BILIRUBIN,URINE 1+ (NEGATIVE); CLARITY,URINE CLEAR; COLOR,URINE DARK YELLOW; GLUCOSE, URINE (UA) 2+ (NEGATIVE); KETONES,URINE 2+ (NEGATIVE); LEUKOCYTE ESTERASE ,URINE NEGATIVE (NEGATIVE); NITRITE,URINE NEGATIVE (NEGATIVE); PH,URINE 6.5 (5-9); PROTEIN,URINE NEGATIVE (NEGATIVE)
[2019-01-30] MEDS ORDERED: SUCR1ORA5 PO (17:52)
[2019-01-30] MEDS ORDERED: PROM25SU43 RC (17:52)
[2019-01-30] MEDS ORDERED: HYOS0.1283 SL (17:52)
[2019-01-30] MEDS ORDERED: ONDA8TAB13 PO (17:52)
[2019-01-30] MEDS ORDERED: DICY20TA10 PO (17:52)
[2019-01-30] MEDS ORDERED: PANT40TA2 PO (17:52)
[2019-01-30 18:02] LABS: AMPHETAMINE SCREEN, URINE NEGATIVE (NEGATIVE); BARBITURATE SCREEN URINE NEGATIVE (NEGATIVE); BENZODIAZEPINES SCREEN URINE NEGATIVE (NEGATIVE); CANNABINOID SCREEN, URINE POSITIVE (NEGATIVE); COCAINE SCREEN URINE NEGATIVE (NEGATIVE); METHADONE STAT NEGATIVE (NEGATIVE); METHAMPHETAMINE SCREEN URINE S NEGATIVE (NEGATIVE); OPIATE SCREEN URINE NEGATIVE (NEGATIVE); OXYCODONE STAT NEGATIVE (NEGATIVE); PROPOXYPHENE STAT NEGATIVE (NEGATIVE); TRICYCLIC ANTIDEPRESSANTS SCRE NEGATIVE (NEGATIVE)
[2019-01-30 18:10] LABS: BACTERIA,URINE TRACE /HPF
[2019-01-30 18:53] VITALS: BP 126/95
== END 2019-01-30 18:53 | disposition home or self-care (01) ==
LOC: EDUNIT# 15:34 → ER 15:35
DX: F12.188 Cannabis abuse with other cannabis-induced disorder (principal); E87.6 Hypokalemia; K21.9 Gastro-esophageal reflux disease without esophagitis; F17.210 Nicotine dependence, cigarettes, uncomplicated
CPT/HCPCS: 36415; 80053; 80306; 80320; 80329; 81000; 82150; 83690; 83735; 84703; 85025; 85610; 85730; 96361; 96372; 96374; 96375

== ENCOUNTER 2019-04-12 11:08 | Emergency (ER) | payer SELFPAY ==
[~2019-04-12] VITALS: Ht 62 cm; Wt 54.4 kg
[~2019-04-12 11:08] MED LIST changes: +DICY20TA10 PO; +PROM25SU43 RC; +SUCR1ORA5 PO
--- NOTE | 2019-04-12 11:20 | ED Cardiac General ---
History of Present Illness General Chief Complaint: Chest Pain Stated Complaint: N/V;CHEST PAIN Source: patient Exam Limitations: no limitations History of Present Illness Date Seen by Provider: Apr 12, 2019 Time Seen by Provider: 11:20 Initial Comments To ER with nausea vomiting and chest pain for about 2 days. Chest pain is right- sided radiates up to her shoulder. History of hyperemesis cannabinoids syndrome, she's been positive for cocaine as well times. She denies any drug use recently and assures me that she has quit smoking marijuana. Timing/Duration: changing over time Severity: moderate Activities at Onset: none NTG SL INVESTMENT EXECUTIVE: No ASA po INVESTMENT EXECUTIVE: No Associated Systoms: Nausea/Vomiting Allergies and Home Medications Allergies Coded Allergies: No Known Drug Allergies (Unverified , 10/18/18) Home Medications Dicyclomine HCl 20 Mg Tablet, 20 MG PO Q6H Prescribed by: NATHALIA WIGGINS on 01/30/19 1752 Diphenhydramine HCl 25 Mg Capsule, 50 MG PO Q4H PRN for NAUSEA/VOMITING-1ST LINE Prescribed by: ZAHIDA MERAZ MD on 01/28/19 1637 Hyoscyamine Sulfate 0.125 Mg Tab.subl, 1-2 TAB SL Q4H Prescribed by: NATHALIA WIGGINS on 12/12/18 0609 Hyoscyamine Sulfate 0.125 Mg Tab.subl, 1-2 TAB SL Q4H Prescribed by: NATHALIA WIGGINS on 01/30/19 1752 Naproxen 500 Mg Tablet, 500 MG PO Q12H PRN for PAIN-MILD, (Reported) FILLED #28 11-24-18 Ondansetron 8 Mg Tab.rapdis, 8 MG PO Q6H PRN for NAUSEA/VOMITING Prescribed by: KALYANI RUIZ on 01/27/19 1700 Ondansetron 8 Mg Tab.rapdis, 8 MG PO Q6H Prescribed by: NATHALIA WIGGINS on 01/30/19 175 Ondansetron HCl 4 Mg Tab, 4 MG PO Q4H Prescribed by: VERONICA RUELAS on 12/03/18 1004 Pantoprazole Sodium 40 Mg Tablet., 40 MG PO DAILY Prescribed by: VERONICA RUELAS on 12/03/18 1004 Pantoprazole Sodium 40 Mg Tablet.dr, 40 MG PO DAILY Prescribed by: NATHALIA WIGGINS on 01/30/191751 Prochlorperazine Maleate 25 Mg Supp.rect, 25 MG RC Q6H Prescribed by: NATHALIA WIGGINS on 12/12/18 0609 Promethazine HCl 25 Mg Tablet, 25 MG PO Q6H PRN for NAUSEA/VOMITING Prescribed by: ZAHIDA MERAZ MD on 01/28/19 1637 Promethazine HCl 25 Mg Supp.rect, 25 MG RC Q4H Prescribed by: NATHALIA WIGGINS on 01/30/191751 Sucralfate 1 Gm/10 Ml Oral.susp, 1 GM PO QID AC AND HS Prescribed by: NATHALIA WIGGINS on 01/30/191751 Patient Home Medication List Home Medication List Reviewed: Yes Review of Systems Review of Systems Constitutional: see HPI EENTM: See HPI Respiratory: No Symptoms Reported Cardiovascular: See HPI, Chest Pain Gastrointestinal: See HPI, Nausea, Vomiting Genitourinary: No Symptoms Reported Musculoskeletal: no symptoms reported Skin: no symptoms reported Psychiatric/Neurological: No Symptoms Reported Endocrine: No Symptoms Reported Hematologic/Lymphatic: No Symptoms Reported Past Rwqjqul-Uokrne-Ndcuql Hx Patient Social History Drug of Choice: THC, COCAINE Type Used: Cigarettes 2nd Hand Smoke Exposure: Yes Recent Foreign Travel: No Contact w/Someone Who Travel: No Recent Hopitalizations: No Immunizations Up To Date Tetanus Booster (TDap): Unknown PED Vaccines UTD: Yes Seasonal Allergies Seasonal Allergies: Yes Past Medical History Surgeries: Yes (EGD/BIOPSY 11/29/18) Respiratory: No Cardiac: No Neurological: No Reproductive Disorders: No Female Reproductive Disorders: Denies Genitourinary: No Gastrointestinal: Yes Gastroesophageal Reflux, Esophagitis, Hiatal Hernia, Ulcer Musculoskeletal: No Endocrine: No HEENT: Yes (POOR DENTITION) Loss of Vision: Denies Cancer: No Psychosocial: Yes (POLYSUBSTANCE ABUSE) Integumentary: No Blood Disorders: No Family Medical History Patient reports no known family medical history. Cancer, Other Conditions/Hx Physical Exam Vital Signs Vital Signs - First Documented 04/12/19 11:21 Temp 38.0 Pulse 76 Resp 23 B/P (MAP) 154/96 (115) O2 Delivery Room Air Capillary Refill : Height, Weight, BMI Height: 5'2.00" Weight: 125lbs. oz. [id number]; 22.00 BMI Method:Stated General Appearance: No Apparent Distress, WD/WN, Thin HEENT: PERRL/EOMI, TMs Normal Neck: Full Range of Motion, Normal Inspection Respiratory: No Accessory Muscle Use, No Respiratory Distress Cardiovascular: Regular Rate, Rhythm, Normal Peripheral Pulses Gastrointestinal: Non Tender, Soft Extremity: Normal Capillary Refill Neurologic/Psychiatric: Alert, Oriented x3 Skin: Normal Color, Warm/Dry Progress/Results/Core Measures Results/Orders Lab Results Laboratory Tests Test 04/12/19 11:30 04/12/19 11:35 Range/Units White Blood Count 6.5 4.3-11.0 10^3/uL Red Blood Count 4.24 L 4.35-5.85 10^6/uL Hemoglobin 12.2 11.5-16.0 G/DL Hematocrit 35 35-52 % Mean Corpuscular Volume 82 80-99 FL Mean Corpuscular Hemoglobin 29 25-34 PG Mean Corpuscular Hemoglobin Concent 35 32-36 G/DL Red Cell Distribution Width 13.2 10.0-14.5 % Platelet Count 364 130-400 10^3/uL Mean Platelet Volume 9.9 7.4-10.4 FL Neutrophils (%) (Auto) 77 H 42-75 % Lymphocytes (%) (Auto) 19 12-44 % Monocytes (%) (Auto) 4 0-12 % Eosinophils (%) (Auto) 0 0-10 % Basophils (%) (Auto) 0 0-10 % Neutrophils # (Auto) 5.0 1.8-7.8 X 10^3 Lymphocytes # (Auto) 1.2 1.0-4.0 X 10^3 Monocytes # (Auto) 0.3 0.0-1.0 X 10^3 Eosinophils # (Auto) 0.0 0.0-0.3 10^3/uL Basophils # (Auto) 0.0 0.0-0.1 10^3/uL Sodium Level 139 135-145 MMOL/L Potassium Level 3.6 3.6-5.0 MMOL/L Chloride Level 105 98-107 MMOL/L Carbon Dioxide Level 20 L 21-32 MMOL/L Anion Gap 14 5-14 MMOL/L Blood Urea Nitrogen 15 7-18 MG/DL Creatinine 0.78 0.60-1.30 MG/DL Estimat Glomerular Filtration Rate > 60 BUN/Creatinine Ratio 19 Glucose Level 127 H 70-105 MG/DL Calcium Level 10.1 8.5-10.1 MG/DL Corrected Calcium 8.5-10.1 MG/DL Total Bilirubin 0.8 0.1-1.0 MG/DL Aspartate Amino Transf (AST/SGOT) 19 5-34 U/L Alanine Aminotransferase (ALT/SGPT) 17 0-55 U/L Alkaline Phosphatase 53 40-136 U/L Troponin I < 0.028 <0.028 NG/ML Total Protein 8.5 H 6.4-8.2 GM/DL Albumin 5.1 H 3.2-4.5 GM/DL Lipase 15 8-78 U/L Serum Test, Qualitative NEGATIVE NEGATIVE Urine Color LESTER H Urine Clarity CLEAR Urine pH 6.0 5-9 Urine Specific [place] >=1.030 1.016-1.022 Urine Protein 1+ H NEGATIVE Urine Glucose (UA) NEGATIVE NEGATIVE Urine Ketones 1+ H NEGATIVE Urine Nitrite NEGATIVE NEGATIVE Urine Bilirubin NEGATIVE NEGATIVE Urine Urobilinogen 0.2 < = 1.0 MG/DL Urine Leukocyte Esterase NEGATIVE NEGATIVE Urine RBC (Auto) 1+ H NEGATIVE Urine RBC 0-2 /HPF Urine WBC RARE /HPF Urine Squamous Epithelial Cells 5-10 /HPF Urine Crystals PRESENT H /LPF Urine Amorphous Sediment MOD DEXTER URATES H /LPF Urine Bacteria TRACE /HPF Urine Casts NONE /LPF Urine Mucus LARGE H /LPF Urine Culture Indicated NO Urine Opiates Screen NEGATIVE NEGATIVE Urine Oxycodone Screen NEGATIVE NEGATIVE Urine Methadone Screen NEGATIVE NEGATIVE Urine Propoxyphene Screen NEGATIVE NEGATIVE Urine Barbiturates Screen NEGATIVE NEGATIVE Ur Tricyclic Antidepressants Screen POSITIVE H NEGATIVE Urine Phencyclidine Screen POSITIVE H NEGATIVE Urine Amphetamines Screen NEGATIVE NEGATIVE Urine Methamphetamines Screen NEGATIVE NEGATIVE Urine Benzodiazepines Screen NEGATIVE NEGATIVE Urine Cocaine Screen NEGATIVE NEGATIVE Urine Cannabinoids Screen POSITIVE H NEGATIVE My Orders Orders - KALYANI RUIZ CARPET FINISHING SUPERVISOR Cbc With Automated Diff (04/12/19 11:16) Comprehensive Metabolic Panel (04/12/19 11:16) Lipase (04/12/19 11:16) Hcg,Qualitative Serum (04/12/19 11:16) Ua Culture If Indicated (04/12/19 11:16) Drug Screen Stat (Urine) (04/12/19 11:16) Ed Iv/Invasive Line Start (04/12/19 11:16) Ketorolac Injection (Toradol Injection) (04/12/19 11:30) Chest 1 View, Ap/Pa Only (04/12/19 11:16) Ekg Tracing (04/12/19 11:16) Troponin I (04/12/19 11:16) Ns Iv 1000 Ml (Sodium Chloride 0.9%) (04/12/19 11:30) Diphenhydramine Injection (Benadryl Inje (04/12/19 11:30) Haloperidol Injection (Haldol Injectio (04/12/19 11:30) Medications Given in ED Current Medications Medications Dose Ordered Sig/Minerva Route Start Time Stop Time Status Last Admin Dose Admin Diphenhydramine HCl 25 mg ONCE ONCE IVP 04/12/19 11:30 04/12/19 11:31 DC 04/12/19 11:44 25 MG Haloperidol Lactate 5 mg ONCE ONCE IV 04/12/19 11:30 04/12/19 11:31 DC 04/12/19 11:44 5 MG Ketorolac Tromethamine 30 mg ONCE ONCE IVP 04/12/19 11:30 04/12/19 11:31 DC 04/12/19 11:44 30 MG Vital Signs/I&O 04/12/19 04/12/19 11:21 11:21 Temp 38.0 Pulse 76 Resp 23 B/P (MAP) 154/96 (115) O2 Delivery Room Air Departure Impression Primary Impression: Polysubstance abuse Additional Impression: Nausea & vomiting Disposition: 01 HOME, SELF-CARE Condition: Stable Departure-Patient Inst. Decision time for Depature: 12:01 Referrals: NO,LOCAL PHYSICIAN (PCP/Family) Primary Care Physician Patient Instructions: Polysubstance Abuse, Nausea and Vomiting, Adult Add. Discharge Instructions: Discontinuation of drug use with help with symptoms tremendously. This includes marijuana. All discharge instructions reviewed with patient and/or family. Voiced understanding. Scripts Prochlorperazine Maleate (Compazine) 10 Mg Tablet 10 MG PO TID, #20 TAB Prov: KALYANI RUIZ APRN 04/12/19 KALYANI RUIZ APRN Apr 12, 2019 11:20
[2019-04-12] MEDS ORDERED: KETOROLAC 30 MG/ML VIAL IVP ONE (11:30)
[2019-04-12] MEDS ORDERED: NS IV 1000 ML 1,000 ML IV SCH (11:30)
[2019-04-12] MEDS ORDERED: HALOPERIDOL 5 MG/ML (HALDOL) AMP IV ONE (11:30)
[2019-04-12] MEDS ORDERED: diphenhydrAMINE 50 MG/ML INJ (BENADRYL) IVP ONE (11:30)
[2019-04-12 11:39] LABS: BASOPHILS % (AUTO) 0 % (0-10); EOSINOPHILS % (AUTO) 0 % (0-10); HEMATOCRIT 35 % (35-52); HEMOGLOBIN 12.2 G/DL (11.5-16.0); LYMPHOCYTES # (AUTO) 1.2 X 10^3 (1.0-4.0); LYMPHOCYTES % (AUTO) 19 % (12-44); MEAN CORPUSCULAR HEMOGLOBIN 29 PG (25-34); MEAN CORPUSCULAR HGB CONC 35 G/DL (32-36); MEAN CORPUSCULAR VOLUME 82 FL (80-99); MEAN PLATELET VOLUME 9.9 FL (7.4-10.4); MONOCYTES # (AUTO) 0.3 X 10^3 (0.0-1.0); MONOCYTES % (AUTO) 4 % (0-12); NEUTROPHILS % (AUTO) 77 % (42-75); PLATELET COUNT 364 10^3/uL (130-400); RED CELL DISTRIBUTION WIDTH 13.2 % (10.0-14.5); WHITE BLOOD COUNT 6.5 10^3/uL (4.3-11.0)
[2019-04-12 11:40] LABS: BILIRUBIN,URINE NEGATIVE (NEGATIVE); CLARITY,URINE CLEAR; COLOR,URINE AMBER; GLUCOSE, URINE (UA) NEGATIVE (NEGATIVE); KETONES,URINE 1+ (NEGATIVE); LEUKOCYTE ESTERASE ,URINE NEGATIVE (NEGATIVE); NITRITE,URINE NEGATIVE (NEGATIVE); PROTEIN,URINE 1+ (NEGATIVE)
[2019-04-12 11:51] LABS: BACTERIA,URINE TRACE /HPF; RBC,URINE 0-2 /HPF; WBC,URINE RARE /HPF
[2019-04-12 11:52] LABS: AMORPHOUS SEDIMENT,UR MOD AMOR URATES /LPF
[2019-04-12 11:56] LABS: AMPHETAMINE SCREEN, URINE NEGATIVE (NEGATIVE); BARBITURATE SCREEN URINE NEGATIVE (NEGATIVE); BENZODIAZEPINES SCREEN URINE NEGATIVE (NEGATIVE); CANNABINOID SCREEN, URINE POSITIVE (NEGATIVE); COCAINE SCREEN URINE NEGATIVE (NEGATIVE); METHADONE STAT NEGATIVE (NEGATIVE); METHAMPHETAMINE SCREEN URINE S NEGATIVE (NEGATIVE); OPIATE SCREEN URINE NEGATIVE (NEGATIVE); OXYCODONE STAT NEGATIVE (NEGATIVE); PROPOXYPHENE STAT NEGATIVE (NEGATIVE); TRICYCLIC ANTIDEPRESSANTS SCRE POSITIVE (NEGATIVE)
--- NOTE | 2019-04-12 11:57 | Diagnostic Imaging Report ---
Indication: Chest pain after vomiting x4 days Portable chest 11:50 AM Heart size and pulmonary vascularity are normal. Lungs are clear. There are no effusions or pneumothoraces. There is no pneumomediastinum. IMPRESSION: Negative chest Dictated by: Dictated on workstation # [id number]
[2019-04-12 12:02] LABS: ALANINE AMINOTRANSFERASE 17 U/L (0-55); ALBUMIN 5.1 GM/DL (3.2-4.5); ALKALINE PHOSPHATASE 53 U/L (40-136); BILIRUBIN,TOTAL 0.8 MG/DL (0.1-1.0); BUN/CREATININE RATIO 19; CALCIUM 10.1 MG/DL (8.5-10.1); CARBON DIOXIDE 20 MMOL/L (21-32); CHLORIDE 105 MMOL/L (98-107); CREATININE SERUM 0.78 MG/DL (0.60-1.30); GFR ESTIMATED > 60; GLUCOSE 127 MG/DL (70-105); LIPASE 15 U/L (8-78); POTASSIUM 3.6 MMOL/L (3.6-5.0); SODIUM 139 MMOL/L (135-145); TOTAL PROTEIN 8.5 GM/DL (6.4-8.2)
[2019-04-12] MEDS ORDERED: PROC-1 PO (12:14)
[2019-04-12 12:29] VITALS: BP 154/96
== END 2019-04-12 12:30 | disposition home or self-care (01) ==
LOC: EDUNIT# 11:08 → ER 11:10
DX: F12.10 Cannabis abuse, uncomplicated (principal); F14.10 Cocaine abuse, uncomplicated; R11.2 Nausea with vomiting, unspecified; K21.9 Gastro-esophageal reflux disease without esophagitis; Z77.22 Contact with and (suspected) exposure to environmental tobacco smoke (acute) (chronic)
CPT/HCPCS: 36415; 71045; 80053; 80306; 81000; 83690; 84484; 84703; 85025; 93005

== ENCOUNTER 2019-06-17 07:38 | Emergency (ER) | payer SELFPAY ==
[~2019-06-17] VITALS: Ht 157 cm; Wt 53.5 kg
[~2019-06-17 07:38] MED LIST changes: +ONDA-105 PO; -ONDA4TAB10 PO; +PROC-1 PO
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
[2019-06-17] MEDS ORDERED: LACTATED RINGERS 1,000 ML IV ONE ×2 (07:58→08:57)
[2019-06-17] MEDS ORDERED: ONDANSETRON 4 MG/2 ML (SDV) Z0FRAN IVP ONE (08:00)
[2019-06-17 08:26] LABS: BASOPHILS % (AUTO) 1 % (0-10); EOSINOPHILS % (AUTO) 0 % (0-10); HEMATOCRIT 41 % (35-52); HEMOGLOBIN 14.5 G/DL (11.5-16.0); LYMPHOCYTES # (AUTO) 2.6 X 10^3 (1.0-4.0); LYMPHOCYTES % (AUTO) 33 % (12-44); MEAN CORPUSCULAR HEMOGLOBIN 29 PG (25-34); MEAN CORPUSCULAR HGB CONC 36 G/DL (32-36); MEAN CORPUSCULAR VOLUME 82 FL (80-99); MEAN PLATELET VOLUME 10.7 FL (7.4-10.4); MONOCYTES # (AUTO) 0.9 X 10^3 (0.0-1.0); MONOCYTES % (AUTO) 12 % (0-12); NEUTROPHILS # (AUTO) 4.4 X 10^3 (1.8-7.8); NEUTROPHILS % (AUTO) 55 % (42-75); PLATELET COUNT 377 10^3/uL (130-400); RED CELL DISTRIBUTION WIDTH 13.5 % (10.0-14.5)
[2019-06-17 08:28] LABS: CLARITY,URINE CLEAR; COLOR,URINE YELLOW; GLUCOSE, URINE (UA) NEGATIVE (NEGATIVE); KETONES,URINE 2+ (NEGATIVE); LEUKOCYTE ESTERASE ,URINE NEGATIVE (NEGATIVE); NITRITE,URINE NEGATIVE (NEGATIVE); PROTEIN,URINE 1+ (NEGATIVE)
[2019-06-17 08:41] LABS: AMPHETAMINE SCREEN, URINE NEGATIVE (NEGATIVE); BARBITURATE SCREEN URINE NEGATIVE (NEGATIVE); BENZODIAZEPINES SCREEN URINE NEGATIVE (NEGATIVE); CANNABINOID SCREEN, URINE POSITIVE (NEGATIVE); COCAINE SCREEN URINE NEGATIVE (NEGATIVE); METHADONE STAT NEGATIVE (NEGATIVE); METHAMPHETAMINE SCREEN URINE S NEGATIVE (NEGATIVE); OPIATE SCREEN URINE NEGATIVE (NEGATIVE); OXYCODONE STAT NEGATIVE (NEGATIVE); PROPOXYPHENE STAT NEGATIVE (NEGATIVE); TRICYCLIC ANTIDEPRESSANTS SCRE NEGATIVE (NEGATIVE)
[2019-06-17 08:48] LABS: ALANINE AMINOTRANSFERASE 12 U/L (0-55); ALKALINE PHOSPHATASE 44 U/L (40-136); BILIRUBIN,TOTAL 1.2 MG/DL (0.1-1.0); BUN/CREATININE RATIO 25; CALCIUM 9.6 MG/DL (8.5-10.1); CARBON DIOXIDE 21 MMOL/L (21-32); CHLORIDE 94 MMOL/L (98-107); CREATININE SERUM 1.07 MG/DL (0.60-1.30); GFR ESTIMATED > 60; GLUCOSE 92 MG/DL (70-105); LIPASE 28 U/L (8-78); MAGNESIUM 2.7 MG/DL (1.6-2.4); POTASSIUM 3.4 MMOL/L (3.6-5.0); SODIUM 133 MMOL/L (135-145); TOTAL PROTEIN 8.8 GM/DL (6.4-8.2)
[2019-06-17 08:53] LABS: BACTERIA,URINE TRACE /HPF; BILIRUBIN,URINE 2+ (NEGATIVE); RBC,URINE RARE /HPF; SQUAMOUS EPITHELIAL CELL,UR 0-2 /HPF; WBC,URINE 0-2 /HPF
--- NOTE | 2019-06-17 09:20 | Diagnostic Imaging Report ---
Indication: Fall. Findings: Thoracic vertebral statures are normal. No acute or suspicious appearing endplate irregularity. No abnormal paraspinal density radiographically apparent. The visualized posterior ribs unremarkable. The alignment normal. There are vertical lucencies involving the mid segments of the bilateral L1 transverse processes, this may be ununited tip apophyses however the possibility of nondisplaced bilateral lumbar transverse process fractures in the appropriate clinical scenario could not be excluded, correlate with the site of pain. Impression: 1. Normal appearance of the thoracic spine anatomically aligned. 2. Indeterminate lucencies at the bilateral L1 transverse processes developmental variant with unfused tip apophyses versus nondisplaced bilateral transverse process injuries. The latter atypical outside of the setting of a substantial trauma but correlate with any upper lumbar pain if present. Dictated by: Dictated on workstation # [id number]
--- NOTE | 2019-06-17 09:22 | Diagnostic Imaging Report ---
INDICATION: Fall, trauma to right shoulder. FINDINGS: 3 views. Right rib shows no fractures. The right lung is well-aerated and clear. No pneumothorax or pleural effusion. There is question of a fracture involving the transverse process of L1 on the right. IMPRESSION: 1. Question of transverse process fracture nondisplaced of L1 on the right versus nonunited apophysis. Clinical correlation for focal pain.. 2. No rib fracture is demonstrated. Dictated by: Dictated on workstation # [id number]
--- NOTE | 2019-06-17 09:58 | ED Fall/Injury ---
General Chief Complaint: Abdominal/GI Problems Stated Complaint: FALL - UPPER BACK PAIN / VOMITING Nursing Triage Note: PT AMBULATED TO ROOM 3 W CO OF R SHOULDER PAIN FROM FALL OFF OF DANCE POLE ON TUESDAY OF LAST WEEK AND N/V SINCE. DENIES HITTING HEAD Source: patient Exam Limitations: no limitations History of Present Illness Date Seen by Provider: Jun 17, 2019 Time Seen by Provider: 07:50 Initial Comments This 23-year-old young lady presents to the emergency room with pain medial to the right shoulder after falling off of her dance pole while practicing pole d ancing at her house. She was inverted at the time and slipped off the pole because it was sweaty. She also complains of nausea and vomiting the past few days. She does frequently smoke marijuana and has been known to have nausea and vomiting related to that. She denies any significant head injury or other signs or symptoms of concussion. She is notably tachycardic on arrival. Allergies and Home Medications Allergies Coded Allergies: No Known Drug Allergies (Unverified , 10/18/18) Home Medications Dicyclomine HCl 20 Mg Tablet, 20 MG PO Q6H Prescribed by: NATHALIA WIGGINS on 01/30/19 175 Diphenhydramine HCl 25 Mg Capsule, 50 MG PO Q4H PRN for NAUSEA/VOMITING-1ST LINE Prescribed by: ZAHIDA MERAZ MD on 01/28/19 1637 Hyoscyamine Sulfate 0.125 Mg Tab.subl, 1-2 TAB SL Q4H Prescribed by: NATHALIA WIGGINS on 12/12/18 0609 Hyoscyamine Sulfate 0.125 Mg Tab.subl, 1-2 TAB SL Q4H Prescribed by: NATHALIA WIGGINS on 01/30/19 1752 Naproxen 500 Mg Tablet, 500 MG PO Q12H PRN for PAIN-MILD, (Reported) FILLED #28 11-24-18 Ondansetron 8 Mg Tab.rapdis, 8 MG PO Q6H PRN for NAUSEA/VOMITING Prescribed by: KALYANI RUIZ on 01/27/19 1700 Ondansetron 8 Mg Tab.rapdis, 8 MG PO Q6H Prescribed by: NATHALIA WIGGINS on 01/30/19 1752 Ondansetron HCl 4 Mg Tab, 4 MG PO Q4H Prescribed by: VERONICA RUELAS on 12/03/18 1004 Pantoprazole Sodium 40 Mg Tablet.dr, 40 MG PO DAILY Prescribed by: VERONICA RUELAS on 12/03/18 1004 Pantoprazole Sodium 40 Mg Tablet.dr, 40 MG PO DAILY Prescribed by: NATHALIA WIGGINS on 01/30/19 175 Prochlorperazine Maleate 25 Mg Supp.rect, 25 MG RC Q6H Prescribed by: NATHALIA WIGGINS on 12/12/18 0609 Prochlorperazine Maleate 10 Mg Tablet, 10 MG PO TID Prescribed by: KALYANI RUIZ on 04/12/19 1214 Promethazine HCl 25 Mg Tablet, 25 MG PO Q6H PRN for NAUSEA/VOMITING Prescribed by: ZAHIDA MERAZ MD on 01/28/19 1637 Promethazine HCl 25 Mg Supp.rect, 25 MG RC Q4H Prescribed by: NATHALIA WIGGINS on 01/30/19 175 Sucralfate 1 Gm/10 Ml Oral.susp, 1 GM PO QID AC AND HS Prescribed by: NATHALIA WIGGINS on 01/30/19 175 Tramadol HCl 50 Mg Tablet, 50 MG PO Q6H PRN for PAIN-MODERATE (5-7) Prescribed by: SHARRI COBB on 06/17/19 1009 Patient Home Medication List Home Medication List Reviewed: Yes Review of Systems Review of Systems Constitutional: no symptoms reported Eyes: No Symptoms Reported Ears, Nose, Mouth, Throat: no symptoms reported Respiratory: no symptoms reported Cardiovascular: no symptoms reported Gastrointestinal: see HPI Genitourinary: no symptoms reported : No Musculoskeletal: see HPI Skin: no symptoms reported Psychiatric/Neurological: No Symptoms Reported Past Yudcduq-Livzjx-Bjgcpe Hx Past Med/Social Hx: Reviewed Nursing Past Med/Soc Hx Patient Social History Alcohol Use: Denies Use Recreational Drug Use: Yes Drug of Choice: THC Smoking Status: Former Smoker Type Used: Cigarettes 2nd Hand Smoke Exposure: Yes Recent Foreign Travel: No Contact w/Someone Who Travel: No Recent Infectious Disease Expo: No Recent Hopitalizations: No Physical Abuse: No Sexual Abuse: No Immunizations Up To Date Tetanus Booster (TDap): Unknown PED Vaccines UTD: Yes Seasonal Allergies Seasonal Allergies: Yes Past Medical History Surgeries: Yes (EGD/BIOPSY 11/29/18) Respiratory: No Cardiac: No Neurological: No Last Menstrual Period: Jun 16, 2019 Reproductive Disorders: No Female Reproductive Disorders: Denies Genitourinary: No Gastrointestinal: Yes Gastroesophageal Reflux, Esophagitis, Hiatal Hernia, Ulcer Musculoskeletal: No Endocrine: No HEENT: Yes (POOR DENTITION) Loss of Vision: Denies Cancer: No Psychosocial: Yes (POLYSUBSTANCE ABUSE) Integumentary: No Blood Disorders: No Family Medical History Patient reports no known family medical history. Cancer, Other Conditions/Hx Physical Exam Vital Signs Vital Signs - First Documented 06/17/19 07:47 Temp 36.4 Pulse 139 Resp 18 B/P (MAP) 118/81 (93) Pulse Ox 96 Capillary Refill : Less Than 3 Seconds Height, Weight, BMI Height: 5'2.00" Weight: 125lbs. oz. [id number]; 21.00 BMI Method:Stated General Appearance: WD/WN, no apparent distress HEENT: PERRL/EOMI, normal ENT inspection, pharynx normal Neck: normal inspection Cardiovascular: regular rate, rhythm, no edema, no murmur Respiratory: lungs clear, normal breath sounds, no respiratory distress, no accessory muscle use Gastrointestinal: normal bowel sounds, non tender, soft Back: normal inspection, no vertebral tenderness, other (focus of tenderness is between the right scapula and thoracic spine. No visible injury in this area) Extremities: normal inspection, no pedal edema Neurologic/Psychiatric: personnel assistant II-XII nml as tested, no motor/sensory deficits, alert, normal mood/affect, oriented x 3 Skin: normal color, warm/dry Progress/Results/Core Measures Results/Orders Lab Results Laboratory Tests Test 06/17/19 08:10 Range/Units White Blood Count 8.0 4.3-11.0 10^3/uL Red Blood Count 4.99 4.35-5.85 10^6/uL Hemoglobin 14.5 11.5-16.0 G/DL Hematocrit 41 35-52 % Mean Corpuscular Volume 82 80-99 FL Mean Corpuscular Hemoglobin 29 25-34 PG Mean Corpuscular Hemoglobin Concent 36 32-36 G/DL Red Cell Distribution Width 13.5 10.0-14.5 % Platelet Count 377 130-400 10^3/uL Mean Platelet Volume 10.7 H 7.4-10.4 FL Neutrophils (%) (Auto) 55 42-75 % Lymphocytes (%) (Auto) 33 12-44 % Monocytes (%) (Auto) 12 0-12 % Eosinophils (%) (Auto) 0 0-10 % Basophils (%) (Auto) 1 0-10 % Neutrophils # (Auto) 4.4 1.8-7.8 X 10^3 Lymphocytes # (Auto) 2.6 1.0-4.0 X 10^3 Monocytes # (Auto) 0.9 0.0-1.0 X 10^3 Eosinophils # (Auto) 0.0 0.0-0.3 10^3/uL Basophils # (Auto) 0.0 0.0-0.1 10^3/uL Urine Color YELLOW Urine Clarity CLEAR Urine pH 6.0 5-9 Urine Specific [place] 1.025 H 1.016-1.022 Urine Protein 1+ H NEGATIVE Urine Glucose (UA) NEGATIVE NEGATIVE Urine Ketones 2+ H NEGATIVE Urine Nitrite NEGATIVE NEGATIVE Urine Bilirubin 2+ H NEGATIVE Urine Urobilinogen 1.0 < = 1.0 MG/DL Urine Leukocyte Esterase NEGATIVE NEGATIVE Urine RBC (Auto) 3+ H NEGATIVE Urine RBC RARE /HPF Urine WBC 0-2 /HPF Urine Squamous Epithelial Cells 0-2 /HPF Urine Crystals NONE /LPF Urine Bacteria TRACE /HPF Urine Casts NONE /LPF Urine Mucus NEGATIVE /LPF Urine Culture Indicated NO Sodium Level 133 L 135-145 MMOL/L Potassium Level 3.4 L 3.6-5.0 MMOL/L Chloride Level 94 L 98-107 MMOL/L Carbon Dioxide Level 21 21-32 MMOL/L Anion Gap 18 H 5-14 MMOL/L Blood Urea Nitrogen 27 H 7-18 MG/DL Creatinine 1.07 0.60-1.30 MG/DL Estimat Glomerular Filtration Rate > 60 BUN/Creatinine Ratio 25 Glucose Level 92 70-105 MG/DL Calcium Level 9.6 8.5-10.1 MG/DL Corrected Calcium 8.5-10.1 MG/DL Magnesium Level 2.7 H 1.6-2.4 MG/DL Total Bilirubin 1.2 H 0.1-1.0 MG/DL Aspartate Amino Transf (AST/SGOT) 16 5-34 U/L Alanine Aminotransferase (ALT/SGPT) 12 0-55 U/L Alkaline Phosphatase 44 40-136 U/L Total Protein 8.8 H 6.4-8.2 GM/DL Albumin 5.0 H 3.2-4.5 GM/DL Lipase 28 8-78 U/L Serum Test, Qualitative NEGATIVE NEGATIVE Urine Opiates Screen NEGATIVE NEGATIVE Urine Oxycodone Screen NEGATIVE NEGATIVE Urine Methadone Screen NEGATIVE NEGATIVE Urine Propoxyphene Screen NEGATIVE NEGATIVE Urine Barbiturates Screen NEGATIVE NEGATIVE Ur Tricyclic Antidepressants Screen NEGATIVE NEGATIVE Urine Phencyclidine Screen NEGATIVE NEGATIVE Urine Amphetamines Screen NEGATIVE NEGATIVE Urine Methamphetamines Screen NEGATIVE NEGATIVE Urine Benzodiazepines Screen NEGATIVE NEGATIVE Urine Cocaine Screen NEGATIVE NEGATIVE Urine Cannabinoids Screen POSITIVE H NEGATIVE My Orders Orders - SHARRI FONG MD Cbc With Automated Diff (06/17/19 07:58) Comprehensive Metabolic Panel (06/17/19 07:58) Drug Screen Stat (Urine) (06/17/19 07:58) Hcg,Qualitative Serum (06/17/19 07:58) Lipase (06/17/19 07:58) Magnesium (06/17/19 07:58) Ua Culture If Indicated (06/17/19 07:58) Ed Iv/Invasive Line Start (06/17/19 07:58) Lactated Ringers (Lr 1000 Ml Iv Solution (06/17/19 07:58) Ondansetron Injection (Zofran Injectio (06/17/19 08:00) Ribs, Right 2-3 Views (06/17/19 07:58) Thoracic Spine, 2 Views Only (06/17/19 07:58) Lactated Ringers (Lr 1000 Ml Iv Solution (06/17/19 08:57) Ketorolac Injection (Toradol Injection) (06/17/19 10:15) Orphenadrine Injection (Norflex Injectio (06/17/19 10:15) Medications Given in ED Current Medications Medications Dose Ordered Sig/Minerva Route Start Time Stop Time Status Last Admin Dose Admin Ketorolac Tromethamine 15 mg ONCE ONCE IVP 06/17/19 10:15 06/17/19 10:16 DC 06/17/19 10:14 15 MG Lactated Ringer's 1,000 ml @ 0 mls/hr Q0M ONCE IV 06/17/19 07:58 06/17/19 08:01 DC 06/17/19 08:16 1,000 MLS/HR Lactated Ringer's 1,000 ml @ 0 mls/hr Q0M ONCE IV 06/17/19 08:57 06/17/19 08:58 DC 06/17/19 09:31 1,000 MLS/HR Ondansetron HCl 8 mg ONCE ONCE IVP 06/17/19 08:00 06/17/19 08:01 DC 06/17/19 08:16 8 MG Orphenadrine Citrate 60 mg ONCE ONCE IV 06/17/19 10:15 06/17/19 10:16 DC 06/17/19 10:16 60 MG Vital Signs/I&O 06/17/19 06/17/19 07:47 10:20 Temp 36.4 Pulse 139 88 Resp 18 18 B/P (MAP) 118/81 (93) 112/68 (93) Pulse Ox 96 96 Blood Pressure Mean: 93 Progress Progress Note : Progress Note Patient was hydrated with 2 L of LR. Zofran was used for nausea. X-rays revealed no rib fractures or pneumothorax. Views of the shoulder and x-rays were unremarkable. There is a questionable transverse process fracture at L1. However, the left transverse process has a similar appearance and patient's tenderness seems to be higher than L1. 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 Patient is being treated with Toradol and Norflex. Diagnostic Imaging Diagonstic Imaging: Xray Plain Films/CT/US/NM/MRI: chest Comments Rib x-ray viewed by me and report reviewed. See report below: NAME: ANNALEE PICKENS [facility] REC#: [id number] PT STATUS: REG ER : 1995 PHYSICIAN: SHARRI FONG MD ADMIT DATE: 06/17/19/ER Draft Date of Exam:06/17/19 RIBS, RIGHT 2-3 VIEWS INDICATION: Fall, trauma to right shoulder. FINDINGS: 3 views. Right rib shows no fractures. The right lung is well-aerated and clear. No pneumothorax or pleural effusion. There is question of a fracture involving the transverse process of L1 on the right. IMPRESSION: 1. Question of transverse process fracture nondisplaced of L1 on the right versus nonunited apophysis. Clinical correlation for focal pain.. 2. No rib fracture is demonstrated. Dictated on workstation # [id number] Dict: 06/17/19916 Trans: 06/17/19923 [facility] [id number] Interpreted by: MARISA TORRES MD Diagonstic Imaging: Xray Plain Films/CT/US/NM/MRI: other (thoracic spine) Comments Thoracic spine x-ray viewed by me and report reviewed. See report below: NAME: ANNALEE PICKENS [facility] REC#: [id number] PT STATUS: REG ER : 1995 PHYSICIAN: SHARRI FONG MD ADMIT DATE: 06/17/19/ER Draft Date of Exam:06/17/19 THORACIC SPINE, 2 VIEWS ONLY Indication: Fall. Findings: Thoracic vertebral statures are normal. No acute or suspicious appearing endplate irregularity. No abnormal paraspinal density radiographically apparent. The visualized posterior ribs unremarkable. The alignment normal. There are vertical lucencies involving the mid segments of the bilateral L1 transverse processes, this may be ununited tip apophyses however the possibility of nondisplaced bilateral lumbar transverse process fractures in the appropriate clinical scenario could not be excluded, correlate with the site of pain. Impression: 1. Normal appearance of the thoracic spine anatomically aligned. 2. Indeterminate lucencies at the bilateral L1 transverse processes developmental variant with unfused tip apophyses versus nondisplaced bilateral transverse process injuries. The latter atypical outside of the setting of a substantial trauma but correlate with any upper lumbar pain if present. Dictated on workstation # [id number] Dict: 06/17/19916 Trans: 06/17/19925 [facility] [phone] Interpreted by: CHRIS ALMONTE Departure Impression Primary Impression: Contusion of upper back Qualified Codes: S20.221A - Contusion of right back wall of thorax, initial encounter Additional Impressions: Fall on same level Qualified Codes: W18.30XA - Fall on same level, unspecified, initial encounter Nausea and vomiting Qualified Codes: R11.2 - Nausea with vomiting, unspecified Marijuana use Disposition: 01 HOME, SELF-CARE Condition: Improved Departure-Patient Inst. Decision time for Depature: 10:08 Referrals: [facility] (PCP/Family) Primary Care Physician Patient Instructions: Contusion (DC) Add. Discharge Instructions: Drink plenty of clear liquids to stay well-hydrated. You may apply ice and/or gentle heat to affected areas if that helps. You may continue to use Tylenol (acetaminophen) up to 650 mg every 6 hours as needed for pain. Add Ultram (tramadol) as prescribed for pain not controlled by Tylenol. Follow-up with your primary care provider if not gradually improving over the next several days as anticipated. Avoid use of marijuana products as this may be a major cont ributing factor to your nausea and vomiting. You may continue to use Zofran as directed for nausea and vomiting. All discharge instructions reviewed with patient and/or family. Voiced understanding. Scripts Tramadol HCl (Ultram) 50 Mg Tablet 50 MG PO Q6H PRN for PAIN-MODERATE (5-7), #5 TAB Prov: SHARRI FONG MD 06/17/19 Copy Copies To 1: VILMA LUCIO JOSHUA T MD Jun 17, 2019 09:58
[2019-06-17] MEDS ORDERED: TRAM-42 PO (10:08)
[2019-06-17] MEDS ORDERED: KETOROLAC 30 MG/ML VIAL IVP ONE (10:15)
[2019-06-17] MEDS ORDERED: ORPHENADRINE 60 MG/2 ML (NORFLEX) AMP IV ONE (10:15)
[2019-06-17 10:20] VITALS: BP 112/68
== END 2019-06-17 10:34 | disposition home or self-care (01) ==
LOC: EDUNIT# 07:38 → ER 07:39
DX: S20.221A Contusion of right back wall of thorax, initial encounter (principal); R11.2 Nausea with vomiting, unspecified; F12.90 Cannabis use, unspecified, uncomplicated; K21.9 Gastro-esophageal reflux disease without esophagitis; Z87.891 Personal history of nicotine dependence; Z77.22 Contact with and (suspected) exposure to environmental tobacco smoke (acute) (chronic); W17.89XA Other fall from one level to another, initial encounter; Y93.41 Activity, dancing
CPT/HCPCS: 36415; 71100; 72070; 80053; 80306; 81000; 83690; 83735; 84703; 85025